=== PATIENT | male | born 1955 | race Caucasian/White ===

== ENCOUNTER → 2018-05-17 | Outpatient (CLI) | payer BC ==
[2018-05-17 12:09] LABS: Blood Urea Nitrogen 17 mg/dL (9-20)
--- NOTE | 2018-05-17 15:54 | CT ---
EXAMINATION TYPE: CT pelvis w con DATE OF EXAM: 05/17/2018 COMPARISON: None INDICATION: Prostate CA DLP: 965.7 mGycm, Automated exposure control for dose reduction was used. CONTRAST: 100 mL of Isovue 300. Study performed with Oral Contrast TECHNIQUE: Axial images were obtained from above the iliac crests to the pubic rami in the axial plan e at 5 mm thick sections. Reconstructed images are reviewed on the computer in the coronal plane. FINDINGS: CT PELVIS: Vascular calcification is within the aorta. Loops of bowel within the visualized abdomen and pelvis are normal. There are loops of bowel whic h are incompletely distended or lack oral contrast limiting their evaluation. Appendix: Normal as visualized. Urinary bladder: Normal. Genitourinary structures: Prostate contains a couple of calcifications. Patient's known prostate canc er is not identified by CT. Osseous structures: No suspicious lytic or sclerotic lesions. Lymphadenopathy: No suspicious enlarged inguinal pelvic or greater canal adenopathy is evident. There are scattered small inguinal lymph nodes present. The largest measures 0.9 cm. IMPRESSIONS: 1. No suspicious changes to suggest metastatic disease from prostate cancer within the [id number] .
--- NOTE | 2018-05-19 11:26 | NM ---
EXAMINATION TYPE: NM bone scan whole body DATE OF EXAM: 05/17/2018 COMPARISON: Correlation CT pelvis 05/17/2018 HISTORY: 62-year-old male history of prostate cancer Technique: Delayed whole-body scanning was performed following the injection of 24.6 mCi Tc 99m MDP. Images acquired 3.5 hours post injection. FINDINGS: Degenerative tracer activity in the shoulders and in the right greater than left forefeet. No suspici ous distribution of tracer activity to suggest osseous metastatic disease. Focal uptake along the ant erior aspects of the proximal tibias on both sides corresponds to the patellar tendon insertion. IMPRESSION: No scintigraphic evidence for osseous metastatic disease.
== END | disposition home or self-care (01) ==
LOC: RADNMMAIN 11:30
PROVIDERS: ATTEND Urology
DX: C61 Malignant neoplasm of prostate (principal)
CPT/HCPCS: 82565; 84520; 72193; 78306; A9503; Q9967

== ENCOUNTER → 2018-07-04 | Outpatient (CLI) | payer BC ==
[2018-07-04 11:12] LABS: Basophils # (A) 0.1 k/uL (0-0.2); Basophils % (A) 1 %; Eosinophils # (A) 0.2 k/uL (0-0.7); Eosinophils % (A) 2 %; HCT 51.4 % (39.0-53.0); HGB 16.6 gm/dL (13.0-17.5); Lymphocytes # (A) 2.1 k/uL (1.0-4.8); Lymphocytes % (A) 27 %; MCH 32.8 pg (25.0-35.0); MCHC 32.2 g/dL (31.0-37.0); MCV 101.8 fL (80.0-100.0); Macrocytosis Slight; Monocytes # (A) 0.7 k/uL (0-1.0); Monocytes % (A) 8 %; Neutrophils # (A) 4.7 k/uL (1.3-7.7); Neutrophils % (A) 60 %; Platelet Count 279 k/uL (150-450); RBC 5.06 m/uL (4.30-5.90); RDW 13.4 % (11.5-15.5); WBC 7.8 k/uL (3.8-10.6)
[2018-07-04 11:32] LABS: Anion Gap 9 mmol/L; Blood Urea Nitrogen 15 mg/dL (9-20); Calcium 9.5 mg/dL (8.4-10.2); Carbon Dioxide 24 mmol/L (22-30); Chloride 107 mmol/L (98-107); Glucose 81 mg/dL (74-99); Potassium 4.6 mmol/L (3.5-5.1); Sodium 140 mmol/L (137-145)
== END ==
LOC: LABPAT 10:22
PROVIDERS: ATTEND Urology
DX: Z01.818 Encounter for other preprocedural examination (principal); Z01.812 Encounter for preprocedural laboratory examination; C61 Malignant neoplasm of prostate; I10 Essential (primary) hypertension
CPT/HCPCS: 80048; 85025; 93005

== ENCOUNTER 2018-07-11 07:51 | Day surgery (SDC) | payer BC ==
[2018-07-05 12:56] VITALS: BMI 30.5
--- NOTE | 2018-07-08 17:57 | P.GSHP ---
History of Present Illness H&P Date: 07/07/18 Chief Complaint: Prostate cancer The patient is a 62-year-old white male evaluated for an elevated PSA level of 8.73. He has no family history of prostate cancer. Prostate ultrasound revealed a prostate volume of 45.6 mL, with no echogenic abnormalities. Biopsies showed Zoe 6 and 8 adenocarcinoma in 5 of 12 biopsies. The Zoe 8 disease was at the right lateral base and right lateral mid gland. A computed tomography scan and bone scan were obtained for staging purposes and were negative. He was offered the options of robotic-assisted laparoscopic prostatectomy (RALP) versus IMRT/ADT. He has elected to be treated via the latter, and received a Lupron injection on 06/27/2018. He desires a transperineal SpaceOar implant prior to the radiation therapy. - Genitourinary (Female) Genitourinary: Reports urinary frequency Past Medical History Past Medical History: Deep Vein Thrombosis (DVT), Hyperlipidemia Additional Past Medical History / Comment(s): Prostate Cancer, DVT Right leg, Graves disease 3 years ago History of Any Multi-Drug Resistant Organisms: None Reported Past Anesthesia/Blood Transfusion Reactions: No Reported Reaction Smoking Status: Current every day smoker - Past Family History Mother Family Medical History: No Reported History Medications and Allergies Home Medications Medication Instructions Recorded Confirmed Type Atorvastatin Calcium [Lipitor] 10 mg PO DAILY 07/05/18 07/05/18 History Sildenafil Citrate [Viagra] 25 mg PO ONCE PRN 07/05/18 07/05/18 History Allergies Allergy/AdvReac Type Severity Reaction Status Date / Time No Known Allergies Allergy Verified 07/05/18 12:44 Surgical - Exam - General well developed, well nourished, no distress - Respiratory normal respiratory effort - Abdomen Abdomen: soft, non tender, no guarding, no rigid, no rebound - Genitourinary normal penis with no external lesions, testicles non-tender - Rectum Rectum: normal sphincter tone, no masses, other (Prostate moderately enlarged but smooth) - Psychiatric oriented to time, oriented to person, oriented to place, speech is normal, memory intact Assessment and Plan (1) Malignant neoplasm of prostate Status: Acute Code(s): C61 - MALIGNANT NEOPLASM OF PROSTATE SNOMED Code(s): 203568248 Plan: Transperineal SpaceOar implant. The patient has a good understanding of the procedure, and the rationale for it. Risks include anesthesia, and the fact that the implant will need to be aborted if there is rectal perforation.
[~2018-07-11 07:51] MED LIST: HYDROmorphone 0.5 MG/0.5 ML SYRINGE IVP PRN; LACTATED RINGERS 1,000 ML IV SCH; LIDOCAINE 1% 20 ML VIAL (10MG/ML) FOR IV START INTRADERMA PRN; ONDANSETRON 4 MG/2 ML VIAL IVP ONE; ceFAZolin IN SWFI 2 GM/20 ML SYRINGE IVP ONE; fentaNYL (PF) 50 MCG/ML 2 ML AMP IV PRN
[2018-07-11 09:06] VITALS: RESP 16
[2018-07-11] MEDS ORDERED: PROPOFOL 10 MG/ML 20 ML VIAL IV ONE (09:11)
[2018-07-11] MEDS ORDERED: fentaNYL (PF) 50 MCG/ML 2 ML AMP ONE (09:11)
[2018-07-11] MEDS ORDERED: SUCCINYLCHOLINE CHLORIDE 100 MG/5 ML SYR IV ONE (09:11)
[2018-07-11] MEDS ORDERED: LIDOCAINE 1% INJ 10MG/ML (20 ML MDV) ONE (09:11)
[2018-07-11] MEDS ORDERED: MIDAZOLAM 2 MG/2 ML VIAL ONE (09:11)
[2018-07-11] MEDS ORDERED: PHENYLEPHRINE-0.9% NACL SYG 1 MG/10 ML SYRINGE ONE (09:11)
[2018-07-11] MEDS ORDERED: LIDOCAINE 1% (PF) 10 MG/ML (30 ML SDV) SQ ONE (09:39)
[2018-07-11 10:16] VITALS: TEMP 97
--- NOTE | 2018-07-11 11:39 | P.OP ---
Date of Procedure: 07/11/18 Preoperative Diagnosis: Prostate Cancer Postoperative Diagnosis: Same Procedure(s) Performed: Insertion of SpaceOar Implant Anesthesia: AILYN Surgeon: Danny Zimmerman Estimated Blood Loss (ml): 0 IV fluids (ml): 600 Pathology: none sent Condition: stable Disposition: PACU Indications for Procedure: The patient is a 62-year-old white male evaluated for an elevated PSA level of 8.73. He has no family history of prostate cancer. Prostate ultrasound reveale d a prostate volume of 45.6 mL, with no echogenic abnormalities. Biopsies showed Zoe 6 and 8 adenocarcinoma in 5 of 12 biopsies. The War[place] 8 disease was at the right lateral base and right lateral mid gland. A computed tomography scan and bone scan were obtained for staging purposes and were negative. He was offered the options of robotic-assisted laparoscopic prostatectomy (RALP) versus IMRT/ADT. He has elected to be treated via the latter, and received a Lupron injection on 06/27/2018. He desires a transperineal SpaceOar implant prior to the radiation therapy. Operative Findings: Excellent distance created between prostate and rectum. Description of Procedure: The patient was taken to the operating room and placed in the dorsolithotomy position, with his legs supported in Royce stirrups. The external genitalia was prepped and draped sterilely. The Bruel and Kjaer transrectal ultrasound probe was placed intrarectally. The prostate was imaged. The probe was then placed within the stabilizing stand. Using a spinal needle, 1% lidocaine was injected in the perineal midline. The spinal needle was then advanced under ultrasonic guidance to the level of the urogenital diaphragm, and lidocaine was used to infiltrate the tissues as the needle was withdrawn. Next, the SpaceOar needle was passed through the midline of the perineum, 1-2 cm anterior to the anal opening. The needle was slowly advanced under ultrasonic guidance until the needle tip was located within the fat plane between the prostate and rectum, at the level of the mid prostate gland. The needle was confirmed to be midline on the axial imaging. A small amount of normal saline was injected for hydrodissection. Next, the SpaceOar components were mixed and loaded into the Y connector per protocol. The Y connector was then connected to the needle, and the components were injected slowly over a course of approximately 12 seconds. Significant distance was created between the prostate and rectum, as desired. It should be noted that at no point was there any concern of rectal perforation. The needle was withdrawn, as well as the transrectal ultrasound probe, and the procedure was terminated. The patient tolerated the procedure well and was taken to the recovery room in stable condition.
[2018-07-11 12:07] VITALS: BP 129/70; PULSE 68
== END 2018-07-11 12:05 | disposition home or self-care (01) ==
LOC: OR 07:51
PROVIDERS: ATTEND Urology
DX: C61 Malignant neoplasm of prostate (principal); E78.5 Hyperlipidemia, unspecified; Z86.718 Personal history of other venous thrombosis and embolism; E05.00 Thyrotoxicosis with diffuse goiter without thyrotoxic crisis or storm; F17.200 Nicotine dependence, unspecified, uncomplicated; Z79.899 Other long term (current) drug therapy
CPT/HCPCS: 55874; J2250; J2405; J2001 ×2; J3010; J2370; J0330; J2704; J0690

== ENCOUNTER → 2018-08-08 | Outpatient (CLI) | payer BC, OTHER ==
--- NOTE | 2018-08-09 07:50 | US ---
EXAMINATION TYPE: US gallbladder DATE OF EXAM: 08/08/2018 COMPARISON: NONE CLINICAL HISTORY: K80 Cholelithiasis. Calculus of gallbladder with acute cholecystitis EXAM MEASUREMENTS: Liver Length: 15.5 cm Gallbladder Wall: 0.27 cm CBD: 0.53 cm Right Kidney: 10.0 x 6.5 x 6.6 cm Pancreas: Tail obscured by overlying bowel gas Liver: appears wnl Gallbladder: Length measures: 10.4 cm, appears distended. Evidence for sonographic Tidwell's sign: no CBD: wnl Right Kidney: Anechoic area seen superiorly measurin.7 x 1.0 x 0.7 cm IMPRESSION: 1. Hydropic size of the gallbladder without cholelithiasis nor common bile duct dilatation or additio nal findings to suggest acute cholecystitis. Biliary dyskinesia is suspected and HIDA scan with CCK i s recommended. 2. Benign-appearing simple right 1.7 cm renal cyst.
== END ==
LOC: RADUSMAIN 17:44
PROVIDERS: ATTEND Radiology Radiation Oncology
DX: K80.00 Calculus of gallbladder with acute cholecystitis without obstruction (principal)
CPT/HCPCS: 76705

== ENCOUNTER → 2019-09-29 | Outpatient (CLI) | payer OTHER | END | disposition home or self-care (01) | LOC: LABWHC1 10:02 | PROVIDERS: ATTEND Radiology Radiation Oncology | DX: C61 Malignant neoplasm of prostate (principal); Z92.3 Personal history of irradiation; F17.210 Nicotine dependence, cigarettes, uncomplicated | CPT/HCPCS: 36415; 84153 ==

== ENCOUNTER 2020-04-12 13:42 | Emergency (ER) | payer OTHER ==
[2020-04-12 14:03] VITALS: BP 150/85; PULSE 88; RESP 18; TEMP 98.4
[2020-04-12] MEDS ORDERED: LIDOCAINE 1% INJ 10MG/ML (20 ML MDV) SQ ONE (14:17)
[2020-04-12] MEDS ORDERED: BACITRACIN OINT 1 EACH PACKET TOPICAL ONE (14:17)
[2020-04-12] MEDS ORDERED: DIPH,PERTUS(ACELL)TETVAC-LF 0.5 ML VIAL IM ONE (14:18)
--- NOTE | 2020-04-12 14:34 | XR ---
EXAMINATION TYPE: XR finger LT DATE OF EXAM: 04/12/2020 CLINICAL HISTORY: pain Left thumb digit. TECHNIQUE: 3 views of the left thumb digit are submitted. COMPARISON: None FINDINGS: No displaced fracture is seen with certainty. Joint spaces are well-preserved. Soft tissue injury noted without evidence for radiopaque foreign body. IMPRESSION: No acute displaced fracture or dislocation.
--- NOTE | 2020-04-12 14:47 | ED ---
Wound/Laceration HPI - General Chief Complaint: Wound/Laceration Stated Complaint: Finger Lac Time Seen by Provider: 04/12/20 14:10 Source: patient Mode of arrival: ambulatory Limitations: no limitations - History of Present Illness Initial Comments: Patient is a 64-year-old male presenting to emergency Department with complaints of a laceration to his left thumb. Patient states about an hour ago he was using a table saw when it accidently slipped and he cut his left thumb. Bleeding is controlled at this time with pressure and a bandage. He denies being on blood thinners. He does not remember his last tetanus vaccine. He has no further complaints at this time. Upon arrival to the ER his vitals are stable. - Related Data Home Medications Medication Instructions Recorded Confirmed Atorvastatin Calcium [Lipitor] 10 mg PO DAILY 07/05/18 07/05/18 Previous Rx's Medication Instructions Recorded Cephalexin [Keflex] 500 mg PO BID 3 Days #6 cap 04/12/20 Allergies Allergy/AdvReac Type Severity Reaction Status Date / Time No Known Allergies Allergy Verified 04/12/20 13:59 Review of Systems ROS Statement: Those systems with pertinent positive or pertinent negative responses have been documented in the HPI. ROS Other: All systems not noted in ROS Statement are negative. Past Medical History Past Medical History: Hyperlipidemia Additional Past Medical History / Comment(s): Prostate CA (in remission) History of Any Multi-Drug Resistant Organisms: None Reported Additional Past Surgical History / Comment(s): "bypass to BLE" Past Psychological History: No Psychological Hx Reported Smoking Status: Current every day smoker Past Alcohol Use History: None Reported Past Drug Use History: None Reported General Exam - General Exam Comments Initial Comments: GENERAL: Patient is well-developed and well-nourished. Patient is nontoxic and in no ac freddy distress. HEAD: Atraumatic, normocephalic. EYES: Pupils equal round and reactive to light, extraocular movements intact, sclera anicteric, conjunctiva are normal. Eyelids were unremarkable. ENT: TMs normal, nares patent, oropharynx clear without exudates. Moist mucous membranes. NECK: Normal range of motion, supple without lymphadenopathy or JVD. LUNGS: Unlabored respirations. Breath sounds clear to auscultation bilaterally and equal. No wheezes rales or rhonchi. HEART: Regular rate and rhythm without murmurs, rubs or gallops. ABDOMEN: Soft, nontender, normoactive bowel sounds. No guarding, no rebound. No masses appreciated. : Deferred MUSCULOSKELETAL: Normal extremities with adequate strength and normal range of motion, no pitting or edema. No clubbing or cyanosis. NEUROLOGICAL: Patient is alert and oriented x 3. Motor and sensory are also intact. Cranial nerves II through XII grossly intact. Symmetrical smile. Normal speech, normal gait. PSYCH: Normal mood, normal affect. SKIN: Warm, Dry, normal turgor. Patient has a U shaped laceration to the palmar aspect of his left thumb, no nail involvement. This is approximately 3 cm in length altogether. Bleeding is controlled at this time. Limitations: no limitations Course Vital Signs 04/12/20 14:00 Temperature 98.4 F Pulse Rate 88 Respiratory 18 Rate Blood Pressure 150/85 O2 Sat by Pulse 98 Oximetry Procedures - Laceration Laceration #1 Consent Obtained: verbal consent Indication: laceration Site: hand (Left thumb, palmar aspect) Size (cm): 3 Description: irregular (U-shaped) Depth: simple, single layer Anesthetic Used: lidocaine 1% Anesthesia Technique: nerve block Amount (mls): 3 Pre-repair: irrigated extensively Type of Sutures: nylon Size of Sutures: 5-0 Number of Sutures: 7 Technique: simple, interrupted Patient Tolerated Procedure: well Medical Decision Making - Medical Decision Making Patient is a 64-year-old male here with a U-shaped laceration on his left thumb, 3 cm in length total. Bleeding is controlled. He is not on blood thinners. His tetanus vaccine was updated today. Patient's wound was cleaned, closed with 7, 5-0 sutures. Patient tolerated procedure well. Did do an x-ray which reveals no acute fractures dislocations. I did give him a tablet of Keflex in the ER and will continue him on a few days of Keflex outpatient. He is in agree ment with this plan of care. He is stable for discharge. He will have stitches removed in 7-10 days. Return parameters were discussed with the patient he verbalizes understanding. Disposition Clinical Impression: Laceration of left thumb Disposition: HOME SELF-CARE Condition: Stable Instructions (If sedation given, give patient instructions): Care For Your Stitches (ED) Additional Instructions: Please return to the Emergency Department if symptoms worsen or any other concerns. Take antibiotic as prescribed. Sutures need to be removed in 7-10 days. Keep wound clean and dry. Prescriptions: Cephalexin [Keflex] 500 mg PO BID 3 Days #6 cap Is patient prescribed a controlled substance at d/c from ED?: No Referrals: Abdullahi Champion MD [Primary Care Provider] - 1-2 days
[2020-04-12] MEDS ORDERED: CEPHALEXIN 500 MG CAP PO STA (14:48)
== END 2020-04-12 15:44 | disposition home or self-care (01) ==
LOC: EC 13:42
DX: S61.012A Laceration without foreign body of left thumb without damage to nail, initial encounter (principal); E78.5 Hyperlipidemia, unspecified; F17.200 Nicotine dependence, unspecified, uncomplicated; Z79.899 Other long term (current) drug therapy; Z23 Encounter for immunization; Z85.46 Personal history of malignant neoplasm of prostate; W26.8XXA Contact with other sharp object(s), not elsewhere classified, initial encounter
CPT/HCPCS: 73140; 90715; 99283; 12002; 90471; J2001

== ENCOUNTER → 2020-05-11 | Outpatient (CLI) | payer OTHER | END | disposition home or self-care (01) | LOC: LABWHC1 11:43 | PROVIDERS: ATTEND Radiology Radiation Oncology | DX: C61 Malignant neoplasm of prostate (principal); Z92.3 Personal history of irradiation; F17.210 Nicotine dependence, cigarettes, uncomplicated | CPT/HCPCS: 36415; 84153 ==

== ENCOUNTER → 2022-03-17 | Outpatient (CLI) | payer MEDICARE, OTHER ==
[2022-03-17 13:54] LABS: African American GFR (CKD) >90 (>60 ml/min/1.73 sqM); Blood Urea Nitrogen 14 mg/dL (9-20); Non-African American GFR(CKD) >90 (>60 ml/min/1.73 sqM)
--- NOTE | 2022-03-17 14:44 | CT ---
EXAMINATION TYPE: CT soft tissue neck w con DATE OF EXAM: 03/17/2022 2:22 PM COMPARISON: None HISTORY: r/o fb, fishbone stuck in throat CT DLP: 535 mGycm Automated exposure control for dose reduction was used. CONTRAST: CT scan of the neck is performed following with IV Contrast, patient injected with 70cc mL of Isovue 300. Axial images are obtained, coronal and sagittal reformatted images are reviewed. FINDINGS: The thyroid gland is mildly prominent but symmetric without focal mass. The larynx including the cricoid, arytenoid, thyroid cartilages and vocal cords are normal and symmet pili. The tongue base, epiglottis, aryepiglottic folds, piriform sinuses and vallecula are normal and symme tric. There is no pharyngeal or parapharyngeal mass within the oral and nasopharynx. The parotid and submandibular glands are normal and symmetric. The great vessels of the neck are normal. There is no adenopathy. There is no soft tissue mass. There is no definite evidence for foreign body within the pharynx, airway or upper esophagus. IMPRESSION: No significant abnormality seen.
== END | disposition home or self-care (01) ==
LOC: RADCTMAIN 13:23
PROVIDERS: ATTEND Otolaryngology
DX: S10.15XA Superficial foreign body of throat, initial encounter (principal)
CPT/HCPCS: 82565; 84520; 70491; 36415; Q9967

== ENCOUNTER 2022-04-05 09:51 | Day surgery (SDC) | payer MEDICARE, OTHER ==
[~2022-04-05 09:51] MED LIST changes: +DEXAMETHASONE SOD PHOSPHATE 4 MG/ML 1 ML VIAL IV ONE; +DEXAMETHASONE SOD PHOSPHATE 4 MG/ML 1 ML VIAL IV PRN; +FAMOTIDINE 20 MG/2 ML VIAL IV PRN; +LIDOCAINE 1% (10MG/ML) FOR IV START INTRADERMA PRN; -LIDOCAINE 1% 20 ML VIAL (10MG/ML) FOR IV START INTRADERMA PRN; +MIDAZOLAM 2 MG/2 ML VIAL IV PRN; +ONDANSETRON 4 MG/2 ML VIAL IVP PRN; -ceFAZolin IN SWFI 2 GM/20 ML SYRINGE IVP ONE; -fentaNYL (PF) 50 MCG/ML 2 ML AMP IV PRN
[2022-04-05 11:44] LABS: Glucose,Whole Blood 111 mg/dL (70-110)
[2022-04-05] MEDS ORDERED: LIDOCAINE 2% INJ 20 MG/ML (2 ML VIAL) ONE (13:10)
[2022-04-05] MEDS ORDERED: ROCURONIUM 10 MG/ML (5 ML VIAL) IV ONE (13:10)
[2022-04-05] MEDS ORDERED: fentaNYL (PF) 50 MCG/ML 2 ML AMP ONE (13:10)
[2022-04-05] MEDS ORDERED: MIDAZOLAM 2 MG/2 ML VIAL ONE (13:10)
[2022-04-05] MEDS ORDERED: NEOSTIGMINE 1 MG/ML 10 ML VIAL ONE (13:10)
[2022-04-05] MEDS ORDERED: GLYCOPYRROLATE 0.2 MG/ML 2 ML VIAL ONE (13:10)
[2022-04-05] MEDS ORDERED: DEXAMETHASONE SOD PHOS (MDV) 100 MG/10 ML VIAL ONE (13:10)
[2022-04-05] MEDS ORDERED: PROPOFOL 10 MG/ML 20 ML VIAL IV ONE (13:10)
[2022-04-05] MEDS ORDERED: SUCCINYLCHOLINE CHLORIDE 200 MG/10 ML VIAL IV ONE (13:10)
--- NOTE | 2022-04-05 14:03 | P.OP ---
Date of Procedure: 04/05/22 Preoperative Diagnosis: Globus sensation rule out foreign body in the throat Postoperative Diagnosis: Same Procedure(s) Performed: Direct laryngoscopy Anesthesia: AILYN Surgeon: Delfino Ramirez Estimated Blood Loss (ml): 0 Pathology: none sent Condition: stable Disposition: PACU Indications for Procedure: Is a 66-year-old white male who swallowed some chicken and felt that he had a chicken bone lodged in the throat. He had plain x-rays which were negative flexible laryngoscopy which was negative and computed tomography scan of the neck which was negative. He still has foreign body sensation in the throat anterior laryngeal area diffusely and therefore we proceeded with direct laryngoscopy. Operative Findings: Mild diffuse lingual tonsillar hypertrophy however no focal lesions or erythema purulence or foreign body. Description of Procedure: The patient was brought in the operative suite and placed in a supine position. The patient underwent induction of general anesthesia with oral endotracheal intubation without difficulty. The patient was prepped and draped in the usual aseptic fashion. Tooth Guard was placed. Direct laryngoscopy was performed with systematic evaluation of the base of tongue vallecula both piriform sinuses post cricoid area and endolarynx. No abnormal masses or foreign bodies were noted. Laryngoscope and tooth guard were removed. Palpation of the base of tongue and vallecula did not reveal any abnormal masses or lesions otherwise either. The patient was then allowed to emerge from general anesthesia having tolerated well was extubated in the operating suite and transferred to postop recovery area in satisfactory condition.
[2022-04-05 14:24] VITALS: TEMP 96.8
[2022-04-05 15:21] VITALS: RESP 20
[2022-04-05 15:48] VITALS: BP 129/82; PULSE 80
== END 2022-04-05 15:52 | disposition home or self-care (01) ==
LOC: OR 09:51
PROVIDERS: ATTEND Otolaryngology
DX: J06.0 Acute laryngopharyngitis (principal); G47.30 Sleep apnea, unspecified; E07.9 Disorder of thyroid, unspecified; E78.5 Hyperlipidemia, unspecified; N40.0 Benign prostatic hyperplasia without lower urinary tract symptoms; F17.210 Nicotine dependence, cigarettes, uncomplicated; Z79.899 Other long term (current) drug therapy
CPT/HCPCS: 31525; J2250; J0330; J1100 ×2; J2710; J2405; J3010; J2704; J2001

== ENCOUNTER → 2023-11-01 | Outpatient (CLI) | payer MEDICARE, OTHER ==
[2023-11-01 18:29] LABS: HCT 50.7 % (39.6-50.0); HGB 16.9 g/dL (13.0-17.0); MCH 33.6 pg (27.0-32.0); MCHC 33.3 g/dL (32.0-37.0); MCV 100.8 FL (80.0-97.0); Mean Platelet Volume 9.8 FL (9.5-12.2); NRBC Per 100 WBC 0 X 10*3/uL (0.00-0.01); Platelet Count 213 X 10*3/uL (140-440); RBC 5.03 X 10*6/uL (4.40-5.60); RDW 14.4 % (11.5-14.5); WBC 6.25 X 10*3/uL (4.50-10.00)
[2023-11-01 18:42] LABS: Blood Urea Nitrogen 16.6 mg/dL (9.0-27.0); Carbon Dioxide 25.4 mmol/L (21.6-31.8); Chloride 103 mmol/L (96-109); Potassium 4.8 mmol/L (3.5-5.5); Sodium 138 mmol/L (135-145)
== END | disposition home or self-care (01) ==
LOC: LABPAT 14:01
PROVIDERS: ATTEND Internal Medicine Interventional Cardiology
DX: Z01.812 Encounter for preprocedural laboratory examination (principal); R94.39 Abnormal result of other cardiovascular function study
CPT/HCPCS: 36415; 80051; 82565; 84520; 85027

== ENCOUNTER 2023-11-07 10:41 | Inpatient (IN) | payer MEDICARE, OTHER ==
[2023-11-01 09:44] VITALS: BMI 32.1
[~2023-11-07 10:41] MED LIST changes: +ALPRAZolam 0.25 MG TAB PO PRN; +ALPRAZolam 0.5 MG TAB PO PRN; -DEXAMETHASONE SOD PHOSPHATE 4 MG/ML 1 ML VIAL IV ONE; -DEXAMETHASONE SOD PHOSPHATE 4 MG/ML 1 ML VIAL IV PRN; -FAMOTIDINE 20 MG/2 ML VIAL IV PRN; +HEPARIN SODIUM,PORCINE (1 ML) 2,500 UNIT in SODIUM CHLORIDE 0.9% 250 ML IRRIGATION PRN; +HEPARIN SODIUM,PORCINE 10,000 UNIT in SODIUM CHLORIDE 0.9% 1,000 ML IRRIGATION PRN; -HYDROmorphone 0.5 MG/0.5 ML SYRINGE IVP PRN; -LACTATED RINGERS 1,000 ML IV SCH; -LIDOCAINE 1% (10MG/ML) FOR IV START INTRADERMA PRN; -MIDAZOLAM 2 MG/2 ML VIAL IV PRN; +NITROGLYCERIN SL TABS 0.4 MG TAB SUBLINGUAL PRN; -ONDANSETRON 4 MG/2 ML VIAL IVP ONE; -ONDANSETRON 4 MG/2 ML VIAL IVP PRN
[2023-11-07] MEDS: SODIUM CHLORIDE 0.9% 1,000 ML IV ONE (10:48)
[2023-11-07 11:01] LABS: Glucose,Whole Blood 120 mg/dL (70-110)
[2023-11-07] MEDS: fentaNYL (PF) 50 MCG/1 ML VIAL IVP ONE (12:09)
[2023-11-07] MEDS: MIDAZOLAM 2 MG/2 ML VIAL IVP ONE (12:09)
[2023-11-07] MEDS: LIDOCAINE 1% INJ 10MG/ML (20 ML MDV) SQ ONE (12:09)
[2023-11-07] MEDS: VERAPAMIL 2.5 MG/ML 4 ML VIAL INTRAARTER ONE (12:10)
[2023-11-07] MEDS: VERAPAMIL SYRINGE (5 MG/10 ML) INTRAARTER ONE (12:11)
[2023-11-07] MEDS: HEPARIN SODIUM 1,000 UN/ML (10ML VL) IVP ONE (12:15)
[2023-11-07] MEDS: HEPARIN SODIUM,PORCINE 10,000 UNIT in SODIUM CHLORIDE 0.9% 1,000 ML IRRIGATION ONE (12:24)
[2023-11-07] MEDS: IOPAMIDOL-370 100ML BTL INTRATHECA ONE (12:24)
[2023-11-07] MEDS: HEPARIN SODIUM,PORCINE (1 ML) 2,500 UNIT in SODIUM CHLORIDE 0.9% 250 ML IRRIGATION ONE (12:25)
[2023-11-07] MEDS ORDERED: RX INFO: IV CONTRAST WAS GIVEN 1 EACH MISC MISCELLANE PRN (12:41)
--- NOTE | 2023-11-07 12:48 | P.CARDCATH ---
Date of Procedure: 11/07/23 Description of Procedure: Cardiac Catheterization: The patient is a 68-year-old male with known history of hyperlipidemia history of PAD status post revascularization who as part of his preoperative evaluation for hip surgery had a regular stress test where he had EKG changes at low exercise duration. Recommendations were made regarding cardiac catheterization, the risks and the complications were discussed with the patient who is in full understanding and agreement. 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 Using Xylocaine Anesthesia and modified Seldinger technique, a 6-Angolan sheath was introduced in the right radial artery . Subsequently, selective coronary angiography was performed using a 5-Angolan 3.5 bend Brandin catheter. Multiple views of the coronary artery including hemiaxial views were obtained. The 5 Angolan pigtail catheter was used to cross the aortic valve and LVEDP was calculated. Following that, catheter and sheath were removed. Hemostasis was obtained with deployment of vascular band . There was no immediate complication. Patient was returned to room in stable condition. Of note, the patient received a total of 5000 units of intravenous heparin as well as intra-arterial verapamil. Findings: Fluoroscopy: Severe calcification of the left main and proximal LAD was noted Left main: This is a large size vessel, bifurcating into the LAD and left circumflex, calcified. The left main distally has a 70 to 80% eccentric lesion at the bifurcation. LAD: This is a large size vessel, reaching to the apex, giving rise to 2 diagonal branch. The LAD at the ostium has a 95% stenosis, the rest of the vessel has no high-grade stenosis Left circumflex: This is a nondominant vessel giving rise to a large obtuse marginal branch. The ostium of the left circumflex has an 80 to 90% stenosis, the rest of the vessel has no high-grade stenosis RCA: This is a large dominant vessel, bifurcating into PDA and PLV, the mid RCA has diffuse intimal disease has 20 to 30% without any evidence of high-grade stenosis. Left Ventriculogram: Not performed Hemodynamics: There was no gradient across aortic valve, LVEDP was 20-22 mmHg Conclusion: 1. Calcified left main 2. Severe distal left main stenosis involving the ostium of the LAD and left circumflex 3. Mild disease in the mid right 4. Elevated LVEDP Recommendations: In view of the anatomy and the history of diabetes I have recommended to proceed with evaluation for CABG. The findings and the recommendations were discussed with the patient and the family and they were in full understanding and agreement. Duration of sedation is 15 minutes.
[2023-11-07] MEDS: ASPIRIN 325 MG TAB PO STA (14:47)
[2023-11-07] MEDS: NICOTINE 21MG/24HR PATCH TRANSDERM STA (15:14)
--- NOTE | 2023-11-07 16:13 | P.GSCN ---
History of Present Illness Consult date: 11/07/23 Reason for Consult: Coronary artery disease with left main disease Requesting physician: Radha Boston History of present illness: This is a 68-year-old gentleman who follows outpatient with Dr. Abdullahi Champion for primary care as well as Dr. Boston for cardiology. He has a previous medical history of hypertension, hyperlipidemia, peripheral arterial disease with previous aorto bifemoral bypass, obstructive sleep apnea with home CPAP use, type 2 diabetes, prostate cancer in 2020 status post radiation, current tobacco dependence, arthritis, and previous history of COVID. This gentleman needs a left total hip arthroplasty in underwent stress testing for cardiac clearance. Unfortunately his treadmill stress test indicated ischemic changes so he was sent to cardiology for workup. The patient denies any chest pain, shortness of breath, or any other symptomatology of angina. In the cardiology office he had a echocardiogram completed demonstrating normal left ventricular systolic function with EF 55-60%, no regional wall motion abnormalities, mild mitral regurgitation mild aortic stenosis, and mild tricuspid regurgitation. He was recommended to wear undergo heart catheterization which was completed today by Dr. Boston and which revealed distal left main stenosis 70 to 80%, ostial LAD stenosis 95% as well as ostial left circumflex stenosis 80 to 90%. Due to these findings consultation was placed to Dr. Rosales from cardiothoracic surgery for revascularization recommendations. Review of Systems Review of systems was completed and was negative except as noted - Musculoskeletal Musculoskeleta Comment(s): Arthritis pain left hip Past Medical History Past Medical History: Coronary Artery Disease (CAD), Cancer, Diabetes Mellitus, Deep Vein Thrombosis (DVT), Hyperlipidemia, Hypertension, Sleep Apnea/CPAP/BIPAP, Thyroid Disorder Additional Past Medical History / Comment(s): Prostate CA-received radiation, 2017 dvt rt leg 30 yrs ago,uses cpap, thyroid 4-5 yrs Graves disease, peripheral arterial disease History of Any Multi-Drug Resistant Organisms: None Reported Additional Past Surgical History / Comment(s): Aortobifemoral bypass, right eye surgery due to Graves., Past Anesthesia/Blood Transfusion Reactions: No Reported Reaction Past Psychological History: No Psychological Hx Reported Smoking Status: Current every day smoker Past Alcohol Use History: None Reported Past Drug Use History: None Reported Additional History: Currently smokes 1 pack cigarettes per day for greater than 40 years - Past Family History Mother Family Medical History: No Reported History Additional Family Medical History / Comment(s): "Bad legs." Medications and Allergies Home Medications Medication Instructions Recorded Confirmed Type Tamsulosin HCl [Flomax] 0.4 mg PO HS 04/04/22 11/01/23 History buPROPion HCL [buPROPion HCL Xl] 150 mg PO HS 04/04/22 11/01/23 History Atorvastatin [Lipitor] 10 mg PO HS 10/23/23 11/01/23 History Pioglitazone [Actos] 15 mg PO DAILY 10/23/23 11/07/23 History metFORMIN HCL 500 mg PO DAILY 10/23/23 11/07/23 History Aspirin 325 mg PO BID 11/01/23 11/07/23 History Metoprolol Succinate [Metoprolol 25 mg PO DAILY 11/01/23 11/01/23 History Succinate ER] Allergies Allergy/AdvReac Type Severity Reaction Status Date / Time No Known Allergies Allergy Verified 11/07/23 10:52 Surgical - Exam Vital Signs Temp Pulse Resp BP Pulse Ox 98.7 F 77 16 174/71 97 11/07/23 11:03 11/07/23 11:03 11/07/23 11:03 11/07/23 11:03 11/07/23 11:03 CONSTITUTIONAL: Awake and alert, appears comfortable, cooperative, well- developed, well-nourished, no pain, no acute distress EYES: Pupils equal, round, reactive to light, normal ocular movement ENT: Moist mucous membranes without oral lesions present NECK: No masses, no bruits, trachea midline RESPIRATORY: Lungs sounds diminished bilaterally. Respirations even, nonlabored. Currently on room air with oxygen saturation 96%. Strong nonproductive cough. No chest wall deformities. No clubbing or cyanosis present CARDIOVASCULAR: S1, S2 present. Slow but regular rhythm, sinus bradycardia on telemetry. Palpable peripheral pulses bilaterally. Bilateral lower extremity edema present. No calf pain or tenderness noted. Left radial Royce's test less than 8 seconds. GASTROINTESTINAL: Abdomen soft, nontender, nondistended without masses or organomegaly noted. There is no rebound or guarding present. Active bowel sounds present 4 quadrants. GENITOURINARY: Deferred INTEGUMENTARY: Skin is warm and dry with evidence of good perfusion. Bilateral lower extremities with evidence of peripheral vascular disease NEUROLOGIC: Cranial nerves II through XII intact, normal coordination, no obvious motor or sensory deficits, speech is normal MUSKULOSKELETAL: Able to move all extremities, strength equal bilaterally, normal posture PSYCHIATRIC: Alert and oriented to person place and time, appropriate affect, intact judgment and insight CLINICAL FRAILTY SCORE 4 Results - Labs Abnormal Lab Results - Last 24 Hours (Table) 11/07/23 Range/Units 10:57 POC Glucose (mg/dL) 120 H (70-110) mg/dL - Imaging EKG: image reviewed Additional studies: Heart catheterization films were reviewed with Dr. Rosales Assessment and Plan Assessment: Coronary artery disease with left main disease Hypertension Hyperlipidemia Peripheral arterial disease with previous aorto bifemoral bypass Obstructive sleep apnea with home CPAP use Type 2 diabetes Prostate cancer in 2020 status post radiation Current tobacco dependence Arthritis Previous history of COVID Plan: The patient was seen and examined at the bedside with Dr. Rosales. Chart/diagn ostics reviewed. The usual perioperative course of open-heart surgery was discussed in detail with the patient and his family, risks and benefits were reviewed, all questions were answered. Preoperative testing was initiated, once Completed we will calculate STS risk score. Will perform 5 m walk test once once testing has been completed. Consultation placed to pulmonology for pulmonary optimization. At this time our plan is for off-pump coronary artery bypass surgery with left internal mammary artery, left radial artery harvest, possible greater saphenous vein harvest, ligation of the left atrial appendage by Dr. Rosales tomorrow afternoon November 08, 2023. Recommend continuing aspirin, statin, beta-shelly therapy. Patient was counseled regarding the need for complete smoking cessation. Medical management of other comorbidities per internal medicine, cardiology. More recommendations to follow. Thank you Dr. Boston for this consult, we look forward to working with you in the care of your patient. I have personally seen and examined the patient, performed the documentation and the assessment and plan as written. Number of minutes spent on the visit: 30. RADHA Macedo
--- NOTE | 2023-11-07 16:24 | US ---
EXAMINATION TYPE: US carotid duplex BILAT DATE OF EXAM: 11/07/2023 COMPARISON: NONE CLINICAL INDICATION: Male, 68 years old with history of preop cardiac surgery; Preop cardiac surgery. Diabetic, smoker x 53 years. TECHNIQUE: Carotid duplex ultrasound examination. Indirect Doppler criteria was utilized. 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 Shadowing plaque seen within left carotid artery, left b ulb, left ECA and left ICA. Minimal plaque seen right bulb. Color defect seen left proximal ECA. IMPRESSION: No evidence for hemodynamically significant stenosis Criteria for Assigning % of Stenosis / Diameter reduction (Estimation based on the indirect measurements of the internal carotid artery velocities (ICA PSV). 1. Normal (no stenosis)=ICA PSV < 125 cm/s: ratio < 2.0: ICA EDV<40 cm/s. 2. Less than 50% stenosis=ICA PSV < 125 cm/s: ratio < 2.0: ICA EDV<40 cm/s. 3. 50 to 69% stenosis=ICA PSV of 125 to 230 cm/s: ration 2.0 ? 4.0: ICA EDV 40-100 cm/s. 4. Greater than 70% stenosis to near occlusion= ICA PSV > 230 cm/s: ratio > 4.0: ICA EDV > 100 cm/s. 5. Near occlusion= ICA PSV velocities may be low or undetectable: variable ratio and ICA EDV. 6. Total occlusion=unable to detect flow.
[2023-11-07 16:29] LABS: Glucose,Whole Blood 104 mg/dL (70-110)
--- NOTE | 2023-11-07 16:29 | US ---
EXAMINATION TYPE: Pre-Operative Non-Invasive Evaluation of the hand for Potential Radial Artery Adin , Measurements only DATE OF EXAM: 11/07/2023 4:23 PM CLINICAL INDICATION: Male, 68 years old with history of measurements only; Pre op cardiac surgery SIDE PERFORMED: Left TECHNIQUE: Radial artery is measured utilizing real time linear array sonography. Dominant hand: Duplex Findings: Radial Artery: Color flow seen Measurements in mm, transverse view: Left Radial: Proximal: Origin of radial artery and upper proximal radial artery were obscured by IV. Prox -mid section measures 2.6 x 2.5 cm. This segment is not fully proximal. Mid: 4.3 x 3.5 mm Distal: 3.6 x 2.8 mm IMPRESSION: 1. Left-sided radial artery measurements as noted above. 2. Performing surgeon to determine viability as conduit.
[2023-11-07 16:58] LABS: Basophils % (A) 0 %; Eosinophils # (A) 0.1 k/uL (0-0.7); Eosinophils % (A) 2 %; HCT 48.2 % (39.0-53.0); HGB 15.6 gm/dL (13.0-17.5); Lymphocytes # (A) 1.9 k/uL (1.0-4.8); Lymphocytes % (A) 27 %; MCH 33.7 pg (25.0-35.0); MCHC 32.4 g/dL (31.0-37.0); MCV 104.1 fL (80.0-100.0); Macrocytosis Slight; Mean Platelet Volume 8.1; Monocytes # (A) 0.6 k/uL (0-1.0); Monocytes % (A) 9 %; Neutrophils # (A) 4.3 k/uL (1.3-7.7); Neutrophils % (A) 60 %; Platelet Count 194 k/uL (150-450); RBC 4.63 m/uL (4.30-5.90); RDW 13.9 % (11.5-15.5); WBC 7.1 k/uL (3.8-10.6)
[2023-11-07 17:03] LABS: INR 1.1 (<1.2); Partial Thromboplastin Time 26.5 sec (22.0-30.0); Prothrombin Time 12.1 sec (10.0-12.5)
--- NOTE | 2023-11-07 17:12 | US ---
EXAMINATION TYPE: US vein mapping BILAT DATE OF EXAM: 11/07/2023 4:15 PM COMPARISON: NONE CLINICAL INDICATION: Male, 68 years old with history of preop cardiac surgery; Pre op cardiac surgery . Smoker. SIDE PERFORMED: Bilateral TECHNIQUE: Lower extremity saphenous vein is examined and measured utilizing real time linear array sonography. DUPLEX FINDINGS: Greater Saphenous: Color flow seen Measurements in mm: Right Greater Saphenous: Groin: 5.1 x 4.6 mm High Thigh: 4.9 x 3.9 mm Mid Thigh: 5.2 x 3.8 mm Above Knee: 5.2 x 4.5 mm Knee: 5.1 x 4.6 mm Below Knee: 4.3 x 3.5 mm Mid Calf: 4.1 x 3.3 mm At Ankle: 4.5 x 3.2 mm Left Greater Saphenous: Groin: 5.2 x 5.8 mm High Thigh: 5.2 x 4.6 mm Mid Thigh: 3.6 x 3.4 mm Above Knee: 3.5 x 2.7 mm Knee: 3.8 x 2.7 mm Below Knee: 3.5 x 3.1 mm Mid Calf: 3.2 x 2.5 mm At Ankle: 2.6 x 2.1 mm IMPRESSION: 1. Bilateral GSV measurements listed above. 2. Performing surgeon to determine viability as conduit.
--- NOTE | 2023-11-07 17:13 | CT ---
EXAMINATION TYPE: CT chest wo con DATE OF EXAM: 11/07/2023 COMPARISON: None HISTORY: 68-year-old male assess aorta for clampability TECHNIQUE: Contiguous axial scanning of the chest without IV contrast. Coronal/sagittal reconstructio ns performed. CT DLP: 529mGycm. Automatic exposure control utilized for a dose reduction. FINDINGS: The heart is normal size without pericardial effusion. Extensive three-vessel coronary artery calcifi cations are present. Moderate aortic valve calcifications demonstrated. Ectatic ascending aorta at 3.9 cm. Mild to moderat e atherosclerotic arch calcifications with conventional arch vessel branching anatomy. At least mild atherosclerotic narrowing of the origin of the brachiocephalic and left subclavian arteries and addit ional narrowing at the origin of the left vertebral artery. Ectatic upper descending thoracic aorta 3 .2 cm. Mildly enlarged caliber to the main right and left pulmonary arteries measuring up to 2.6 cm may refl ect underlying pulmonary arterial hypertension. No thoracic lymphadenopathy by CT size criteria. Large cutaneous/subcutaneous cyst left paramedian posterior mid to lower chest wall measuring 4.2 cm wide, axial image 86. A second similar lesion measuring 1.9 cm wide at the midline posterior lower ch est level. Smooth pleural thickening at the posterior right lower lobe. Moderate emphysematous change. Some patc hy and groundglass density at the left greater than right lung bases, probably atelectasis. No pleura l effusion. Appearance of small omental fat-containing ventral midline epigastric abdominal wall hernias measurin g up to 2.7 cm wide. Otherwise, visualized upper abdomen shows dense opacity within the distended bilateral renal collecti ng systems. Probable cyst right kidney measuring 3.4 cm and left kidney measuring 2.1 cm. This should be confirmed with renal ultrasound. Bones: Mild multilevel degenerative disc disease. IMPRESSION: 1. Extensive three-vessel coronary artery calcifications. Ectatic ascending aorta 3.9 cm. Conventiona l arch vessel branching anatomy with some atherosclerotic narrowing at the origin of the brachiocepha lic artery, left subclavian artery, and left vertebral artery. 2. COPD with moderate emphysema and possible underlying pulmonary arterial hypertension. 3. Suspect chronic pleural scarring with associated thickening along the posterior right lower lobe. Some groundglass and patchy bibasilar densities could reflect atelectasis or an interstitial pneumoni tis such as DIP. 4. A couple cutaneous/subcutaneous cysts along the left and midline posterior back measuring 4.2 and 1.9 cm. Correlate with physical exam findings. Suspect sebaceous cysts.
[2023-11-07 17:14] LABS: ALT 19 U/L (4-49); AST 20 U/L (17-59); African American GFR (CKD) >90 (>60 ml/min/1.73 sqM); Albumin 3.5 g/dL (3.5-5.0); Alkaline Phosphatase 77 U/L (38-126); Anion Gap 5 mmol/L; Blood Urea Nitrogen 17 mg/dL (9-20); Calcium 8.7 mg/dL (8.4-10.2); Carbon Dioxide 23 mmol/L (22-30); Chloride 110 mmol/L (98-107); Glucose 106 mg/dL (74-99); Magnesium 1.7 mg/dL (1.6-2.3); Non-African American GFR(CKD) >90 (>60 ml/min/1.73 sqM); Potassium 3.9 mmol/L (3.5-5.1); Sodium 138 mmol/L (137-145); Total Bilirubin 0.5 mg/dL (0.2-1.3)
[2023-11-07] MEDS: MD COMMUNICATION TO PHARMACY 1 EACH MISC PO ONE ×3 (18:03→18:04)
[2023-11-07] MEDS: SODIUM CHLORIDE 0.9% 1,000 ML in EMPTY BAG 1 BAG IV SCH (18:03)
[2023-11-07] MEDS: SODIUM CHLORIDE 0.9% 1,000 ML IV SCH (18:09)
[2023-11-07 20:03] LABS: Glucose,Whole Blood 102 mg/dL (70-110)
[2023-11-07] MEDS ORDERED: lisinopriL 5 MG TAB PO SCH (21:00)
[2023-11-07] MEDS: METOPROLOL SUCCINATE (ER) 25 MG TAB.ER.24H PO SCH (21:04)
[2023-11-07] MEDS: TAMSULOSIN 0.4 MG CAP.ER.24H PO SCH (21:04)
[2023-11-07] MEDS: MUPIROCIN 2% OINT 22 GM TUBE NASAL SCH (21:33)
[2023-11-07] MEDS: buPROPion XL 150 MG TAB.ER.24H PO SCH (21:33)
[2023-11-08 03:33] LABS: Chol/HDL Ratio 3.01 Ratio; LDL Cholesterol,Calculated 56.4 mg/dL (0.0-131.0)
[2023-11-08 03:42] LABS: Hepatitis A Antibody IgM Nonreactive (Nonreactive); Hepatitis B Core IgM Nonreactive (Nonreactive); Hepatitis C IgG Antibody Nonreactive (Nonreactive)
[2023-11-08 03:43] LABS: Hepatitis B Surface Antigen Nonreactive (Nonreactive)
[2023-11-08 04:21] LABS: Glucose,Whole Blood 109 mg/dL (70-110)
[2023-11-08] MEDS ORDERED: CARDIOPLEGIC SOLN (K+ 16 MEQ/L 1,000 ML with SOD BICARB SYR 8.4% (1 MEQ/ML) 20 ML, LIDO... PERFUSION NR (05:00)
[2023-11-08] MEDS ORDERED: INSULIN REGULAR 100 UNIT in SODIUM CHLORIDE 0.9% 100 ML IV SCH (05:00)
[2023-11-08] MEDS ORDERED: NOREPINEPHRINE 4 MG in SODIUM CHLORIDE 0.9% 250 ML IV SCH (05:00)
[2023-11-08] MEDS: ATORVASTATIN 10 MG TAB PO ONE (06:12)
[2023-11-08] MEDS: ASPIRIN 325 MG TAB PO ONE (06:12)
[2023-11-08] MEDS: METOPROLOL TARTRATE 12.5 MG TAB PO ONE (06:12)
[2023-11-08 06:33] LABS: Glucose,Whole Blood 105 mg/dL (70-110)
--- NOTE | 2023-11-08 06:59 | XR ---
EXAMINATION TYPE: XR chest 2V DATE OF EXAM: 11/08/2023 COMPARISON: CT chest 11/07/2023 INDICATION: Open heart surgery presurgical clearance TECHNIQUE: Frontal and lateral views of the chest are obtained. FINDINGS: The heart size is normal. The pulmonary vasculature is normal. There is hyperinflation findings the diaphragms compatible with COPD. Mild infiltrative changes in th e right lung base. Correlate for atelectasis or pneumonia.. IMPRESSION: 1. Mild right lower lobe infiltrate. Correlate for atelectasis or pneumonia. 2. COPD
[2023-11-08] MEDS: PIOGLITAZONE 15 MG TAB PO SCH (08:21)
[2023-11-08] MEDS ORDERED: ATORVASTATIN 40 MG TAB PO SCH (09:00)
[2023-11-08] MEDS ORDERED: ASPIRIN 81 MG PO SCH (09:00)
--- NOTE | 2023-11-08 10:53 | P.PN ---
Subjective Progress Note Date: 11/08/23 This is a 68-year old male patient of Dr. Boston with past medical history diabetes, tobacco use and dependence 1 pack/day, hyperlipidemia, peripheral vascular disease status post aortobifemoral bypass, obstructive sleep apnea with home CPAP, diabetes mellitus type 2, history of prostate cancer s/p radiation, history of DVT in the right leg many years ago. Patient was recently in the office for preop clearance for left total hip arthroplasty. Patient underwent a stress test as part of the workup and was found to have a poor exercise tolerance with more than [address] segment depression. Patient had no previous obstructive CAD. Patient was advised to undergo cardiac catheterization which was performed yesterday. Cardiac catheterization revealed calcified left main, severe distal left main stenosis involving the ostium of the LAD and left circumflex, mild disease in the mid right, elevated LVEDP. Patient was advised for CABG and was evaluated by cardiothoracic surgery. Workup and surgery has been scheduled. Blood pressure 119/67, heart rate 53, pulse ox 94% on room air. Right wrist with no hematoma or bleeding. Chest x-ray: Mid right lower lobe infiltrate. Correlate for atelectasis or pneumonia. COPD. Carotid Doppler revealed no evidence of hemodynamically significant stenosis. Laboratory studies: Hemoglobin 15.6. Sodium 138, potassium 3.9, BUN 17 creatinine 0.59. Hemoglobin A1c 7.5. Cholesterol 119, triglycerides 115, LDL 56 and HDL 39. TSH 1.49. Hepatitis negative. Home cardiac medications: Aspirin 81 mg daily, Lipitor 10 mg at bedtime, metoprolol succinate 25 mg daily. Review Of Systems: At the time of my exam: CONSTITUTIONAL: Denies fever or chills. HEENT: Denies blurred vision, vision changes, or eye pain. Denies hemoptysis CARDIOVASCULAR: Denies chest pain. Denies orthopnea. Denies PND. Denies palpitations RESPIRATORY: Denies shortness of breath. GASTROINTESTINAL: Denies abdominal pain. Denies nausea or vomiting. HEMATOLOGIC: Denies bleeding disorders. GENITOURINARY: Denies any blood in urine. SKIN: Denies puritis. Denies rash. Physical examination: Gen: This is a 68-year-old male in no acute distress VS: reviewed HEENT: Head is atraumatic, normocephalic. Pupils equal, round. Sclerae is anicteric. NECK: Supple. No JVD. LUNGS: Clear to auscultation. No wheezes or rhonchi. No intercostal retractions. HEART: Regular rate and rhythm. 3/6 systolic murmur. ABDOMEN: Soft No tenderness. EXTREMITIES: No pedal edema. No calf tenderness. NEUROLOGICAL: Patient is awake, alert and oriented x3. Assessment: Coronary artery disease with left main disease Hypertension Hyperlipidemia Peripheral vascular disease with previous aortobifemoral bypass Obstructive sleep apnea on home CPAP Diabetes mellitus type 2 Prostate cancer in 2020 status post radiation Current tobacco use and dependence Plan: Continue patient's home cardiac medications Patient is scheduled for CABG today Tobacco cessation. Patient will be provided with the [employer] quit line information at discharge. Further recommendations to follow based upon clinical course Thank you kindly for this consultation. Nurse practitioner note has been reviewed, I agree with documented findings and plan of care. Patient was seen and examined. Objective - Vital Signs Vital signs: Vital Signs Temp 97.8 F 11/08/23 08:20 Pulse 53 L 11/08/23 08:20 Resp 18 11/08/23 08:20 BP 119/67 11/08/23 08:20 Pulse Ox 94 L 11/08/23 08:20 FiO2 Intake & Output 11/07/23 11/08/23 11/08/23 18:59 06:59 18:59 Intake Total 820 Output Total 200 Balance 620 Weight 104.3 kg 103.2 kg Intake: IV 400 Oral 420 Output: Urine 200 - Labs CBC & Chem 7: 11/07/23 16:23 11/07/23 16:23 Labs: Abnormal Lab Results - Last 24 Hours (Table) 11/07/23 11/07/23 11/07/23 Range/Units 10:57 16:23 16:23 MCV 104.1 H (80.0-100.0) fL Chloride 110 H (98-107) mmol/L Creatinine 0.59 L (0.66-1.25) mg/dL Glucose 106 H (74-99) mg/dL POC Glucose (mg/dL) 120 H (70-110) mg/dL Hemoglobin A1c (<=6.0) % Total Protein 6.0 L (6.3-8.2) g/dL HDL Cholesterol 39.60 L (40.00-60.00) mg/dL Crossmatch 11/07/23 11/07/23 Range/Units 16:23 16:23 MCV (80.0-100.0) fL Chloride (98-107) mmol/L Creatinine (0.66-1.25) mg/dL Glucose (74-99) mg/dL POC Glucose (mg/dL) (70-110) mg/dL Hemoglobin A1c 7.5 H (<=6.0) % Total Protein (6.3-8.2) g/dL HDL Cholesterol (40.00-60.00) mg/dL Crossmatch See Detail
[2023-11-08] MEDS: IV FLUID CONTINUATION 900 ML IV ONE (11:23)
[2023-11-08 11:51] LABS: Glucose,Whole Blood 91 mg/dL (70-110)
--- NOTE | 2023-11-08 12:04 | P.CNPUL ---
History of Present Illness Consult date: 11/08/23 Requesting physician: Radha Boston Reason for consult: dyspnea, COPD, other Chief complaint: Chest pain, coronary disease. History of present illness: Pulmonary consult dated November 08, 2023. 68-year-old male who was seen by cardiology, for chest discomfort. The patient has a history of diabetes, chronic tobacco use, hyperlipidemia, and peripheral vascular disease. He had a previous aortobifemoral bypass. The patient had a stress test, for preoperative clearance, and was noted to have ST-T wave changes. For that reason, the patient underwent cardiac catheterization, was found to have significant coronary disease. The patient is scheduled for bypass grafting, with Dr. Rosales today. The patient is a smoker, having smoked for 52 years. I did look at his lung function. His FEV1 is 1.80 L which is 53% of predicted. Hence, he has moderately severe COPD. He does have shortness of breath on exertion. Currently he is on room air. He is getting saline at 75 cc an hour. His cardiac catheterization, revealed a calcified left main coronary artery, severe distal left main stenosis involving the ostium of the LAD and left circumflex, and mild disease in the right coronary artery. Chest CT showed extensive three-vessel coronary artery calcification. There is also changes of COPD/emphysema. Most recent labs include a white count 7.1, hemoglobin 15.6, hematocrit 48.2, and a platelet count of 194,000. Sodium 138, potassium 3.9, chlorides 110, CO2 23, BUN 17, creatinine 0.59. Glucose is 91. Review of Systems REVIEW OF SYSTEMS: CONSTITUTIONAL: [Negative.] NEUROLOGIC: [ Negative.] HEENT: [ Negative.] CARDIAC: Chest pain. PULMONARY: Shortness of breath on exertion. GI: [Negative.] : [Negative.] RHEUMATOLOGIC: [ Negative.] IMMUNOLOGIC: [ Negative.] ENDOCRINE: [Negative. ] DERMATOLOGIC: [Negative.] Past Medical History Past Medical History: Coronary Artery Disease (CAD), Cancer, Diabetes Mellitus, Deep Vein Thrombosis (DVT), Hyperlipidemia, Hypertension, Sleep Apnea/CPAP/BIPAP, Thyroid Disorder Additional Past Medical History / Comment(s): Prostate CA-received radiation, 2017 dvt rt leg 30 yrs ago,uses cpap, thyroid 4-5 yrs Graves disease, peripheral arterial disease History of Any Multi-Drug Resistant Organisms: None Reported Additional Past Surgical History / Comment(s): Aortobifemoral bypass, right eye surgery due to Graves., Past Anesthesia/Blood Transfusion Reactions: No Reported Reaction Past Psychological History: No Psychological Hx Reported Smoking Status: Current every day smoker Past Alcohol Use History: None Reported Past Drug Use History: None Reported - Past Family History Mother Family Medical History: No Reported History Additional Family Medical History / Comment(s): "Bad legs." Medications and Allergies Home Medications Medication Instructions Recorded Confirmed Type Tamsulosin HCl [Flomax] 0.4 mg PO HS 04/04/22 11/01/23 History buPROPion HCL [buPROPion HCL Xl] 150 mg PO HS 04/04/22 11/01/23 History Atorvastatin [Lipitor] 10 mg PO HS 10/23/23 11/01/23 History Pioglitazone [Actos] 15 mg PO DAILY 10/23/23 11/07/23 History metFORMIN HCL 500 mg PO DAILY 10/23/23 11/07/23 History Aspirin 325 mg PO BID 11/01/23 11/07/23 History Metoprolol Succinate [Metoprolol 25 mg PO DAILY 11/01/23 11/01/23 History Succinate ER] Allergies Allergy/AdvReac Type Severity Reaction Status Date / Time No Known Allergies Allergy Verified 11/08/23 11:31 Physical Exam Osteopathic Statement: *. No significant issues noted on an osteopathic str uctural exam other than those noted in the History and Physical/Consult. Vitals: Vital Signs Temp Pulse Resp BP BP BP Pulse Ox 11/08/23 11:24 97.7 F 51 L 16 147/71 151/71 96 11/08/23 08:20 97.8 F 53 L 18 119/67 94 L 11/08/23 04:00 98.0 F 56 L 16 137/72 132/63 98 11/07/23 23:38 97.7 F 58 L 18 124/68 96 11/07/23 19:58 98.1 F 59 L 18 138/72 95 11/07/23 16:26 97.8 F 56 L 18 126/81 95 11/07/23 14:40 55 L 16 144/69 96 11/07/23 14:26 56 L 16 144/65 98 11/07/23 13:56 58 L 16 123/60 96 11/07/23 13:26 59 L 16 123/57 96 11/07/23 13:11 57 L 16 127/60 96 11/07/23 12:56 56 L 16 146/65 96 11/07/23 12:41 52 L 16 150/62 96 Intake and Output 11/07/23 11/08/23 11/08/23 22:59 06:59 14:59 Intake Total 180 Balance 180 Intake: Oral 180 Other: Weight 103.2 kg No acute distress, oriented 3. HEENT examination is grossly unremarkable. Mucous membranes are moist. No oral lesions. Neck supple. Full range of motion. No adenopathy thyromegaly or neck vein distention. Cardiovascular examination reveals regular rhythm rate. S1-S2 normal. No S3 or S4. No discernible murmur noted. Heart rate 51 bpm. Lungs reveal clear breath sounds. Breath sounds are equal bilaterally. No adventitious lung sounds including wheezes rhonchi or crackles. Room air saturation is 96%. Abdomen soft bowel sounds are heard. No masses or tenderness. Extremities are intact. No cyanosis clubbing or edema. Skin is without rash or lesion. Neurologic examination is brief but nonfocal. Results - Laboratory Findings CBC and BMP: 11/07/23 16:23 11/07/23 16:23 PT/INR, D-dimer PT 12.1 sec (10.0-12.5) 11/07/23 16:23 INR 1.1 (<1.2) 11/07/23 16:23 Abnormal lab findings: Abnormal Labs 11/07/23 11/07/23 11/07/23 10:57 16:23 16:23 MCV 104.1 H Chloride 110 H Creatinine 0.59 L Glucose 106 H POC Glucose (mg/dL) 120 H Hemoglobin A1c Total Protein 6.0 L HDL Cholesterol 39.60 L Crossmatch 11/07/23 11/07/23 16:23 16:23 MCV Chloride Creatinine Glucose POC Glucose (mg/dL) Hemoglobin A1c 7.5 H Total Protein HDL Cholesterol Crossmatch See Detail - Diagnostic Findings Chest x-ray: image reviewed CT scan - chest: image reviewed Assessment and Plan Assessment: Significant coronary artery disease, with anticipated bypass surgery, November 08, 2023. 52 years of tobacco use, 1 pack a day, with moderately severe COPD, and an FEV1 percent that is 53. FEV1 that is 1.80 L, which predicts a no/low increased operative risk for general anesthesia. History of diabetes mellitus. History of hypertension. History of hyperlipidemia. Peripheral vascular occlusive disease. Plan: Plan dated November 08, 2023. The patient is seen on the general medical floor. He is seen today in room 369. He is planning to undergo surgery, later today. I looked at his lung function. His FEV1 percent is 53. That would mean that he has moderately severe COPD. He smoked for 52 years. His FEV1 was 1.80 L, putting him in the no low increased operative risk category. Today, we explained our role in patients undergoing bypass. Initially, the plan is to get him off the ventilator soon as possible. Secondly, to see him every day, and make sure that he does not develop any pulmonary issues, after surgery. In that regard, we pointed out to him that incentive spirometry is very important. Time with Patient: Greater than 30
[2023-11-08] MEDS: MIDAZOLAM 2 MG/2 ML VIAL IVP ONE (12:45)
--- NOTE | 2023-11-08 13:58 | P.ANPRN ---
Procedure Note - Anesthesia - Invasive Line Right Central Line Time Out Performed: Yes Date of Procedure: 11/08/23 Time of Procedure: 13:10 Location of Patient: PreOp Preparation: Sterile Prep, Sterile Dressing Central Line Location: Internal Jugular Ultrasound Used: Yes Purpose - Visualization and Identification of Vasculature: Yes Needle Guage: 18 Image Stored and Saved: Yes Narrative: Invasive line placement per sterile protocol utilized. Seldinger technique w/ u/s guidance Right [place] More Time Out Performed: Yes Date of Procedure: 11/08/23 Time of Procedure: 13:40 Location of Patient: PreOp Preparation: Sterile Prep, Sterile Dressing [place] More Line Location: Internal Jugular Ultrasound Used: No Narrative: SWAN had ports flushed and balloon tested. Advanced to 20 cm and balloon inflated. Advanced until RV and then PA waveforms obtained. Balloon deflated and line secured @ 47 cm Right Arterial Line Time Out Performed: Yes Date of Procedure: 11/08/23 Time of Procedure: 13:50 Location of Patient: PreOp Preparation: Sterile Prep, Sterile Dressing Arterial Line Location: Radial Ultrasound Used: Yes Purpose - Visualization and Identification of Vasculature: Yes Needle Guage: 20 Image Stored and Saved: Yes Narrative: Invasive line placement per sterile protocol utilized. Seldinger technique w/ u/s guidance used
[2023-11-08] MEDS: HEPARIN SODIUM,PORCINE (1 ML) 5,000 UNIT in SODIUM CHLORIDE 0.9% 500 ML 500 ML IV ONE (15:44)
[2023-11-08] MEDS: PAPAVERINE 360 MG in SODIUM CHLORIDE 0.9% 90 ML IV ONE (15:44)
[2023-11-08] MEDS: ceFAZolin 1,000 MG in SODIUM CHLORIDE 0.9% IRRIGATIO 1,000 ML IRRIGATION ONE (15:45)
[2023-11-08] MEDS: DILTIAZEM 125 MG in SODIUM CHLORIDE 0.9% 100 ML IV SCH (15:45)
--- NOTE | 2023-11-08 18:05 | P.OP ---
Date of Procedure: 11/08/23 Preoperative Diagnosis: Coronary artery disease, unstable angina Postoperative Diagnosis: Same Procedure(s) Performed: Off-pump CABG x 2 with VERGARA to LAD and left radial artery to obtuse marginal, endovascular radial artery harvest, DALILA by anesthesia Implants: None Anesthesia: JOHANA Surgeon: Jeremias Rosales Information Assurance Manager #1: Doe Chatman Estimated Blood Loss (ml): 150 Pathology: none sent Condition: stable Disposition: ICU Indications for Procedure: 68-year-old male needing hip surgery. Had positive stress test. Had cardiac catheterization demonstrating 6 significant left main coronary artery stenosis with critical ostial LAD and circumflex stenoses. Urgent CABG was requested by Dr. Boston. Operative Findings: Left ventricle was markedly enlarged. Conduits were good. Targets were good. The left atrial appendage was severely adherent to the surrounding tissues and was not clipped. Description of Procedure: Patient was brought to the operating room and placed supine in the operating table. General anesthesia was induced. The anterior torso and bilateral lower extremities and left upper extremity were sterilely prepped and draped. Endovascular harvest of the left radial artery was performed by Michelle MCCARTY. Simultaneously the midline sternotomy was performed the left hemisternum was retracted upwards and the left internal mammary artery was h arvested on a vascularized pedicle, left intact on its origin from the subclavian and divided distally. VERGARA was an excellent conduit. Left pleural space was drained with a 32 Vietnamese chest tube. Standard sternal retractor was placed. The pericardium was opened in the midline and the heart was exposed with pericardial sutures. Patient was systemically heparinized. The VERGARA was tunneled into the pericardial space. Left atrial appendage was examined and felt to not be appropriate for clip. LAD was stabilized in its proximal third and opened. It was a 2.5 mm vessel. Blood flow was controlled with a 2 mm flow through. End-to-side anastomosis between the VERGARA and the LAD was performed with running 8-0 Prolene suture. On completion of the anastomosis, flow through was removed effective probing the proximal distal portion of the anastomosis. Suture was tied with good result and hemostasis. Inflow was opened. The ERIC pedicle was tacked surrounding epicardium with 6-0 silk sutures. VERGARA lay well with good length and the springer filled well with no evidence of stenosis. There was excellent flow in the VERGARA prior to anastomosis. Next the lateral wall of the heart was exposed. The major marginal branch was stabilized fairly proximally prior to its bifurcation. Was opened and blood flow controlled with a 2 mm flow through. Left radial artery was anastomosed in end-to-side fashion with running 7-0 Prolene suture. On completion of the anastomosis the flow through was removed effectively probing the proximal and distal portion of the anastomosis. Suture was tied with good result and hemostasis. Good backbleeding was noted in the radial artery controlled with a bulldog clamp. Heart was lowered in anatomic position. The radial artery was brought up to the ascending aorta. It was trimmed to appropriate length. Heartstring device was deployed in the mid ascending aorta to the left of midline and the proximal anastomosis constructed with running 5-0 Prolene suture. On completion of the proximal anastomosis, the heartstring device was removed. Suture was tied with good result and hemostasis. Inflow was opened. Anastomoses were checked and good hemostasis was noted throughout. Heparin was reversed with protamine. The chest was irrigated with antibiotic solution. The mediastinum was drained with a 36 Vietnamese chest tube. After assuring good hemostasis, sternum was closed with 8 sternal wires. Fascia was closed with 0 Ethibond. Subcutaneous and subcuticular layers were closed with layers of Vicryl suture. Patient was transferred to CCU in stable condition. Mr. Islas assistance as a PA was critical for the successful completion of the procedure due to his ability to assist with all phases of the cardiac surgical operation including anastomosis opening and closing. This was necessary for the complexity of the heart surgery.
[2023-11-08] MEDS ORDERED: AMIODARONE 360 MG in DEXTROSE 5% IN WATER 200 ML IV PRN (18:17)
[2023-11-08] MEDS ORDERED: METOCLOPRAMIDE 5 MG/ML 2 ML VIAL IVP PRN (18:17)
[2023-11-08] MEDS ORDERED: AMIODARONE 450 MG in DEXTROSE 5% IN WATER 250 ML IV PRN (18:17)
[2023-11-08] MEDS ORDERED: hydrALAZINE HCL 20 MG/ML 1 ML VIAL IVP PRN (18:17)
[2023-11-08] MEDS ORDERED: ALBUMIN HUMAN 5% 250 ML in EMPTY BAG 1 BAG IVPB PRN (18:17)
[2023-11-08] MEDS ORDERED: IPRATROPIUM-ALBUTEROL 3 ML NEB INHALATION PRN (18:17)
[2023-11-08] MEDS ORDERED: BENZOCAINE/MENTHOL LOZENG 1 EACH LOZENGE MUCOUS MEM PRN (18:17)
[2023-11-08] MEDS ORDERED: Potassium Replacement Protocol 1 EACH MISC MISCELLANE PRN (18:17)
[2023-11-08] MEDS ORDERED: DEXMEDETOMIDINE/0.9% NACL(PMX) 400 MCG in EMPTY BAG 1 BAG IV SCH (18:17)
[2023-11-08] MEDS ORDERED: Magnesium Replacement Protocol 1 EACH MISC MISCELLANE PRN (18:17)
[2023-11-08] MEDS ORDERED: ONDANSETRON 4 MG/2 ML VIAL IVP PRN (18:17)
[2023-11-08] MEDS ORDERED: DEXTROSE 5% IN WATER 100 ML with AMIODARONE 150 MG IV PRN (18:17)
[2023-11-08] MEDS ORDERED: DEXTROSE 50% SYRINGE 50 ML IVP PRN ×2 (18:17)
[2023-11-08 18:37] LABS: Glucose,Whole Blood 86 mg/dL (70-110)
[2023-11-08] MEDS: NITROGLYCERIN-D5W PMX 50 MG in DEXTROSE/WATER 1 250ML.BAG IV SCH (18:48)
[2023-11-08] MEDS: SODIUM CHLORIDE 0.9% 1,000 ML IV SCH (18:48)
[2023-11-08 18:50] LABS: Basophils % (A) 0 %; Eosinophils # (A) 0.1 k/uL (0-0.7); Eosinophils % (A) 1 %; HCT 39.2 % (39.0-53.0); HGB 12.8 gm/dL (13.0-17.5); Lymphocytes # (A) 1.1 k/uL (1.0-4.8); Lymphocytes % (A) 10 %; MCH 34.1 pg (25.0-35.0); MCHC 32.6 g/dL (31.0-37.0); MCV 104.3 fL (80.0-100.0); Macrocytosis Slight; Mean Platelet Volume 8.1; Monocytes # (A) 0.7 k/uL (0-1.0); Monocytes % (A) 7 %; Neutrophils # (A) 8.5 k/uL (1.3-7.7); Neutrophils % (A) 81 %; Platelet Count 123 k/uL (150-450); RBC 3.76 m/uL (4.30-5.90); RDW 13.4 % (11.5-15.5); WBC 10.4 k/uL (3.8-10.6)
[2023-11-08] MEDS: CLEVIDIPINE BUTYRATE 25 MG in EMPTY BAG 1 BAG IV SCH (18:50)
[2023-11-08 18:54] LABS: INR 1.3 (<1.2); Partial Thromboplastin Time 29.8 sec (22.0-30.0); Prothrombin Time 13.2 sec (10.0-12.5)
--- NOTE | 2023-11-08 18:54 | XR ---
EXAMINATION TYPE: XR chest 1V portable DATE OF EXAM: 11/08/2023 COMPARISON: 11/08/2023 INDICATION: Postop cardiac surgery TECHNIQUE: Single frontal view of the chest is obtained. FINDINGS: The heart size is upper limits of normal. The pulmonary vasculature is prominent. Bibasilar infiltrates are present. Correlate for volume overload and atelectasis. Endotracheal tube tip is 4.7 cm above sole. Nasogastric tube distal tip is not clearly identified. This can be traced at least as far as the mid thorax. Colon-More catheter is present with the tip in t he midline. Correlate with the waveforms. This could be within the right ventricle or proximal main p ulmonary artery. Left-sided chest tube is present. Mediastinal tube is present. No pneumothorax evide nt. IMPRESSION: 1. Bibasilar infiltrates with prominent pulmonary vascular markings. Correlate for pulmonary edema. 2. Multiple lines and catheters discussed above. 3. The endotracheal tube tip is not clearly identified on this exam. 4. Correlate with waveforms for the Colon-More catheter positioning. Tip position within the right annika tricle or proximal main pulmonary artery should be considered.
[2023-11-08 18:58] LABS: Ionized Calcium 4.4 mg/dL (4.5-5.3)
[2023-11-08 18:58] LABS: ABG Base Excess -3.1 mmol/L; ABG HCO3 24 mmol/L (21-25); ABG Oxygen Saturation 100.1 % (94-97); ABG PCO2 48 mmHg (35-45); ABG PO2 317 mmHg (83-108); ABG TCO2 25 mmol/L (19-24); Allen Test Performed? Yes
[2023-11-08 18:59] LABS: Glucose,Whole Blood 91 mg/dL (70-110)
[2023-11-08 19:07] LABS: ALT 12 U/L (4-49); AST 20 U/L (17-59); African American GFR (CKD) >90 (>60 ml/min/1.73 sqM); Albumin 2.9 g/dL (3.5-5.0); Alkaline Phosphatase 58 U/L (38-126); Anion Gap 5 mmol/L; Blood Urea Nitrogen 11 mg/dL (9-20); Calcium 7.6 mg/dL (8.4-10.2); Carbon Dioxide 21 mmol/L (22-30); Chloride 114 mmol/L (98-107); Glucose 84 mg/dL (74-99); Magnesium 1.7 mg/dL (1.6-2.3); Non-African American GFR(CKD) >90 (>60 ml/min/1.73 sqM); Potassium 4.2 mmol/L (3.5-5.1); Sodium 140 mmol/L (137-145); Total Bilirubin 0.5 mg/dL (0.2-1.3); Total Protein 4.8 g/dL (6.3-8.2)
[2023-11-08 19:28] LABS: Glucose,Whole Blood 96 mg/dL (70-110)
[2023-11-08] MEDS: ACETAMINOPHEN IV (For NPO) 1,000 MG in EMPTY BAG 1 BAG IVPB SCH (19:56)
[2023-11-08] MEDS: MAGNESIUM SULFATE-D5W PMX 1 GM in DEXTROSE/WATER 1 100ML.BAG IVPB ONE (20:16)
[2023-11-08 20:37] LABS: Basophils % (A) 0 %; Eosinophils # (A) 0.1 k/uL (0-0.7); Eosinophils % (A) 1 %; HCT 43.5 % (39.0-53.0); HGB 14.1 gm/dL (13.0-17.5); Hypochromasia Slight; Lymphocytes # (A) 1.6 k/uL (1.0-4.8); Lymphocytes % (A) 12 %; MCHC 32.4 g/dL (31.0-37.0); MCV 104.8 fL (80.0-100.0); Macrocytosis Slight; Mean Platelet Volume 8.5; Monocytes % (A) 7 %; Neutrophils # (A) 10.5 k/uL (1.3-7.7); Neutrophils % (A) 79 %; Platelet Count 150 k/uL (150-450); RBC 4.16 m/uL (4.30-5.90); RDW 13.5 % (11.5-15.5); WBC 13.3 k/uL (3.8-10.6)
[2023-11-08 20:40] LABS: Glucose,Whole Blood 100 mg/dL (70-110)
[2023-11-08] MEDS: IPRATROPIUM-ALBUTEROL 3 ML NEB INHALATION SCH (21:12)
[2023-11-08 21:19] LABS: ABG Base Excess -3.7 mmol/L; ABG HCO3 23 mmol/L (21-25); ABG Oxygen Saturation 98.7 % (94-97); ABG PCO2 47 mmHg (35-45); ABG PO2 121 mmHg (83-108); ABG TCO2 25 mmol/L (19-24); Allen Test Performed? Yes
[2023-11-08] MEDS: MUPIROCIN 2% OINT 22 GM TUBE NASAL SCH (21:56)
[2023-11-08] MEDS: SENNOSIDES-DOCUSATE SODIUM 1 EACH TAB PO SCH (21:58)
[2023-11-08 22:08] LABS: Glucose,Whole Blood 113 mg/dL (70-110)
--- NOTE | 2023-11-08 22:43 | P.EN ---
I came to see the patient, he was at surgery We will follow-up
[2023-11-08 22:50] LABS: Glucose,Whole Blood 110 mg/dL (70-110)
[2023-11-08 23:38] LABS: ABG Base Excess -2.5 mmol/L; ABG HCO3 23 mmol/L (21-25); ABG Oxygen Saturation 97.4 % (94-97); ABG PCO2 40 mmHg (35-45); ABG PH 7.37 (7.35-7.45); ABG PO2 90 mmHg (83-108); ABG TCO2 24 mmol/L (19-24); Allen Test Performed? Yes
[2023-11-08 23:47] LABS: Glucose,Whole Blood 117 mg/dL (70-110)
[2023-11-08 23:48] LABS: Basophils % (A) 0 %; Eosinophils # (A) 0.1 k/uL (0-0.7); Eosinophils % (A) 0 %; HCT 45.5 % (39.0-53.0); HGB 14.5 gm/dL (13.0-17.5); Lymphocytes # (A) 1.1 k/uL (1.0-4.8); Lymphocytes % (A) 8 %; MCH 33.2 pg (25.0-35.0); MCHC 31.9 g/dL (31.0-37.0); MCV 104.1 fL (80.0-100.0); Macrocytosis Slight; Mean Platelet Volume 7.3; Monocytes % (A) 7 %; Neutrophils # (A) 11.8 k/uL (1.3-7.7); Neutrophils % (A) 83 %; Platelet Count 147 k/uL (150-450); RBC 4.37 m/uL (4.30-5.90); RDW 13.4 % (11.5-15.5); WBC 14.2 k/uL (3.8-10.6)
[2023-11-09] MEDS: HEPARIN SODIUM,PORCINE 5,000 UNIT/ML 1 ML VIAL SQ SCH (01:00)
[2023-11-09 02:57] LABS: Glucose,Whole Blood 133 mg/dL (70-110)
[2023-11-09] MEDS: INSULIN REGULAR 100 UNIT in SODIUM CHLORIDE 0.9% 100 ML IV SCH (03:17)
[2023-11-09 04:56] LABS: Glucose,Whole Blood 111 mg/dL (70-110)
[2023-11-09 05:16] LABS: Basophils % (A) 0 %; Eosinophils % (A) 0 %; HCT 44.8 % (39.0-53.0); HGB 14.6 gm/dL (13.0-17.5); Lymphocytes # (A) 0.8 k/uL (1.0-4.8); Lymphocytes % (A) 7 %; MCH 33.7 pg (25.0-35.0); MCHC 32.6 g/dL (31.0-37.0); MCV 103.2 fL (80.0-100.0); Macrocytosis Slight; Mean Platelet Volume 7.8; Monocytes # (A) 0.7 k/uL (0-1.0); Monocytes % (A) 6 %; Neutrophils % (A) 86 %; Platelet Count 152 k/uL (150-450); RBC 4.34 m/uL (4.30-5.90); RDW 13.3 % (11.5-15.5); WBC 11.6 k/uL (3.8-10.6)
[2023-11-09 05:29] LABS: Ionized Calcium 4.6 mg/dL (4.5-5.3)
[2023-11-09 05:37] LABS: ALT 14 U/L (4-49); AST 24 U/L (17-59); African American GFR (CKD) >90 (>60 ml/min/1.73 sqM); Albumin 3.5 g/dL (3.5-5.0); Alkaline Phosphatase 67 U/L (38-126); Anion Gap 8 mmol/L; Blood Urea Nitrogen 10 mg/dL (9-20); Calcium 8.5 mg/dL (8.4-10.2); Carbon Dioxide 20 mmol/L (22-30); Chloride 107 mmol/L (98-107); Glucose 110 mg/dL (74-99); Magnesium 1.6 mg/dL (1.6-2.3); Non-African American GFR(CKD) >90 (>60 ml/min/1.73 sqM); Potassium 3.9 mmol/L (3.5-5.1); Sodium 135 mmol/L (137-145); Total Bilirubin 0.9 mg/dL (0.2-1.3); Total Protein 5.6 g/dL (6.3-8.2)
[2023-11-09] MEDS: POTASSIUM CHLORIDE ER 20 MEQ TAB.ER PO SCH (06:49)
[2023-11-09] MEDS: MAGNESIUM SULFATE-D5W PMX 1 GM in DEXTROSE/WATER 1 100ML.BAG IVPB SCH (06:50)
[2023-11-09 07:01] LABS: Glucose,Whole Blood 126 mg/dL (70-110)
[2023-11-09] MEDS: fentaNYL (PF) 50 MCG/ML 2 ML AMP IVP PRN (07:29)
[2023-11-09] MEDS: IPRATROPIUM-ALBUTEROL 3 ML NEB INHALATION SCH (07:34)
--- NOTE | 2023-11-09 07:51 | XR ---
EXAMINATION TYPE: XR chest 1V portable DATE OF EXAM: 11/09/2023 Comparison: 11/08/2023 Clinical History: 68-year-old male Post Operative Cardiac Surgery Findings: Right IJ Adams-More catheter tip at the main pulmonary outflow tract. Median sternotomy wires and post -CABG clips. Mediastinal drain and left-sided chest tube. Interval extubation and removal of NG tube. No appreciable pneumothorax. Heart remains mildly enlarged. Diffuse interstitial density and small e ffusions persist. Impression: Post-CABG changes with similar mild interstitial edema and small pleural effusions.
[2023-11-09] MEDS: KETOROLAC 15 MG/ML 1 ML VIAL IVP SCH (08:01)
[2023-11-09 08:10] LABS: Glucose,Whole Blood 126 mg/dL (70-110)
[2023-11-09] MEDS: PANTOPRAZOLE 40 MG/10 ML VIAL IVP SCH (08:18)
[2023-11-09] MEDS: ASPIRIN 325 MG TAB PO SCH (08:20)
[2023-11-09] MEDS: ATORVASTATIN 40 MG TAB PO SCH (08:20)
[2023-11-09] MEDS: METOPROLOL TARTRATE 12.5 MG TAB PO SCH (08:20)
[2023-11-09] MEDS: CLOPIDOGREL 75 MG TAB PO SCH (08:21)
[2023-11-09] MEDS ORDERED: bisacodyL 10 MG SUPP RECTAL PRN (09:00)
--- NOTE | 2023-11-09 09:53 | P.PN ---
Subjective Progress Note Date: 11/09/23 patient is 68-year-old male with follows in the office with Dr. Boston with multiple comorbid conditions. The patient was being cleared for preoperative clearance prior to hip surgery and was found to have abnormal stress testing. He underwent coronary angiogram which showed calcified left main, severe distal left main stenosis involving the ostium of the LAD and left circumflex as well as mild disease in the right RCA. Yesterday the patient underwent coronary bypass with Dr. Rosales. He received off-pump CABG with VERGARA to LAD and left radial artery to obtuse marginal Overnight the patient was weaned from all vasopressors and extubated. He is up sitting in the recliner chair. He does report some mild sternal discomfort as well as being fatigued this morning. GENERAL: Well-appearing, well-nourished and in no acute distress. NECK: Supple without JVD or thyromegaly. LUNGS: Breath sounds diminished to auscultation bilaterally. Respiration equal and unlabored. No wheezes, rales or rhonchi. HEART: Regular rate and rhythm without murmurs, rubs or gallops. S1 and S2 heard. EXTREMITIES: Normal range of motion, no edema. No clubbing or cyanosis. Peripheral pulses intact and strong. TELEMETRY: sinus rhythm overnight with no arrhythmias LABS: WBC 11.6, hemoglobin 14.6, hematocrit 44.8, platelet 152, sodium 135, potassium 3.9, BUN 10, creatinine 0.50, AST 24, ALT 14 IMPRESSION: Coronary artery disease with left main disease Status post CABG 2 Hypertension Hyperlipidemia Peripheral vascular disease with previous aortobifemoral bypass Obstructive sleep apnea on home CPAP Diabetes mellitus type 2 Current tobacco use and dependence PLAN: continue supportive treatment Aggressive pulmonary hygiene and early ambulation Further recommendations based upon clinical course I am dictating on behalf of Dr Wilman Noguera's history/physical and assessment/plan. Objective - Vital Signs Vital signs: Vital Signs Temp 99.5 F 11/09/23 08:00 Pulse 75 11/09/23 09:00 Resp 15 11/09/23 09:00 BP 110/60 11/09/23 03:00 Pulse Ox 97 11/09/23 09:00 FiO2 40 11/08/23 21:21 Intake & Output 11/08/23 11/09/23 11/09/23 18:59 06:59 18:59 Intake Total 54 874.209 177 Output Total 1200 3625 315 Balance -8106 -7030.791 -138 Weight 104.6 kg Intake: IV 54 760 177 CO/CI 170 Sodium Chloride 0.9% 1, 500 150 000 ml @ 20 mls/hr IV . Q24H [facility] Rx#:[id number] pressure bag 90 27 Intake, IV Titration 114.209 0 Amount Clevidipine Butyrate 25 53.667 mg In Empty Bag 1 bag @ 1 MG/HR 2 mls/hr IV .Q24H [facility] Rx#:[id number] Insulin Regular 100 unit 1.667 0 In Sodium Chloride 0.9% 100 ml @ Per Protocol IV .Q0M [facility] Rx#:[id number] propofoL 1,000 mg In 58.875 Empty Bag 1 bag @ Titrate IV .Q0M [facility] Rx#: [id number] Output: Chest Tube Drainage 590 140 Chest Tube Left 90 40 Mediastinal 500 100 Urine 500 3035 175 Estimated Blood Loss 700 Other: Voiding Method Indwelling Catheter ABP, PAP, CO, CI - Last Documented Arterial Blood Pressure 121/57 Pulmonary Artery Pressure 24 Cardiac Output 7.2 Cardiac Index 3.2 - Labs CBC & Chem 7: 11/09/23 05:00 11/09/23 05:00 Labs: Abnormal Lab Results - Last 24 Hours (Table) 11/07/23 11/08/23 11/08/23 Range/Units 16:23 18:35 18:35 WBC (3.8-10.6) k/uL RBC 3.76 L (4.30-5.90) m/uL Hgb 12.8 L (13.0-17.5) gm/dL MCV 104.3 H (80.0-100.0) fL Plt Count 123 L (150-450) k/uL Neutrophils # 8.5 H (1.3-7.7) k/uL Lymphocytes # (1.0-4.8) k/uL PT 13.2 H (10.0-12.5) sec INR 1.3 H (<1.2) ABG pH (7.35-7.45) ABG pCO2 (35-45) mmHg ABG pO2 (83-108) mmHg ABG Total CO2 (19-24) mmol/L ABG O2 Saturation (94-97) % Sodium (137-145) mmol/L Chloride (98-107) mmol/L Carbon Dioxide (22-30) mmol/L Creatinine (0.66-1.25) mg/dL Glucose (74-99) mg/dL POC Glucose (mg/dL) (70-110) mg/dL Calcium (8.4-10.2) mg/dL Ionized Calcium Ta (4.5-5.3) mg/dL Total Protein (6.3-8.2) g/dL Albumin (3.5-5.0) g/dL Crossmatch See Detail 11/08/23 11/08/23 11/08/23 Range/Units 18:35 18:53 20:30 WBC 13.3 H (3.8-10.6) k/uL RBC 4.16 L (4.30-5.90) m/uL Hgb (13.0-17.5) gm/dL MCV 104.8 H (80.0-100.0) fL Plt Count (150-450) k/uL Neutrophils # 10.5 H (1.3-7.7) k/uL Lymphocytes # (1.0-4.8) k/uL PT (10.0-12.5) sec INR (<1.2) ABG pH 7.30 L (7.35-7.45) ABG pCO2 48 H (35-45) mmHg ABG pO2 317 H (83-108) mmHg ABG Total CO2 25 H (19-24) mmol/L ABG O2 Saturation 100.1 H (94-97) % Sodium (137-145) mmol/L Chloride 114 H (98-107) mmol/L Carbon Dioxide 21 L (22-30) mmol/L Creatinine 0.52 L (0.66-1.25) mg/dL Glucose (74-99) mg/dL POC Glucose (mg/dL) (70-110) mg/dL Calcium 7.6 L (8.4-10.2) mg/dL Ionized Calcium Ta 4.4 L (4.5-5.3) mg/dL Total Protein 4.8 L (6.3-8.2) g/dL Albumin 2.9 L (3.5-5.0) g/dL Crossmatch 11/08/23 11/08/23 11/08/23 Range/Units 21:14 22:06 23:34 WBC (3.8-10.6) k/uL RBC (4.30-5.90) m/uL Hgb (13.0-17.5) gm/dL MCV (80.0-100.0) fL Plt Count (150-450) k/uL Neutrophils # (1.3-7.7) k/uL Lymphocytes # (1.0-4.8) k/uL PT (10.0-12.5) sec INR (<1.2) ABG pH 7.30 L (7.35-7.45) ABG pCO2 47 H (35-45) mmHg ABG pO2 121 H (83-108) mmHg ABG Total CO2 25 H (19-24) mmol/L ABG O2 Saturation 98.7 H 97.4 H (94-97) % Sodium (137-145) mmol/L Chloride (98-107) mmol/L Carbon Dioxide (22-30) mmol/L Creatinine (0.66-1.25) mg/dL Glucose (74-99) mg/dL POC Glucose (mg/dL) 113 H (70-110) mg/dL Calcium (8.4-10.2) mg/dL Ionized Calcium Ta (4.5-5.3) mg/dL Total Protein (6.3-8.2) g/dL Albumin (3.5-5.0) g/dL Crossmatch 11/08/23 11/08/23 11/09/23 Range/Units 23:35 23:36 02:55 WBC 14.2 H (3.8-10.6) k/uL RBC (4.30-5.90) m/uL Hgb (13.0-17.5) gm/dL MCV 104.1 H (80.0-100.0) fL Plt Count 147 L (150-450) k/uL Neutrophils # 11.8 H (1.3-7.7) k/uL Lymphocytes # (1.0-4.8) k/uL PT (10.0-12.5) sec INR (<1.2) ABG pH (7.35-7.45) ABG pCO2 (35-45) mmHg ABG pO2 (83-108) mmHg ABG Total CO2 (19-24) mmol/L ABG O2 Saturation (94-97) % Sodium (137-145) mmol/L Chloride (98-107) mmol/L Carbon Dioxide (22-30) mmol/L Creatinine (0.66-1.25) mg/dL Glucose (74-99) mg/dL POC Glucose (mg/dL) 117 H 133 H (70-110) mg/dL Calcium (8.4-10.2) mg/dL Ionized Calcium Ta (4.5-5.3) mg/dL Total Protein (6.3-8.2) g/dL Albumin (3.5-5.0) g/dL Crossmatch 11/09/23 11/09/23 11/09/23 Range/Units 04:55 05:00 05:00 WBC 11.6 H (3.8-10.6) k/uL RBC (4.30-5.90) m/uL Hgb (13.0-17.5) gm/dL MCV 103.2 H (80.0-100.0) fL Plt Count (150-450) k/uL Neutrophils # 10.0 H (1.3-7.7) k/uL Lymphocytes # 0.8 L (1.0-4.8) k/uL PT (10.0-12.5) sec INR (<1.2) ABG pH (7.35-7.45) ABG pCO2 (35-45) mmHg ABG pO2 (83-108) mmHg ABG Total CO2 (19-24) mmol/L ABG O2 Saturation (94-97) % Sodium 135 L (137-145) mmol/L Chloride (98-107) mmol/L Carbon Dioxide 20 L (22-30) mmol/L Creatinine 0.50 L (0.66-1.25) mg/dL Glucose 110 H (74-99) mg/dL POC Glucose (mg/dL) 111 H (70-110) mg/dL Calcium (8.4-10.2) mg/dL Ionized Calcium Ta (4.5-5.3) mg/dL Total Protein 5.6 L (6.3-8.2) g/dL Albumin (3.5-5.0) g/dL Crossmatch 11/09/23 11/09/23 Range/Units 07:00 08:08 WBC (3.8-10.6) k/uL RBC (4.30-5.90) m/uL Hgb (13.0-17.5) gm/dL MCV (80.0-100.0) fL Plt Count (150-450) k/uL Neutrophils # (1.3-7.7) k/uL Lymphocytes # (1.0-4.8) k/uL PT (10.0-12.5) sec INR (<1.2) ABG pH (7.35-7.45) ABG pCO2 (35-45) mmHg ABG pO2 (83-108) mmHg ABG Total CO2 (19-24) mmol/L ABG O2 Saturation (94-97) % Sodium (137-145) mmol/L Chloride (98-107) mmol/L Carbon Dioxide (22-30) mmol/L Creatinine (0.66-1.25) mg/dL Glucose (74-99) mg/dL POC Glucose (mg/dL) 126 H 126 H (70-110) mg/dL Calcium (8.4-10.2) mg/dL Ionized Calcium Ta (4.5-5.3) mg/dL Total Protein (6.3-8.2) g/dL Albumin (3.5-5.0) g/dL Crossmatch
[2023-11-09 10:12] LABS: Glucose,Whole Blood 126 mg/dL (70-110)
--- NOTE | 2023-11-09 10:41 | P.PN ---
Subjective Progress Note Date: 11/09/23 Principal diagnosis: Coronary artery disease with left main disease, unstable angina. History of hypertension, hyperlipidemia, peripheral arterial disease with previous aorto bifemoral bypass, obstructive sleep apnea with home CPAP use, type 2 diabetes, prostate cancer in 2020 status post radiation, current tobacco dependence, arthritis, previous history of COVID POD #1 off-pump CABG x 2 with VERGARA to LAD and left radial artery to obtuse marginal, endovascular radial artery harvest, DALILA by anesthesia The patient was seen and examined this morning sitting up in a recliner in the intensive care unit in no acute distress. He was successfully extubated last night at 23:45. Remains in sinus rhythm, hemodynamically stable on no inotropes or pressors. He does complain of uncontrolled post surgical pain, medications added with better relief. Denies shortness of breath. Currently on 4 L nasal cannula with oxygen saturation in the high 90s, able to achieve 1000 mL on his incentive spirometry. Right internal jugular [place]/Cordis, right radial arterial line, mediastinal/left pleural chest tubes all remaining. No other new concerns. Objective - Vital Signs Vital signs: Vital Signs Temp 99.5 F 11/09/23 08:00 Pulse 75 11/09/23 09:00 Resp 15 11/09/23 09:00 BP 110/60 11/09/23 03:00 Pulse Ox 97 11/09/23 09:00 FiO2 40 11/08/23 21:21 Intake & Output 11/08/23 11/09/23 11/09/23 18:59 06:59 18:59 Intake Total 54 874.209 177 Output Total 1200 3625 315 Balance -6226 -2350.791 -138 Weight 104.6 kg Intake: IV 54 760 177 CO/CI 170 Sodium Chloride 0.9% 1, 500 150 000 ml @ 20 mls/hr IV . Q24H [facility] Rx#:[id number] pressure bag 90 27 Intake, IV Titration 114.209 0 Amount Clevidipine Butyrate 25 53.667 mg In Empty Bag 1 bag @ 1 MG/HR 2 mls/hr IV .Q24H [facility] Rx#:[id number] Insulin Regular 100 unit 1.667 0 In Sodium Chloride 0.9% 100 ml @ Per Protocol IV .Q0M [facility] Rx#:[id number] propofoL 1,000 mg In 58.875 Empty Bag 1 bag @ Titrate IV .Q0M [facility] Rx#: [id number] Output: Chest Tube Drainage 590 140 Chest Tube Left 90 40 Mediastinal 500 100 Urine 500 3035 175 Estimated Blood Loss 700 Other: Voiding Method Indwelling Catheter ABP, PAP, CO, CI - Last Documented Arterial Blood Pressure 121/57 Pulmonary Artery Pressure 24/7 Cardiac Output 7.2 Cardiac Index 3.2 - Exam CONSTITUTIONAL: Appears mostly comfortable, cooperative, no acute distress RESPIRATORY: Lungs sounds diminished bilaterally. Respirations even, nonlabored. Currently on 4 L nasal cannula with oxygen saturation 99%. Able to achieve 1000 mL on incentive spirometry. Strong cough. CARDIOVASCULAR: S1, S2 present. Regular rate and rhythm, sinus rhythm on telemetry. Sternum stable. Palpable peripheral pulses bilaterally. No edema present. No calf pain or tenderness noted. Heart hugger in place with patient demonstrating appropriate use. Antiembolism stockings, SCDs present. GASTROINTESTINAL: Abdomen soft, nontender, nondistended. Hypoactive bowel sounds present 4 quadrants. Tolerating minimal clear liquids. Denies flatus GENITOURINARY: Alvarenga present draining clear, yellow urine. Output overnight 125-350 mL per hour INTEGUMENTARY: Skin is warm and dry with evidence of good perfusion. Anterior chest incision well approximated and covered with dry intact dressing. Left radial artery harvest site well approximated without redness, NOLA drain present with minimal drainage NEUROLOGIC: Cranial nerves II through XII intact MUSKULOSKELETAL: Able to move all extremities, strength equal bilaterally, gait normal PSYCHIATRIC: Alert and oriented to person place and time, appropriate affect, intact judgment and insight INVASIVE LINES AND TUBES: Mediastinal/left pleural chest tubes present and connected to wall suction, no air leaks present. Mediastinal tube with 250 mL serosanguineous drainage overnight, 700 mL since surgery. Left pleural chest tube with 30 mL serosanguineous drainage overnight, 140 mL since surgery. Right internal jugular [place]/Cordis, right radial arterial line present. Last CO/CI 7.2/3.2, PA 26/15, CVP 3. - Allied health notes Allied health notes reviewed: nursing - Labs CBC & Chem 7: 11/09/23 05:00 11/09/23 05:00 Labs: Abnormal Lab Results - Last 24 Hours (Table) 11/07/23 11/08/23 11/08/23 Range/Units 16:23 18:35 18:35 WBC (3.8-10.6) k/uL RBC 3.76 L (4.30-5.90) m/uL Hgb 12.8 L (13.0-17.5) gm/dL MCV 104.3 H (80.0-100.0) fL Plt Count 123 L (150-450) k/uL Neutrophils # 8.5 H (1.3-7.7) k/uL Lymphocytes # (1.0-4.8) k/uL PT 13.2 H (10.0-12.5) sec INR 1.3 H (<1.2) ABG pH (7.35-7.45) ABG pCO2 (35-45) mmHg ABG pO2 (83-108) mmHg ABG Total CO2 (19-24) mmol/L ABG O2 Saturation (94-97) % Sodium (137-145) mmol/L Chloride (98-107) mmol/L Carbon Dioxide (22-30) mmol/L Creatinine (0.66-1.25) mg/dL Glucose (74-99) mg/dL POC Glucose (mg/dL) (70-110) mg/dL Calcium (8.4-10.2) mg/dL Ionized Calcium Ta (4.5-5.3) mg/dL Total Protein (6.3-8.2) g/dL Albumin (3.5-5.0) g/dL Crossmatch See Detail 11/08/23 11/08/23 11/08/23 Range/Units 18:35 18:53 20:30 WBC 13.3 H (3.8-10.6) k/uL RBC 4.16 L (4.30-5.90) m/uL Hgb (13.0-17.5) gm/dL MCV 104.8 H (80.0-100.0) fL Plt Count (150-450) k/uL Neutrophils # 10.5 H (1.3-7.7) k/uL Lymphocytes # (1.0-4.8) k/uL PT (10.0-12.5) sec INR (<1.2) ABG pH 7.30 L (7.35-7.45) ABG pCO2 48 H (35-45) mmHg ABG pO2 317 H (83-108) mmHg ABG Total CO2 25 H (19-24) mmol/L ABG O2 Saturation 100.1 H (94-97) % Sodium (137-145) mmol/L Chloride 114 H (98-107) mmol/L Carbon Dioxide 21 L (22-30) mmol/L Creatinine 0.52 L (0.66-1.25) mg/dL Glucose (74-99) mg/dL POC Glucose (mg/dL) (70-110) mg/dL Calcium 7.6 L (8.4-10.2) mg/dL Ionized Calcium Ta 4.4 L (4.5-5.3) mg/dL Total Protein 4.8 L (6.3-8.2) g/dL Albumin 2.9 L (3.5-5.0) g/dL Crossmatch 11/08/23 11/08/23 11/08/23 Range/Units 21:14 22:06 23:34 WBC (3.8-10.6) k/uL RBC (4.30-5.90) m/uL Hgb (13.0-17.5) gm/dL MCV (80.0-100.0) fL Plt Count (150-450) k/uL Neutrophils # (1.3-7.7) k/uL Lymphocytes # (1.0-4.8) k/uL PT (10.0-12.5) sec INR (<1.2) ABG pH 7.30 L (7.35-7.45) ABG pCO2 47 H (35-45) mmHg ABG pO2 121 H (83-108) mmHg ABG Total CO2 25 H (19-24) mmol/L ABG O2 Saturation 98.7 H 97.4 H (94-97) % Sodium (137-145) mmol/L Chloride (98-107) mmol/L Carbon Dioxide (22-30) mmol/L Creatinine (0.66-1.25) mg/dL Glucose (74-99) mg/dL POC Glucose (mg/dL) 113 H (70-110) mg/dL Calcium (8.4-10.2) mg/dL Ionized Calcium Ta (4.5-5.3) mg/dL Total Protein (6.3-8.2) g/dL Albumin (3.5-5.0) g/dL Crossmatch 11/08/23 11/08/23 11/09/23 Range/Units 23:35 23:36 02:55 WBC 14.2 H (3.8-10.6) k/uL RBC (4.30-5.90) m/uL Hgb (13.0-17.5) gm/dL MCV 104.1 H (80.0-100.0) fL Plt Count 147 L (150-450) k/uL Neutrophils # 11.8 H (1.3-7.7) k/uL Lymphocytes # (1.0-4.8) k/uL PT (10.0-12.5) sec INR (<1.2) ABG pH (7.35-7.45) ABG pCO2 (35-45) mmHg ABG pO2 (83-108) mmHg ABG Total CO2 (19-24) mmol/L ABG O2 Saturation (94-97) % Sodium (137-145) mmol/L Chloride (98-107) mmol/L Carbon Dioxide (22-30) mmol/L Creatinine (0.66-1.25) mg/dL Glucose (74-99) mg/dL POC Glucose (mg/dL) 117 H 133 H (70-110) mg/dL Calcium (8.4-10.2) mg/dL Ionized Calcium Ta (4.5-5.3) mg/dL Total Protein (6.3-8.2) g/dL Albumin (3.5-5.0) g/dL Crossmatch 11/09/23 11/09/23 11/09/23 Range/Units 04:55 05:00 05:00 WBC 11.6 H (3.8-10.6) k/uL RBC (4.30-5.90) m/uL Hgb (13.0-17.5) gm/dL MCV 103.2 H (80.0-100.0) fL Plt Count (150-450) k/uL Neutrophils # 10.0 H (1.3-7.7) k/uL Lymphocytes # 0.8 L (1.0-4.8) k/uL PT (10.0-12.5) sec INR (<1.2) ABG pH (7.35-7.45) ABG pCO2 (35-45) mmHg ABG pO2 (83-108) mmHg ABG Total CO2 (19-24) mmol/L ABG O2 Saturation (94-97) % Sodium 135 L (137-145) mmol/L Chloride (98-107) mmol/L Carbon Dioxide 20 L (22-30) mmol/L Creatinine 0.50 L (0.66-1.25) mg/dL Glucose 110 H (74-99) mg/dL POC Glucose (mg/dL) 111 H (70-110) mg/dL Calcium (8.4-10.2) mg/dL Ionized Calcium Ta (4.5-5.3) mg/dL Total Protein 5.6 L (6.3-8.2) g/dL Albumin (3.5-5.0) g/dL Crossmatch 11/09/23 11/09/23 11/09/23 Range/Units 07:00 08:08 10:10 WBC (3.8-10.6) k/uL RBC (4.30-5.90) m/uL Hgb (13.0-17.5) gm/dL MCV (80.0-100.0) fL Plt Count (150-450) k/uL Neutrophils # (1.3-7.7) k/uL Lymphocytes # (1.0-4.8) k/uL PT (10.0-12.5) sec INR (<1.2) ABG pH (7.35-7.45) ABG pCO2 (35-45) mmHg ABG pO2 (83-108) mmHg ABG Total CO2 (19-24) mmol/L ABG O2 Saturation (94-97) % Sodium (137-145) mmol/L Chloride (98-107) mmol/L Carbon Dioxide (22-30) mmol/L Creatinine (0.66-1.25) mg/dL Glucose (74-99) mg/dL POC Glucose (mg/dL) 126 H 126 H 126 H (70-110) mg/dL Calcium (8.4-10.2) mg/dL Ionized Calcium Ta (4.5-5.3) mg/dL Total Protein (6.3-8.2) g/dL Albumin (3.5-5.0) g/dL Crossmatch - Imaging and Cardiology Chest x-ray: report reviewed, image reviewed Assessment and Plan Assessment: Coronary artery disease with left main disease, unstable angina, status post 2V off pump CABG Hypertension Hyperlipidemia, Treated, cholesterol 119, LDL 56 Peripheral arterial disease with previous aorto bifemoral bypass Obstructive sleep apnea with home CPAP use Type 2 diabetes, Preoperative hemoglobin A1c 7.5% Prostate cancer in 2020 status post radiation, currently on flomax outpatient Current tobacco dependence Moderate COPD, preoperative FEV1 53% of predicted Arthritis Previous history of COVID Plan: Continue to maximize medical therapy with aspirin, statin, Plavix, beta shelly. Will increase beta shelly therapy as tolerated Will start low-dose oral calcium channel shelly for radial artery spasm prophylaxis, hold parameters placed Wean oxygen as tolerated, encourage incentive spirometry use 10 times every hour while awake, bronchodilators per pulmonology Increase activity, ambulate as tolerated. PT/OT/cardiac rehab consulted Will monitor daily labs and x-rays, electrolyte replacement per protocol GI/DVT prophylaxis Insulin management per internal medicine, patient should remain on continuous IV insulin for 48 hours then may transition to subcutaneous per protocol Pain control per current medication regimen, medications added for better pain control Discontinue [place], connect Cordis to continuous CVP monitoring Continue mediastinal and left pleural chest tubes for another 24 hours, monitor output Continue Alvarenga catheter for another 24 hours, continue to record strict accurate intake and output Home dose of Flomax ordered Daily weights Smoking cessation counseling education provided, patient strongly encouraged com plete smoking cessation. Will be provided with 1 800 quit now helpline upon discharge More recommendations to follow
[2023-11-09 11:48] LABS: Glucose,Whole Blood 124 mg/dL (70-110)
--- NOTE | 2023-11-09 11:57 | P.PN ---
Subjective Progress Note Date: 11/09/23 Principal diagnosis: Coronary artery disease. Pulmonary consult dated November 08, 2023. 68-year-old male who was seen by cardiology, for chest discomfort. The patient has a history of diabetes, chronic tobacco use, hyperlipidemia, and peripheral vascular disease. He had a previous aortobifemoral bypass. The patient had a stress test, for preoperative clearance, and was noted to have ST-T wave changes. For that reason, the patient underwent cardiac catheterization, was found to have significant coronary disease. The patient is scheduled for bypass grafting, with Dr. Rosales today. The patient is a smoker, having smoked for 52 years. I did look at his lung function. His FEV1 is 1.80 L which is 53% of predicted. Hence, he has moderately severe COPD. He does have shortness of breath on exertion. Currently he is on room air. He is getting saline at 75 cc an hour. His cardiac catheterization, revealed a calcified left main coronary artery, severe distal left main stenosis involving the ostium of the LAD and left circumflex, and mild disease in the right coronary artery. Chest CT showed extensive three-vessel coronary artery calcification. There is also changes of COPD/emphysema. Most recent labs include a white count 7.1, hemoglobin 15.6, hematocrit 48.2, and a platelet count of 194,000. Sodium 138, potassium 3.9, chlorides 110, CO2 23, BUN 17, creatinine 0.59. Glucose is 91. Progress note dated 11/09/2023. 68-year-old male postop day #1, status post two-vessel bypass surgery. Currently, the patient is seen in room 267. He appears to be doing relatively well. He is currently on 4 L of oxygen. Is getting saline at 40 mL an hour, insulin drip at 0.5 units an hour.Current labs include a white count 11.6, he will 14.6, hematocrit 44.8, and a platelet count of 152,000. Sodium 135, potassium 3.9, chloride 107, bicarbonate 20, BUN 10, creatinine 0.5. The rest of the comprehensive metabolic profile looks good.Chest x-ray shows bibasilar atelectasis, small pleural effusions, and some mild interstitial edema. Objective - Vital Signs Vital signs: Vital Signs Temp 99.5 F 11/09/23 08:00 Pulse 73 11/09/23 11:17 Resp 19 11/09/23 10:30 BP 110/60 11/09/23 03:00 Pulse Ox 97 11/09/23 10:30 FiO2 40 11/08/23 21:21 Intake & Output 11/08/23 11/09/23 11/09/23 18:59 06:59 18:59 Intake Total 54 874.209 226 Output Total 1200 3625 360 Balance -1146 -6550.791 -134 Weight 104.6 kg 104.6 kg Intake: IV 54 760 226 CO/CI 170 Sodium Chloride 0.9% 1, 500 190 000 ml @ 20 mls/hr IV . Q24H [facility] Rx#:[id number] pressure bag 90 36 Intake, IV Titration 114.209 0 Amount Clevidipine Butyrate 25 53.667 mg In Empty Bag 1 bag @ 1 MG/HR 2 mls/hr IV .Q24H [facility] Rx#:[id number] Insulin Regular 100 unit 1.667 0 In Sodium Chloride 0.9% 100 ml @ Per Protocol IV .Q0M [facility] Rx#:[id number] propofoL 1,000 mg In 58.875 Empty Bag 1 bag @ Titrate IV .Q0M [facility] Rx#: [id number] Output: Chest Tube Drainage 590 150 Chest Tube Left 90 40 Mediastinal 500 110 Urine 500 3035 210 Estimated Blood Loss 700 Other: Voiding Method Indwelling Catheter ABP, PAP, CO, CI - Last Documented Arterial Blood Pressure 97/38 Pulmonary Artery Pressure 21/8 Cardiac Output 7.2 Cardiac Index 3.2 - Exam No acute distress, oriented 3.Currently on 4 L of oxygen. HEENT examination is grossly unremarkable. Mucous membranes are moist. No oral lesions. Neck supple. Full range of motion. No adenopathy thyromegaly or neck vein distention. Cardiovascular examination reveals regular rhythm rate. S1-S2 normal. No S3 or S4. No discernible murmur noted. Lungs reveal scattered bilateral rhonchi. No wheezes or crackles. Breath sounds equal bilaterally. Abdomen soft bowel sounds are heard. No masses or tenderness. Extremities are intact. No cyanosis clubbing or edema. Skin is without rash or lesion. Neurologic examination is brief but nonfocal. - Labs CBC & Chem 7: 11/09/23 05:00 11/09/23 05:00 Labs: Abnormal Lab Results - Last 24 Hours (Table) 11/07/23 11/08/23 11/08/23 Range/Units 16:23 18:35 18:35 WBC (3.8-10.6) k/uL RBC 3.76 L (4.30-5.90) m/uL Hgb 12.8 L (13.0-17.5) gm/dL MCV 104.3 H (80.0-100.0) fL Plt Count 123 L (150-450) k/uL Neutrophils # 8.5 H (1.3-7.7) k/uL Lymphocytes # (1.0-4.8) k/uL PT 13.2 H (10.0-12.5) sec INR 1.3 H (<1.2) ABG pH (7.35-7.45) ABG pCO2 (35-45) mmHg ABG pO2 (83-108) mmHg ABG Total CO2 (19-24) mmol/L ABG O2 Saturation (94-97) % Sodium (137-145) mmol/L Chloride (98-107) mmol/L Carbon Dioxide (22-30) mmol/L Creatinine (0.66-1.25) mg/dL Glucose (74-99) mg/dL POC Glucose (mg/dL) (70-110) mg/dL Calcium (8.4-10.2) mg/dL Ionized Calcium Ta (4.5-5.3) mg/dL Total Protein (6.3-8.2) g/dL Albumin (3.5-5.0) g/dL Crossmatch See Detail 11/08/23 11/08/23 11/08/23 Range/Units 18:35 18:53 20:30 WBC 13.3 H (3.8-10.6) k/uL RBC 4.16 L (4.30-5.90) m/uL Hgb (13.0-17.5) gm/dL MCV 104.8 H (80.0-100.0) fL Plt Count (150-450) k/uL Neutrophils # 10.5 H (1.3-7.7) k/uL Lymphocytes # (1.0-4.8) k/uL PT (10.0-12.5) sec INR (<1.2) ABG pH 7.30 L (7.35-7.45) ABG pCO2 48 H (35-45) mmHg ABG pO2 317 H (83-108) mmHg ABG Total CO2 25 H (19-24) mmol/L ABG O2 Saturation 100.1 H (94-97) % Sodium (137-145) mmol/L Chloride 114 H (98-107) mmol/L Carbon Dioxide 21 L (22-30) mmol/L Creatinine 0.52 L (0.66-1.25) mg/dL Glucose (74-99) mg/dL POC Glucose (mg/dL) (70-110) mg/dL Calcium 7.6 L (8.4-10.2) mg/dL Ionized Calcium Ta 4.4 L (4.5-5.3) mg/dL Total Protein 4.8 L (6.3-8.2) g/dL Albumin 2.9 L (3.5-5.0) g/dL Crossmatch 11/08/23 11/08/23 11/08/23 Range/Units 21:14 22:06 23:34 WBC (3.8-10.6) k/uL RBC (4.30-5.90) m/uL Hgb (13.0-17.5) gm/dL MCV (80.0-100.0) fL Plt Count (150-450) k/uL Neutrophils # (1.3-7.7) k/uL Lymphocytes # (1.0-4.8) k/uL PT (10.0-12.5) sec INR (<1.2) ABG pH 7.30 L (7.35-7.45) ABG pCO2 47 H (35-45) mmHg ABG pO2 121 H (83-108) mmHg ABG Total CO2 25 H (19-24) mmol/L ABG O2 Saturation 98.7 H 97.4 H (94-97) % Sodium (137-145) mmol/L Chloride (98-107) mmol/L Carbon Dioxide (22-30) mmol/L Creatinine (0.66-1.25) mg/dL Glucose (74-99) mg/dL POC Glucose (mg/dL) 113 H (70-110) mg/dL Calcium (8.4-10.2) mg/dL Ionized Calcium Ta (4.5-5.3) mg/dL Total Protein (6.3-8.2) g/dL Albumin (3.5-5.0) g/dL Crossmatch 11/08/23 11/08/23 11/09/23 Range/Units 23:35 23:36 02:55 WBC 14.2 H (3.8-10.6) k/uL RBC (4.30-5.90) m/uL Hgb (13.0-17.5) gm/dL MCV 104.1 H (80.0-100.0) fL Plt Count 147 L (150-450) k/uL Neutrophils # 11.8 H (1.3-7.7) k/uL Lymphocytes # (1.0-4.8) k/uL PT (10.0-12.5) sec INR (<1.2) ABG pH (7.35-7.45) ABG pCO2 (35-45) mmHg ABG pO2 (83-108) mmHg ABG Total CO2 (19-24) mmol/L ABG O2 Saturation (94-97) % Sodium (137-145) mmol/L Chloride (98-107) mmol/L Carbon Dioxide (22-30) mmol/L Creatinine (0.66-1.25) mg/dL Glucose (74-99) mg/dL POC Glucose (mg/dL) 117 H 133 H (70-110) mg/dL Calcium (8.4-10.2) mg/dL Ionized Calcium Ta (4.5-5.3) mg/dL Total Protein (6.3-8.2) g/dL Albumin (3.5-5.0) g/dL Crossmatch 11/09/23 11/09/23 11/09/23 Range/Units 04:55 05:00 05:00 WBC 11.6 H (3.8-10.6) k/uL RBC (4.30-5.90) m/uL Hgb (13.0-17.5) gm/dL MCV 103.2 H (80.0-100.0) fL Plt Count (150-450) k/uL Neutrophils # 10.0 H (1.3-7.7) k/uL Lymphocytes # 0.8 L (1.0-4.8) k/uL PT (10.0-12.5) sec INR (<1.2) ABG pH (7.35-7.45) ABG pCO2 (35-45) mmHg ABG pO2 (83-108) mmHg ABG Total CO2 (19-24) mmol/L ABG O2 Saturation (94-97) % Sodium 135 L (137-145) mmol/L Chloride (98-107) mmol/L Carbon Dioxide 20 L (22-30) mmol/L Creatinine 0.50 L (0.66-1.25) mg/dL Glucose 110 H (74-99) mg/dL POC Glucose (mg/dL) 111 H (70-110) mg/dL Calcium (8.4-10.2) mg/dL Ionized Calcium Ta (4.5-5.3) mg/dL Total Protein 5.6 L (6.3-8.2) g/dL Albumin (3.5-5.0) g/dL Crossmatch 11/09/23 11/09/23 11/09/23 Range/Units 07:00 08:08 10:10 WBC (3.8-10.6) k/uL RBC (4.30-5.90) m/uL Hgb (13.0-17.5) gm/dL MCV (80.0-100.0) fL Plt Count (150-450) k/uL Neutrophils # (1.3-7.7) k/uL Lymphocytes # (1.0-4.8) k/uL PT (10.0-12.5) sec INR (<1.2) ABG pH (7.35-7.45) ABG pCO2 (35-45) mmHg ABG pO2 (83-108) mmHg ABG Total CO2 (19-24) mmol/L ABG O2 Saturation (94-97) % Sodium (137-145) mmol/L Chloride (98-107) mmol/L Carbon Dioxide (22-30) mmol/L Creatinine (0.66-1.25) mg/dL Glucose (74-99) mg/dL POC Glucose (mg/dL) 126 H 126 H 126 H (70-110) mg/dL Calcium (8.4-10.2) mg/dL Ionized Calcium Ta (4.5-5.3) mg/dL Total Protein (6.3-8.2) g/dL Albumin (3.5-5.0) g/dL Crossmatch 11/09/23 Range/Units 11:46 WBC (3.8-10.6) k/uL RBC (4.30-5.90) m/uL Hgb (13.0-17.5) gm/dL MCV (80.0-100.0) fL Plt Count (150-450) k/uL Neutrophils # (1.3-7.7) k/uL Lymphocytes # (1.0-4.8) k/uL PT (10.0-12.5) sec INR (<1.2) ABG pH (7.35-7.45) ABG pCO2 (35-45) mmHg ABG pO2 (83-108) mmHg ABG Total CO2 (19-24) mmol/L ABG O2 Saturation (94-97) % Sodium (137-145) mmol/L Chloride (98-107) mmol/L Carbon Dioxide (22-30) mmol/L Creatinine (0.66-1.25) mg/dL Glucose (74-99) mg/dL POC Glucose (mg/dL) 124 H (70-110) mg/dL Calcium (8.4-10.2) mg/dL Ionized Calcium Ta (4.5-5.3) mg/dL Total Protein (6.3-8.2) g/dL Albumin (3.5-5.0) g/dL Crossmatch Assessment and Plan Assessment: Postop day #1, status post two-vessel bypass grafting. Routine postoperative ventilator management. Significant coronary artery disease, with anticipated bypass surgery, November 08, 2023. 52 years of tobacco use, 1 pack a day, with moderately severe COPD, and an FEV1 percent that is 53. FEV1 that is 1.80 L, which predicts a no/low increased operative risk for general anesthesia. History of diabetes mellitus. History of hypertension. History of hyperlipidemia. Peripheral vascular occlusive disease. Plan: Plan dated November 08, 2023. The patient is seen on the general medical floor. He is seen today in room 369. He is planning to undergo surgery, later today. I looked at his lung function. His FEV1 percent is 53. That would mean that he has moderately severe COPD. He smoked for 52 years. His FEV1 was 1.80 L, putting him in the no low increased operative risk category. Today, we explained our role in patients undergoing bypass. Initially, the plan is to get him off the ventilator soon as possible. Secondly, to see him every day, and make sure that he does not develop any pulmonary issues, after surgery. In that regard, we pointed out to him that incentive spirometry is very important. Plan dated 11/09/2023. The patient is seen today in room 267. Ascending the chair next to his hospital bed. He is currently on 4 L of oxygen. Is also getting saline at 40 mL now, and insulin drip at 0.5 units an hour. He status post two-vessel bypass grafting. The patient appears be doing well. We recommend deep breathing, coughing, and clearing her secretions. We also recommend hourly use of the incentive spirometer. We will continue to follow the patient, make recommendations along the way. Prognosis is guarded. Time with Patient: Greater than 30
[2023-11-09] MEDS: amLODIPine 2.5 MG TAB PO SCH (12:53)
[2023-11-09 14:25] LABS: Glucose,Whole Blood 133 mg/dL (70-110)
[2023-11-09 16:17] LABS: Glucose,Whole Blood 110 mg/dL (70-110)
--- NOTE | 2023-11-09 16:26 | P.CONS ---
History of Present Illness - Reason for Consult Consult date: 11/09/23 - Chief Complaint Coronary artery disease - History of Present Illness 68-year old male patient, past medical history diabetes, tobacco use and dependence 1 pack/day, hyperlipidemia, peripheral vascular disease status post aortobifemoral bypass, obstructive sleep apnea with home CPAP, diabetes mellitus type 2, history of prostate cancer s/p radiation, history of DVT in the right leg many years ago. Patient was recently in the office for preop clearance for left total hip arthroplasty. Patient underwent a stress test as part of the workup and was found to have a poor exercise tolerance with more than [address] segment depression. Patient had no previous obstructive CAD. Patient was advis ed to undergo cardiac catheterization which was performed yesterday. Cardiac catheterization revealed calcified left main, severe distal left main stenosis involving the ostium of the LAD and left circumflex, mild disease in the mid right, elevated LVEDP. --Patient was advised for CABG and was evaluated by cardiothoracic surgery. Workup and surgery has been scheduled. Chest x-ray: Mid right lower lobe infiltrate. Correlate for atelectasis or pneumonia. COPD. Carotid Doppler revealed no evidence of hemodynamically significant stenosis. Laboratory studies: Hemoglobin 15.6. Sodium 138, potassium 3.9, BUN 17 creatinine 0.59. Hemoglobin A1c 7.5. Cholesterol 119, triglycerides 115, LDL 5 6 and HDL 39. TSH 1.49. Hepatitis negative. Patient is status post CABG; POD #1 Review of Systems REVIEW OF SYSTEMS: CONSTITUTIONAL: No fever, no malaise, no fatigue. HEENT: No recent visual problems or hearing problems. Denied any sore throat. CARDIOVASCULAR: No chest pain, orthopnea, PND, no palpitations, no syncope. PULMONARY: No shortness of breath, no cough, no hemoptysis. GASTROINTESTINAL: No diarrhea, no nausea, no vomiting, no abdominal pain. NEUROLOGICAL: No headaches, no weakness, no numbness. HEMATOLOGICAL: Denies any bleeding or petechiae. GENITOURINARY: Denies any burning micturition, frequency, or urgency. MUSCULOSKELETAL/RHEUMATOLOGICAL: Denies any joint pain, swelling, or any muscle pain. ENDOCRINE: Denies any polyuria or polydipsia. The rest of the 14-point review of systems is negative. Past Medical History Past Medical History: Coronary Artery Disease (CAD), Cancer, Diabetes Mellitus, Deep Vein Thrombosis (DVT), Hyperlipidemia, Hypertension, Sleep Apnea/CPAP/BIPAP, Thyroid Disorder Additional Past Medical History / Comment(s): Prostate CA-received radiation, 2017 dvt rt leg 30 yrs ago,uses cpap, thyroid 4-5 yrs Graves disease, peripheral arterial disease History of Any Multi-Drug Resistant Organisms: None Reported Additional Past Surgical History / Comment(s): Aortobifemoral bypass, right eye surgery due to Graves., Past Anesthesia/Blood Transfusion Reactions: No Reported Reaction Past Psychological History: No Psychological Hx Reported Smoking Status: Current every day smoker Past Alcohol Use History: None Reported Past Drug Use History: None Reported - Past Family History Mother Family Medical History: No Reported History Additional Family Medical History / Comment(s): "Bad legs." Medications and Allergies Home Medications Medication Instructions Recorded Confirmed Type Tamsulosin HCl [Flomax] 0.4 mg PO HS 04/04/22 11/01/23 History buPROPion HCL [buPROPion HCL Xl] 150 mg PO HS 04/04/22 11/01/23 History Atorvastatin [Lipitor] 10 mg PO HS 10/23/23 11/01/23 History Pioglitazone [Actos] 15 mg PO DAILY 10/23/23 11/07/23 History metFORMIN HCL 500 mg PO DAILY 10/23/23 11/07/23 History Aspirin 325 mg PO BID 11/01/23 11/07/23 History Metoprolol Succinate [Metoprolol 25 mg PO DAILY 11/01/23 11/01/23 History Succinate ER] Allergies Allergy/AdvReac Type Severity Reaction Status Date / Time No Known Allergies Allergy Verified 11/08/23 11:31 Physical Exam Vitals: Vital Signs Temp Pulse Pulse Resp BP BP BP 11/09/23 10:30 65 19 11/09/23 10:00 66 14 11/09/23 09:30 68 13 11/09/23 09:00 75 15 11/09/23 08:30 79 21 11/09/23 08:00 99.5 F 78 24 11/09/23 07:30 78 35 H 11/09/23 07:00 75 34 H 11/09/23 06:30 75 32 H 11/09/23 06:00 71 25 H 11/09/23 05:30 72 18 11/09/23 05:00 71 24 11/09/23 04:30 72 35 H 11/09/23 04:00 98.8 F 70 17 11/09/23 03:30 71 19 11/09/23 03:00 72 18 110/60 11/09/23 02:45 73 18 11/09/23 02:30 72 16 11/09/23 02:15 72 21 11/09/23 02:00 73 14 11/09/23 01:45 73 16 11/09/23 01:30 71 16 11/09/23 01:15 70 16 11/09/23 01:00 70 17 11/09/23 00:45 67 17 11/09/23 00:30 69 29 H 11/09/23 00:16 66 22 11/09/23 00:15 69 17 11/09/23 00:00 97.9 F 69 14 11/08/23 23:45 70 26 H 11/08/23 23:30 62 26 H 11/08/23 23:15 59 L 17 11/08/23 23:00 57 L 20 114/62 11/08/23 22:45 55 L 20 11/08/23 22:30 55 L 12 11/08/23 22:15 54 L 21 11/08/23 22:00 55 L 20 11/08/23 21:40 54 L 20 11/08/23 21:30 55 L 16 11/08/23 21:21 11/08/23 21:20 55 L 18 11/08/23 21:10 53 L 16 117/64 11/08/23 21:00 96.3 F L 55 L 20 11/08/23 20:50 59 L 20 11/08/23 20:40 54 L 20 11/08/23 20:30 53 L 20 11/08/23 20:20 56 L 20 117/64 11/08/23 20:10 56 L 20 11/08/23 20:00 95 F L 56 L 18 121/68 11/08/23 19:50 57 L 18 11/08/23 19:40 56 L 18 11/08/23 19:30 62 18 121/68 11/08/23 19:20 56 L 18 11/08/23 19:10 56 L 18 11/08/23 19:00 51 L 16 11/08/23 18:59 11/08/23 18:50 59 L 16 11/08/23 18:44 07/18/24 18:40 50 L 16 11/08/23 18:33 50 L 16 11/08/23 18:30 11/08/23 14:15 54 L 16 148/63 11/08/23 14:00 49 L 16 158/67 11/08/23 13:45 52 L 16 157/65 11/08/23 13:30 50 L 16 144/65 11/08/23 13:15 49 L 18 152/70 11/08/23 13:00 50 L 16 141/70 11/08/23 12:45 53 L 16 173/74 11/08/23 11:24 97.7 F 51 L 16 147/71 151/71 Pulse Ox FiO2 11/09/23 10:30 97 11/09/23 10:00 92 L 11/09/23 09:30 95 11/09/23 09:00 97 11/09/23 08:30 94 L 11/09/23 08:00 98 11/09/23 07:30 97 11/09/23 07:00 97 11/09/23 06:30 94 L 11/09/23 06:00 95 11/09/23 05:30 97 11/09/23 05:00 95 11/09/23 04:30 96 11/09/23 04:00 97 11/09/23 03:30 96 11/09/23 03:00 95 11/09/23 02:45 95 11/09/23 02:30 95 11/09/23 02:15 95 11/09/23 02:00 95 11/09/23 01:45 94 L 11/09/23 01:30 95 11/09/23 01:15 95 11/09/23 01:00 94 L 11/09/23 00:45 95 11/09/23 00:30 95 11/09/23 00:16 94 L 11/09/23 00:15 93 L 11/09/23 00:00 96 11/08/23 23:45 98 11/08/23 23:30 99 11/08/23 23:15 100 11/08/23 23:00 97 11/08/23 22:45 98 11/08/23 22:30 98 11/08/23 22:15 98 11/08/23 22:00 98 11/08/23 21:40 98 07/18/24 21:30 98 11/08/23 21:21 40 11/08/23 21:20 100 40 11/08/23 21:10 100 11/08/23 21:00 100 60 11/08/23 20:50 100 11/08/23 20:40 100 11/08/23 20:30 100 11/08/23 20:20 100 11/08/23 20:10 100 11/08/23 20:00 100 60 11/08/23 19:50 100 11/08/23 19:40 100 11/08/23 19:30 99 11/08/23 19:20 100 11/08/23 19:10 100 11/08/23 19:00 100 60 11/08/23 18:59 60 11/08/23 18:50 100 11/08/23 18:44 100 11/08/23 18:40 100 11/08/23 18:33 100 100 11/08/23 18:30 100 11/08/23 14:15 99 11/08/23 14:00 98 11/08/23 13:45 98 11/08/23 13:30 97 11/08/23 13:15 98 11/08/23 13:00 99 11/08/23 12:45 99 11/08/23 11:24 96 Intake and Output 11/08/23 11/09/23 11/09/23 22:59 06:59 14:59 Intake Total 380.108 548.101 226 Output Total 2845 1980 360 Balance -2464.892 -1431.899 -134 Intake: IV 321 493 226 CO/CI 90 80 Sodium Chloride 0.9% 1, 150 350 190 000 ml @ 20 mls/hr IV . Q24H [facility] Rx#:[id number] pressure bag 27 63 36 Intake, IV Titration 59.108 55.101 0 Amount Clevidipine Butyrate 25 0.233 53.434 mg In Empty Bag 1 bag @ 1 MG/HR 2 mls/hr IV .Q24H [facility] Rx#:[id number] Insulin Regular 100 unit 1.667 0 In Sodium Chloride 0.9% 100 ml @ Per Protocol IV .Q0M [facility] Rx#:[id number] propofoL 1,000 mg In 58.875 Empty Bag 1 bag @ Titrate IV .Q0M ANITA Rx#: [id number] Output: Chest Tube Drainage 310 280 150 Chest Tube Left 60 30 40 Mediastinal 250 250 110 Urine 1835 1700 210 Estimated Blood Loss 700 Other: Voiding Method Indwelling Catheter Indwelling Catheter Weight 104.6 kg ABP, PAP, CO, CI - Last 8 Hours Arterial Blood Pressure 97/38 Arterial Blood Pressure 107/53 Arterial Blood Pressure 111/55 Arterial Blood Pressure 121/57 Arterial Blood Pressure 126/63 Arterial Blood Pressure 132/58 Arterial Blood Pressure 119/54 Arterial Blood Pressure 123/56 Arterial Blood Pressure 109/57 Arterial Blood Pressure 124/55 Arterial Blood Pressure 134/60 Arterial Blood Pressure 132/57 Arterial Blood Pressure 138/59 Arterial Blood Pressure 136/56 Arterial Blood Pressure 141/58 Arterial Blood Pressure 124/50 Pulmonary Artery Pressure 21/8 Pulmonary Artery Pressure 23/8 Pulmonary Artery Pressure 24/7 Pulmonary Artery Pressure 24/12 Pulmonary Artery Pressure 24/6 Pulmonary Artery Pressure 25/8 Pulmonary Artery Pressure 25/12 Pulmonary Artery Pressure 23/10 Pulmonary Artery Pressure 28/15 Pulmonary Artery Pressure 30/16 Pulmonary Artery Pressure 26/15 Pulmonary Artery Pressure 29/14 Pulmonary Artery Pressure 27/8 Pulmonary Artery Pressure 27/11 Pulmonary Artery Pressure 27/14 Cardiac Output 7.2 Cardiac Output 7.2 Cardiac Output 7.2 Cardiac Index 3.2 Cardiac Index 3.2 Cardiac Index 3.2 No acute distress, oriented 3. HEENT examination is grossly unremarkable. Mucous membranes are moist. No oral lesions. Neck supple. Full range of motion. No adenopathy thyromegaly or neck vein distention. Cardiovascular examination reveals regular rhythm rate. S1-S2 normal. No S3 or S4. No discernible murmur noted. Heart rate 51 bpm. Lungs reveal clear breath sounds. Breath sounds are equal bilaterally. No adventitious lung sounds including wheezes rhonchi or crackles. Room air saturation is 96%. Abdomen soft bowel sounds are heard. No masses or tenderness. Extremities are intact. No cyanosis clubbing or edema. Skin is without rash or lesion. Neurologic examination is brief but nonfocal. Results CBC & Chem 7: 11/09/23 05:00 11/09/23 05:00 Labs: Abnormal Lab Results - Last 24 Hours (Table) 11/07/23 11/08/23 11/08/23 Range/Units 16:23 18:35 18:35 WBC (3.8-10.6) k/uL RBC 3.76 L (4.30-5.90) m/uL Hgb 12.8 L (13.0-17.5) gm/dL MCV 104.3 H (80.0-100.0) fL Plt Count 123 L (150-450) k/uL Neutrophils # 8.5 H (1.3-7.7) k/uL Lymphocytes # (1.0-4.8) k/uL PT 13.2 H (10.0-12.5) sec INR 1.3 H (<1.2) ABG pH (7.35-7.45) ABG pCO2 (35-45) mmHg ABG pO2 (83-108) mmHg ABG Total CO2 (19-24) mmol/L ABG O2 Saturation (94-97) % Sodium (137-145) mmol/L Chloride (98-107) mmol/L Carbon Dioxide (22-30) mmol/L Creatinine (0.66-1.25) mg/dL Glucose (74-99) mg/dL POC Glucose (mg/dL) (70-110) mg/dL Calcium (8.4-10.2) mg/dL Ionized Calcium Ta (4.5-5.3) mg/dL Total Protein (6.3-8.2) g/dL Albumin (3.5-5.0) g/dL Crossmatch See Detail 11/08/23 11/08/23 11/08/23 Range/Units 18:35 18:53 20:30 WBC 13.3 H (3.8-10.6) k/uL RBC 4.16 L (4.30-5.90) m/uL Hgb (13.0-17.5) gm/dL MCV 104.8 H (80.0-100.0) fL Plt Count (150-450) k/uL Neutrophils # 10.5 H (1.3-7.7) k/uL Lymphocytes # (1.0-4.8) k/uL PT (10.0-12.5) sec INR (<1.2) ABG pH 7.30 L (7.35-7.45) ABG pCO2 48 H (35-45) mmHg ABG pO2 317 H (83-108) mmHg ABG Total CO2 25 H (19-24) mmol/L ABG O2 Saturation 100.1 H (94-97) % Sodium (137-145) mmol/L Chloride 114 H (98-107) mmol/L Carbon Dioxide 21 L (22-30) mmol/L Creatinine 0.52 L (0.66-1.25) mg/dL Glucose (74-99) mg/dL POC Glucose (mg/dL) (70-110) mg/dL Calcium 7.6 L (8.4-10.2) mg/dL Ionized Calcium Ta 4.4 L (4.5-5.3) mg/dL Total Protein 4.8 L (6.3-8.2) g/dL Albumin 2.9 L (3.5-5.0) g/dL Crossmatch 11/08/23 11/08/23 11/08/23 Range/Units 21:14 22:06 23:34 WBC (3.8-10.6) k/uL RBC (4.30-5.90) m/uL Hgb (13.0-17.5) gm/dL MCV (80.0-100.0) fL Plt Count (150-450) k/uL Neutrophils # (1.3-7.7) k/uL Lymphocytes # (1.0-4.8) k/uL PT (10.0-12.5) sec INR (<1.2) ABG pH 7.30 L (7.35-7.45) ABG pCO2 47 H (35-45) mmHg ABG pO2 121 H (83-108) mmHg ABG Total CO2 25 H (19-24) mmol/L ABG O2 Saturation 98.7 H 97.4 H (94-97) % Sodium (137-145) mmol/L Chloride (98-107) mmol/L Carbon Dioxide (22-30) mmol/L Creatinine (0.66-1.25) mg/dL Glucose (74-99) mg/dL POC Glucose (mg/dL) 113 H (70-110) mg/dL Calcium (8.4-10.2) mg/dL Ionized Calcium Ta (4.5-5.3) mg/dL Total Protein (6.3-8.2) g/dL Albumin (3.5-5.0) g/dL Crossmatch 11/08/23 11/08/23 11/09/23 Range/Units 23:35 23:36 02:55 WBC 14.2 H (3.8-10.6) k/uL RBC (4.30-5.90) m/uL Hgb (13.0-17.5) gm/dL MCV 104.1 H (80.0-100.0) fL Plt Count 147 L (150-450) k/uL Neutrophils # 11.8 H (1.3-7.7) k/uL Lymphocytes # (1.0-4.8) k/uL PT (10.0-12.5) sec INR (<1.2) ABG pH (7.35-7.45) ABG pCO2 (35-45) mmHg ABG pO2 (83-108) mmHg ABG Total CO2 (19-24) mmol/L ABG O2 Saturation (94-97) % Sodium (137-145) mmol/L Chloride (98-107) mmol/L Carbon Dioxide (22-30) mmol/L Creatinine (0.66-1.25) mg/dL Glucose (74-99) mg/dL POC Glucose (mg/dL) 117 H 133 H (70-110) mg/dL Calcium (8.4-10.2) mg/dL Ionized Calcium Ta (4.5-5.3) mg/dL Total Protein (6.3-8.2) g/dL Albumin (3.5-5.0) g/dL Crossmatch 11/09/23 11/09/23 11/09/23 Range/Units 04:55 05:00 05:00 WBC 11.6 H (3.8-10.6) k/uL RBC (4.30-5.90) m/uL Hgb (13.0-17.5) gm/dL MCV 103.2 H (80.0-100.0) fL Plt Count (150-450) k/uL Neutrophils # 10.0 H (1.3-7.7) k/uL Lymphocytes # 0.8 L (1.0-4.8) k/uL PT (10.0-12.5) sec INR (<1.2) ABG pH (7.35-7.45) ABG pCO2 (35-45) mmHg ABG pO2 (83-108) mmHg ABG Total CO2 (19-24) mmol/L ABG O2 Saturation (94-97) % Sodium 135 L (137-145) mmol/L Chloride (98-107) mmol/L Carbon Dioxide 20 L (22-30) mmol/L Creatinine 0.50 L (0.66-1.25) mg/dL Glucose 110 H (74-99) mg/dL POC Glucose (mg/dL) 111 H (70-110) mg/dL Calcium (8.4-10.2) mg/dL Ionized Calcium Ta (4.5-5.3) mg/dL Total Protein 5.6 L (6.3-8.2) g/dL Albumin (3.5-5.0) g/dL Crossmatch 11/09/23 11/09/23 11/09/23 Range/Units 07:00 08:08 10:10 WBC (3.8-10.6) k/uL RBC (4.30-5.90) m/uL Hgb (13.0-17.5) gm/dL MCV (80.0-100.0) fL Plt Count (150-450) k/uL Neutrophils # (1.3-7.7) k/uL Lymphocytes # (1.0-4.8) k/uL PT (10.0-12.5) sec INR (<1.2) ABG pH (7.35-7.45) ABG pCO2 (35-45) mmHg ABG pO2 (83-108) mmHg ABG Total CO2 (19-24) mmol/L ABG O2 Saturation (94-97) % Sodium (137-145) mmol/L Chloride (98-107) mmol/L Carbon Dioxide (22-30) mmol/L Creatinine (0.66-1.25) mg/dL Glucose (74-99) mg/dL POC Glucose (mg/dL) 126 H 126 H 126 H (70-110) mg/dL Calcium (8.4-10.2) mg/dL Ionized Calcium Ta (4.5-5.3) mg/dL Total Protein (6.3-8.2) g/dL Albumin (3.5-5.0) g/dL Crossmatch Assessment and Plan Assessment: Coronary artery disease with left main disease Hypertension Hyperlipidemia Peripheral vascular disease with previous aortobifemoral bypass Obstructive sleep apnea on home CPAP Diabetes mellitus type 2 Prostate cancer in 2020 status post radiation Current tobacco use and dependence Plan: Continue patient's home cardiac medications Patient is status post CABG x 2 with VERGARA to LAD and left radial artery to obtuse marginal, endovascular radial artery harvest, DALILA by anesthesia, POD #1 -- Patient was successfully extubated last night -Thoracic surgery recommending to start low-dose oral calcium channel shelly for radial artery spasm prophylaxis; titrate beta-blockers as tolerated; patient will remain on aspirin, statins, Plavix and beta-shelly
[2023-11-09 17:09] LABS: Glucose,Whole Blood 94 mg/dL (70-110)
[2023-11-09 19:10] LABS: Glucose,Whole Blood 132 mg/dL (70-110)
[2023-11-09 20:04] LABS: Glucose,Whole Blood 137 mg/dL (70-110)
[2023-11-09] MEDS: TAMSULOSIN 0.4 MG CAP.ER.24H PO SCH (20:05)
[2023-11-09 21:05] LABS: Glucose,Whole Blood 116 mg/dL (70-110)
[2023-11-09 22:08] LABS: Glucose,Whole Blood 116 mg/dL (70-110)
[2023-11-09 23:49] LABS: Glucose,Whole Blood 95 mg/dL (70-110)
[2023-11-10 02:01] LABS: Glucose,Whole Blood 106 mg/dL (70-110)
[2023-11-10 04:15] LABS: Glucose,Whole Blood 122 mg/dL (70-110)
[2023-11-10 05:54] LABS: Glucose,Whole Blood 114 mg/dL (70-110)
[2023-11-10 06:01] LABS: Basophils % (A) 0 %; Eosinophils # (A) 0.2 k/uL (0-0.7); Eosinophils % (A) 1 %; HCT 48.4 % (39.0-53.0); HGB 15.5 gm/dL (13.0-17.5); Hypochromasia Slight; Lymphocytes # (A) 1.3 k/uL (1.0-4.8); Lymphocytes % (A) 11 %; MCH 33.6 pg (25.0-35.0); MCV 105.1 fL (80.0-100.0); Macrocytosis Slight; Mean Platelet Volume 8.2; Monocytes % (A) 9 %; Neutrophils # (A) 8.8 k/uL (1.3-7.7); Neutrophils % (A) 77 %; Platelet Count 142 k/uL (150-450); RBC 4.61 m/uL (4.30-5.90); RDW 13.3 % (11.5-15.5); WBC 11.4 k/uL (3.8-10.6)
[2023-11-10 06:10] LABS: ALT 14 U/L (4-49); AST 48 U/L (17-59); African American GFR (CKD) >90 (>60 ml/min/1.73 sqM); Albumin 3.3 g/dL (3.5-5.0); Alkaline Phosphatase 66 U/L (38-126); Anion Gap 7 mmol/L; Blood Urea Nitrogen 14 mg/dL (9-20); Calcium 8.1 mg/dL (8.4-10.2); Carbon Dioxide 19 mmol/L (22-30); Chloride 107 mmol/L (98-107); Glucose 107 mg/dL (74-99); Non-African American GFR(CKD) >90 (>60 ml/min/1.73 sqM); Potassium 4.2 mmol/L (3.5-5.1); Sodium 133 mmol/L (137-145); Total Bilirubin 1.1 mg/dL (0.2-1.3); Total Protein 5.6 g/dL (6.3-8.2)
[2023-11-10] MEDS: PANTOPRAZOLE 40 MG TABLET PO SCH (06:30)
--- NOTE | 2023-11-10 07:37 | XR ---
EXAMINATION TYPE: XR chest 1V portable DATE OF EXAM: 11/10/2023 5:23 AM CLINICAL INDICATION:Male, 68 years old with history of Post Operative Cardiac Surgery; [facility] COMPARISON: Chest radiograph from one day prior. TECHNIQUE: XR chest 1V portable Frontal view of the chest. FINDINGS: Lungs/Pleura: No evidence of focal consolidation or pneumothorax. Blunting of the costophrenic angles is present. Pulmonary vascularity: Unremarkable. Heart/mediastinum: Cardiomediastinal silhouette is unremarkable. Atherosclerotic calcifications are seen in the aorta. Musculoskeletal: No acute osseous pathology. Midline sternotomy wires are noted. Other findings: None Lines/Tubes: Left thoracotomy tube is present without evidence of pneumothorax. There is a [place]-More catheter sheath in place. Drainage tubes with tips projecting over the mediastinum. IMPRESSION: Stable appearance of lungs with support tubes in place. No pneumothorax. Trace bilateral pleural effusions suggested.
[2023-11-10 08:30] LABS: Glucose,Whole Blood 156 mg/dL (70-110)
[2023-11-10] MEDS: METOPROLOL TARTRATE 25 MG TAB PO SCH (08:33)
--- NOTE | 2023-11-10 09:46 | P.PN ---
Subjective Progress Note Date: 11/10/23 Principal diagnosis: Coronary artery disease with left main disease, unstable angina. History of hypertension, hyperlipidemia, peripheral arterial disease with previous aorto bifemoral bypass, obstructive sleep apnea with home CPAP use, type 2 diabetes, prostate cancer in 2020 status post radiation, current tobacco dependence, arthritis, previous history of COVID POD #2 off-pump CABG x 2 with VERGARA to LAD and left radial artery to obtuse marginal, endovascular radial artery harvest, DALILA by anesthesia The patient was seen and examined this morning sitting up in a recliner in the intensive care unit in no acute distress. Remains in sinus rhythm, hemodynamically stable on no inotropes or pressors. States post surgical pain is better controlled today. Denies shortness of breath. Currently on 2 L nasal cannula with oxygen saturation in the mid 90s, able to achieve 1250 mL on his incentive spirometry. Right internal jugular cordis, right radial arterial line, mediastinal/left pleural chest tubes all remaining. No other new concerns. Objective - Vital Signs Vital signs: Vital Signs Temp 99.4 F 11/10/23 04:00 Pulse 74 11/10/23 08:00 Resp 18 11/10/23 08:00 BP 132/78 11/10/23 08:00 Pulse Ox 93 L 11/10/23 08:00 FiO2 40 11/08/23 21:21 Intake & Output 11/09/23 11/10/23 11/10/23 18:59 06:59 18:59 Intake Total 606.200 553.341 92 Output Total 620 1155 105 Balance -13.800 -601.659 -13 Weight 104.6 kg 107.6 kg Intake: IV 600 552 92 Sodium Chloride 0.9% 1, 510 480 80 000 ml @ 20 mls/hr IV . Q24H [facility] Rx#:[id number] pressure bag 90 72 12 Intake, IV Titration 6.200 1.341 0 Amount Insulin Regular 100 unit 6.200 1.341 0 In Sodium Chloride 0.9% 100 ml @ Per Protocol IV .Q0M ANITA Rx#:[id number] Output: Chest Tube Drainage 245 280 0 Chest Tube Left 95 130 0 Mediastinal 150 150 0 Urine 375 875 105 Other: Voiding Method Indwelling Catheter Indwelling Catheter ABP, PAP, CO, CI - Last Documented Arterial Blood Pressure 102/58 Pulmonary Artery Pressure 21/8 Cardiac Output 7.2 Cardiac Index 3.2 - Exam CONSTITUTIONAL: Appears comfortable, cooperative, no acute distress RESPIRATORY: Lungs sounds diminished bilaterally. Respirations even, nonlabored. Currently on 2 L nasal cannula with oxygen saturation 94%. Able to achieve 1250 mL on incentive spirometry. Strong cough. CARDIOVASCULAR: S1, S2 present. Regular rate and rhythm, sinus rhythm on telemetry. Sternum stable. Palpable peripheral pulses bilaterally. No edema present. No calf pain or tenderness noted. Heart hugger in place with patient demonstrating appropriate use. Antiembolism stockings, SCDs present. GASTROINTESTINAL: Abdomen soft, nontender, nondistended. Active bowel sounds present 4 quadrants. Tolerating diet. Positive flatus GENITOURINARY: Alvarenga present draining clear, yellow urine. Output overnight 50-260 mL per hour, 1250 mL in the last 24 hours INTEGUMENTARY: Skin is warm and dry with evidence of good perfusion. Anterior chest incision well approximated and covered with dry intact dressing. Left radial artery harvest site well approximated without redness or drainage. NEUROLOGIC: Cranial nerves II through XII intact MUSKULOSKELETAL: Able to move all extremities, strength equal bilaterally, gait normal PSYCHIATRIC: Alert and oriented to person place and time, appropriate affect, intact judgment and insight INVASIVE LINES AND TUBES: Mediastinal/left pleural chest tubes present and connected to wall suction, no air leaks present. Mediastinal tube with 80 mL serosanguineous drainage overnight, 250 mL in the last 24 hours. Left pleural chest tube with 130 mL serosanguineous drainage overnight, 150 mL in the last 24 hours. Right internal jugular cordis, right radial arterial line present - Allied health notes Allied health notes reviewed: nursing - Labs CBC & Chem 7: 11/10/23 05:19 11/10/23 05:19 Labs: Abnormal Lab Results - Last 24 Hours (Table) 11/09/23 11/09/23 11/09/23 Range/Units 10:10 11:46 14:20 WBC (3.8-10.6) k/uL MCV (80.0-100.0) fL Plt Count (150-450) k/uL Neutrophils # (1.3-7.7) k/uL Sodium (137-145) mmol/L Carbon Dioxide (22-30) mmol/L Creatinine (0.66-1.25) mg/dL Glucose (74-99) mg/dL POC Glucose (mg/dL) 126 H 124 H 133 H (70-110) mg/dL Calcium (8.4-10.2) mg/dL Total Protein (6.3-8.2) g/dL Albumin (3.5-5.0) g/dL 11/09/23 11/09/23 11/09/23 Range/Units 19:08 20:03 21:04 WBC (3.8-10.6) k/uL MCV (80.0-100.0) fL Plt Count (150-450) k/uL Neutrophils # (1.3-7.7) k/uL Sodium (137-145) mmol/L Carbon Dioxide (22-30) mmol/L Creatinine (0.66-1.25) mg/dL Glucose (74-99) mg/dL POC Glucose (mg/dL) 132 H 137 H 116 H (70-110) mg/dL Calcium (8.4-10.2) mg/dL Total Protein (6.3-8.2) g/dL Albumin (3.5-5.0) g/dL 11/09/23 11/10/23 11/10/23 Range/Units 22:06 04:13 05:19 WBC 11.4 H (3.8-10.6) k/uL MCV 105.1 H (80.0-100.0) fL Plt Count 142 L (150-450) k/uL Neutrophils # 8.8 H (1.3-7.7) k/uL Sodium (137-145) mmol/L Carbon Dioxide (22-30) mmol/L Creatinine (0.66-1.25) mg/dL Glucose (74-99) mg/dL POC Glucose (mg/dL) 116 H 122 H (70-110) mg/dL Calcium (8.4-10.2) mg/dL Total Protein (6.3-8.2) g/dL Albumin (3.5-5.0) g/dL 11/10/23 11/10/23 11/10/23 Range/Units 05:19 05:52 08:29 WBC (3.8-10.6) k/uL MCV (80.0-100.0) fL Plt Count (150-450) k/uL Neutrophils # (1.3-7.7) k/uL Sodium 133 L (137-145) mmol/L Carbon Dioxide 19 L (22-30) mmol/L Creatinine 0.62 L (0.66-1.25) mg/dL Glucose 107 H (74-99) mg/dL POC Glucose (mg/dL) 114 H 156 H (70-110) mg/dL Calcium 8.1 L (8.4-10.2) mg/dL Total Protein 5.6 L (6.3-8.2) g/dL Albumin 3.3 L (3.5-5.0) g/dL Microbiology - Last 24 Hours (Table) 11/07/23 16:34 Nasal Screen MRSA/MSSA - Final Nasal Swab - Imaging and Cardiology Chest x-ray: report reviewed, image reviewed Assessment and Plan Assessment: Coronary artery disease with left main disease, unstable angina, status post 2V off pump CABG Hypertension Hyperlipidemia, Treated, cholesterol 119, LDL 56 Peripheral arterial disease with previous aorto bifemoral bypass Obstructive sleep apnea with home CPAP use Type 2 diabetes, Preoperative hemoglobin A1c 7.5% Prostate cancer in 2019 status post radiation, currently on flomax outpatient Current tobacco dependence Moderate COPD, preoperative FEV1 53% of predicted Arthritis Previous history of COVID Plan: Continue to maximize medical therapy with aspirin, statin, Plavix, beta shelly. Will increase beta shelly therapy as tolerated, increased to 25 mg twice daily today Continue oral calcium channel shelly for radial artery spasm prophylaxis, increased to 5 mg daily today Wean oxygen as tolerated, encourage incentive spirometry use 10 times every hour while awake, bronchodilators per pulmonology Increase activity, ambulate as tolerated. PT/OT/cardiac rehab consulted Will monitor daily labs and x-rays, electrolyte replacement per protocol. No Lasix today GI/DVT prophylaxis Insulin management per internal medicine Pain control per current medication regimen Discontinue cordis, arterial line Discontinue mediastinal and left pleural chest tubes Discontinue Alvarenga catheter, may bladder scan and straight cath for greater than 300 mL residual Continue to record strict accurate intake and output Home dose of Flomax ordered Daily weights Smoking cessation counseling education provided, patient strongly encouraged complete smoking cessation. Will be provided with 1 800 quit now helpline upon discharge Will place transfer orders for 3 S. cardiac stepdown unit, may transfer when bed available More recommendations to follow
[2023-11-10 09:53] LABS: Glucose,Whole Blood 155 mg/dL (70-110)
--- NOTE | 2023-11-10 11:32 | P.PN ---
Subjective Progress Note Date: 11/10/23 Principal diagnosis: Coronary artery disease. Pulmonary consult dated November 08, 2023. 68-year-old male who was seen by cardiology, for chest discomfort. The patient has a history of diabetes, chronic tobacco use, hyperlipidemia, and peripheral vascular disease. He had a previous aortobifemoral bypass. The patient had a stress test, for preoperative clearance, and was noted to have ST-T wave changes. For that reason, the patient underwent cardiac catheterization, was found to have significant coronary disease. The patient is scheduled for bypass grafting, with Dr. Rosales today. The patient is a smoker, having smoked for 52 years. I did look at his lung function. His FEV1 is 1.80 L which is 53% of predicted. Hence, he has moderately severe COPD. He does have shortness of breath on exertion. Currently he is on room air. He is getting saline at 75 cc an hour. His cardiac catheterization, revealed a calcified left main coronary artery, severe distal left main stenosis involving the ostium of the LAD and left circumflex, and mild disease in the right coronary artery. Chest CT showed extensive three-vessel coronary artery calcification. There is also changes of COPD/emphysema. Most recent labs include a white count 7.1, hemoglobin 15.6, hematocrit 48.2, and a platelet count of 194,000. Sodium 138, potassium 3.9, chlorides 110, CO2 23, BUN 17, creatinine 0.59. Glucose is 91. Progress note dated 11/09/2023. 68-year-old male postop day #1, status post two-vessel bypass surgery. Currently, the patient is seen in room 267. He appears to be doing relatively well. He is currently on 4 L of oxygen. Is getting saline at 40 mL an hour, insulin drip at 0.5 units an hour.Current labs include a white count 11.6, he will 14.6, hematocrit 44.8, and a platelet count of 152,000. Sodium 135, potassium 3.9, chloride 107, bicarbonate 20, BUN 10, creatinine 0.5. The rest of the comprehensive metabolic profile looks good.Chest x-ray shows bibasilar atelectasis, small pleural effusions, and some mild interstitial edema. Progress note dated November 10, 2023. 68-year-old male who is seen today in room 267. He is status post two-vessel bypass surgery, postop day number, #2. The patient appears to be doing relatively well. Currently, he is on 2 L of oxygen. He is getting saline at KVO. He is on an insulin drip at 1.5 units an hour. According to the nurse, Roula, he had an uneventful night. Current laboratory data includes a white count 11.4, hemoglobin 15.5, hematocrit 48.4, and a platelet count of 142,000. Sodium 133, potassium 4.2, chlorides 107, CO2 19, BUN and creatinine were 14 and 0.62. Glucose 155. Albumin 3.3. Chest x-ray shows trace bilateral pleural effusions. Objective - Vital Signs Vital signs: Vital Signs Temp 99.4 F 11/10/23 04:00 Pulse 73 11/10/23 11:00 Resp 16 11/10/23 11:00 BP 124/76 11/10/23 11:00 Pulse Ox 96 11/10/23 10:00 FiO2 40 11/08/23 21:21 Intake & Output 11/09/23 11/10/23 11/10/23 18:59 06:59 18:59 Intake Total 606.200 553.341 184 Output Total 620 1155 270 Balance -13.800 -601.659 -86 Weight 104.6 kg 107.6 kg Intake: IV 600 552 184 Sodium Chloride 0.9% 1, 510 480 160 000 ml @ 20 mls/hr IV . Q24H [facility] Rx#:[id number] pressure bag 90 72 24 Intake, IV Titration 6.200 1.341 0 Amount Insulin Regular 100 unit 6.200 1.341 0 In Sodium Chloride 0.9% 100 ml @ Per Protocol IV .Q0M [facility] Rx#:[id number] Output: Chest Tube Drainage 245 280 0 Chest Tube Left 95 130 0 Mediastinal 150 150 0 Urine 375 875 270 Other: Voiding Method Indwelling Catheter Indwelling Catheter ABP, PAP, CO, CI - Last Documented Arterial Blood Pressure 102/58 Pulmonary Artery Pressure 21/8 Cardiac Output 7.2 Cardiac Index 3.2 - Exam No acute distress, oriented 3.Currently on r 2 L. Saturations are 96%. HEENT examination is grossly unremarkable. Mucous membranes are moist. No oral lesions. Neck supple. Full range of motion. No adenopathy thyromegaly or neck vein distention. Cardiovascular examination reveals regular rhythm rate. S1-S2 normal. No S3 or S4. No discernible murmur noted. Heart rate 74 bpm. Lungs reveal scattered bilateral rhonchi. No wheezes or crackles. Breath sounds equal bilaterally. Abdomen soft bowel sounds are heard. No masses or tenderness. Extremities are intact. No cyanosis clubbing or edema. Skin is without rash or lesion. Neurologic examination is brief but nonfocal. - Labs CBC & Chem 7: 11/10/23 05:19 11/10/23 05:19 Labs: Abnormal Lab Results - Last 24 Hours (Table) 11/09/23 11/09/23 11/09/23 Range/Units 11:46 14:20 19:08 WBC (3.8-10.6) k/uL MCV (80.0-100.0) fL Plt Count (150-450) k/uL Neutrophils # (1.3-7.7) k/uL Sodium (137-145) mmol/L Carbon Dioxide (22-30) mmol/L Creatinine (0.66-1.25) mg/dL Glucose (74-99) mg/dL POC Glucose (mg/dL) 124 H 133 H 132 H (70-110) mg/dL Calcium (8.4-10.2) mg/dL Total Protein (6.3-8.2) g/dL Albumin (3.5-5.0) g/dL 11/09/23 11/09/23 11/09/23 Range/Units 20:03 21:04 22:06 WBC (3.8-10.6) k/uL MCV (80.0-100.0) fL Plt Count (150-450) k/uL Neutrophils # (1.3-7.7) k/uL Sodium (137-145) mmol/L Carbon Dioxide (22-30) mmol/L Creatinine (0.66-1.25) mg/dL Glucose (74-99) mg/dL POC Glucose (mg/dL) 137 H 116 H 116 H (70-110) mg/dL Calcium (8.4-10.2) mg/dL Total Protein (6.3-8.2) g/dL Albumin (3.5-5.0) g/dL 11/10/23 11/10/23 11/10/23 Range/Units 04:13 05:19 05:19 WBC 11.4 H (3.8-10.6) k/uL MCV 105.1 H (80.0-100.0) fL Plt Count 142 L (150-450) k/uL Neutrophils # 8.8 H (1.3-7.7) k/uL Sodium 133 L (137-145) mmol/L Carbon Dioxide 19 L (22-30) mmol/L Creatinine 0.62 L (0.66-1.25) mg/dL Glucose 107 H (74-99) mg/dL POC Glucose (mg/dL) 122 H (70-110) mg/dL Calcium 8.1 L (8.4-10.2) mg/dL Total Protein 5.6 L (6.3-8.2) g/dL Albumin 3.3 L (3.5-5.0) g/dL 11/10/23 11/10/23 11/10/23 Range/Units 05:52 08:29 09:50 WBC (3.8-10.6) k/uL MCV (80.0-100.0) fL Plt Count (150-450) k/uL Neutrophils # (1.3-7.7) k/uL Sodium (137-145) mmol/L Carbon Dioxide (22-30) mmol/L Creatinine (0.66-1.25) mg/dL Glucose (74-99) mg/dL POC Glucose (mg/dL) 114 H 156 H 155 H (70-110) mg/dL Calcium (8.4-10.2) mg/dL Total Protein (6.3-8.2) g/dL Albumin (3.5-5.0) g/dL Microbiology - Last 24 Hours (Table) 11/07/23 16:34 Nasal Screen MRSA/MSSA - Final Nasal Swab Assessment and Plan Assessment: Postop day #2, status post two-vessel bypass grafting. Routine postoperative ventilator management. Significant coronary artery disease, with anticipated bypass surgery, November 08, 2023. 52 years of tobacco use, 1 pack a day, with moderately severe COPD, and an FEV1 percent that is 53. FEV1 that is 1.80 L, which predicts a no/low increased operative risk for general anesthesia. History of diabetes mellitus. History of hypertension. History of hyperlipidemia. Peripheral vascular occlusive disease. Plan: Plan dated November 08, 2023. The patient is seen on the general medical floor. He is seen today in room 369. He is planning to undergo surgery, later today. I looked at his lung function. His FEV1 percent is 53. That would mean that he has moderately severe COPD. He smoked for 52 years. His FEV1 was 1.80 L, putting him in the no low increased operative risk category. Today, we explained our role in patients undergoing bypass. Initially, the plan is to get him off the ventilator soon as possible. Secondly, to see him every day, and make sure that he does not develop any pulmonary issues, after surgery. In that regard, we pointed out to him that incentive spirometry is very important. Plan dated 11/09/2023. The patient is seen today in room 267. Ascending the chair next to his hospital bed. He is currently on 4 L of oxygen. Is also getting saline at 40 mL now, and insulin drip at 0.5 units an hour. He status post two-vessel bypass grafting. The patient appears be doing well. We recommend deep breathing, coughing, and clearing her secretions. We also recommend hourly use of the incentive spirometer. We will continue to follow the patient, make recommendations along the way. Prognosis is guarded. Plan dated November 10, 2023. The patient appears to be doing relatively well. He is seen today in room 267. He has been weaned down to 2 L. Saturations were in the mid to high 90s. He continues on saline at KVO. He is on an insulin drip at 1.5 units an hour. Labs, x-rays, and medications are reviewed. No additional recommendations are made at this time. We encourage deep breathing, coughing, clearing of secretions. We also recommend hourly use of the incentive spirometer. We will continue to follow the patient, make recommendations along the way. Time with Patient: Less than 30
[2023-11-10 12:13] LABS: Glucose,Whole Blood 125 mg/dL (70-110)
[2023-11-10] MEDS: INSULIN ASPART (NovoLOG) 100 UNIT/ML VIAL SQ SCH (12:14)
[2023-11-10] MEDS: amLODIPine 5 MG TAB PO SCH (12:21)
--- NOTE | 2023-11-10 12:24 | P.PN ---
Subjective Progress Note Date: 11/10/23 The patient is 68-year-old male with follows in the office with Dr. Boston with multiple comorbid conditions. The patient was being cleared for preoperative clearance prior to hip surgery and was found to have abnormal stress testing. He underwent coronary angiogram which showed calcified left main, severe distal left main stenosis involving the ostium of the LAD and left circumflex as well as mild disease in the right RCA. The patient therefore underwent off-pump CABG with VERGARA to LAD and left radial artery to obtuse marginal patient was interviewed and examined sitting up in the recliner chair. He states he is feeling much better today. He denies any chest pain or pressure. No difficulty breathing. GENERAL: Well-appearing, well-nourished and in no acute distress. NECK: Supple without JVD or thyromegaly. LUNGS: Breath sounds diminished to auscultation bilaterally. Respiration equal and unlabored. No wheezes, rales or rhonchi. HEART: Regular rate and rhythm without murmurs, rubs or gallops. S1 and S2 heard. EXTREMITIES: Normal range of motion, mild edema. No clubbing or cyanosis. P eripheral pulses intact and strong. TELEMETRY: sinus rhythm overnight with no arrhythmias IMPRESSION: Coronary artery disease with left main disease Status post CABG 2 Hypertension Hyperlipidemia Peripheral vascular disease with previous aortobifemoral bypass Obstructive sleep apnea on home CPAP Diabetes mellitus type 2 Current tobacco use and dependence PLAN: continue supportive treatment Aggressive pulmonary hygiene and early ambulation Further recommendations based upon clinical course I am dictating on behalf of Dr Wliman Noguera's history/physical and assessment/plan. Objective - Vital Signs Vital signs: Vital Signs Temp 99.4 F 11/10/23 04:00 Pulse 80 11/10/23 11:39 Resp 16 11/10/23 11:00 BP 124/76 11/10/23 11:00 Pulse Ox 96 11/10/23 10:00 FiO2 40 11/08/23 21:21 Intake & Output 11/09/23 11/10/23 11/10/23 18:59 06:59 18:59 Intake Total 606.200 553.341 184 Output Total 620 1155 270 Balance -13.800 -601.659 -86 Weight 104.6 kg 107.6 kg Intake: IV 600 552 184 Sodium Chloride 0.9% 1, 510 480 160 000 ml @ 20 mls/hr IV . Q24H [facility] Rx#:[id number] pressure bag 90 72 24 Intake, IV Titration 6.200 1.341 0 Amount Insulin Regular 100 unit 6.200 1.341 0 In Sodium Chloride 0.9% 100 ml @ Per Protocol IV .Q0M [facility] Rx#:[id number] Output: Chest Tube Drainage 245 280 0 Chest Tube Left 95 130 0 Mediastinal 150 150 0 Urine 375 875 270 Other: Voiding Method Indwelling Catheter Indwelling Catheter ABP, PAP, CO, CI - Last Documented Arterial Blood Pressure 102/58 Pulmonary Artery Pressure 21/8 Cardiac Output 7.2 Cardiac Index 3.2 - Labs CBC & Chem 7: 11/10/23 05:19 11/10/23 05:19 Labs: Abnormal Lab Results - Last 24 Hours (Table) 11/09/23 11/09/23 11/09/23 Range/Units 14:20 19:08 20:03 WBC (3.8-10.6) k/uL MCV (80.0-100.0) fL Plt Count (150-450) k/uL Neutrophils # (1.3-7.7) k/uL Sodium (137-145) mmol/L Carbon Dioxide (22-30) mmol/L Creatinine (0.66-1.25) mg/dL Glucose (74-99) mg/dL POC Glucose (mg/dL) 133 H 132 H 137 H (70-110) mg/dL Calcium (8.4-10.2) mg/dL Total Protein (6.3-8.2) g/dL Albumin (3.5-5.0) g/dL 11/09/23 11/09/23 11/10/23 Range/Units 21:04 22:06 04:13 WBC (3.8-10.6) k/uL MCV (80.0-100.0) fL Plt Count (150-450) k/uL Neutrophils # (1.3-7.7) k/uL Sodium (137-145) mmol/L Carbon Dioxide (22-30) mmol/L Creatinine (0.66-1.25) mg/dL Glucose (74-99) mg/dL POC Glucose (mg/dL) 116 H 116 H 122 H (70-110) mg/dL Calcium (8.4-10.2) mg/dL Total Protein (6.3-8.2) g/dL Albumin (3.5-5.0) g/dL 11/10/23 11/10/23 11/10/23 Range/Units 05:19 05:19 05:52 WBC 11.4 H (3.8-10.6) k/uL MCV 105.1 H (80.0-100.0) fL Plt Count 142 L (150-450) k/uL Neutrophils # 8.8 H (1.3-7.7) k/uL Sodium 133 L (137-145) mmol/L Carbon Dioxide 19 L (22-30) mmol/L Creatinine 0.62 L (0.66-1.25) mg/dL Glucose 107 H (74-99) mg/dL POC Glucose (mg/dL) 114 H (70-110) mg/dL Calcium 8.1 L (8.4-10.2) mg/dL Total Protein 5.6 L (6.3-8.2) g/dL Albumin 3.3 L (3.5-5.0) g/dL 11/10/23 11/10/23 11/10/23 Range/Units 08:29 09:50 12:12 WBC (3.8-10.6) k/uL MCV (80.0-100.0) fL Plt Count (150-450) k/uL Neutrophils # (1.3-7.7) k/uL Sodium (137-145) mmol/L Carbon Dioxide (22-30) mmol/L Creatinine (0.66-1.25) mg/dL Glucose (74-99) mg/dL POC Glucose (mg/dL) 156 H 155 H 125 H (70-110) mg/dL Calcium (8.4-10.2) mg/dL Total Protein (6.3-8.2) g/dL Albumin (3.5-5.0) g/dL Microbiology - Last 24 Hours (Table) 11/07/23 16:34 Nasal Screen MRSA/MSSA - Final Nasal Swab
[2023-11-10] MEDS ORDERED: Magnesium Replacement Protocol 1 EACH MISC MISCELLANE PRN (13:48)
[2023-11-10] MEDS: MAGNESIUM SULFATE-D5W PMX 1 GM in DEXTROSE/WATER 1 100ML.BAG IVPB SCH (14:13)
[2023-11-10 16:16] LABS: Glucose,Whole Blood 155 mg/dL (70-110)
--- NOTE | 2023-11-10 18:36 | P.PN ---
Subjective Progress Note Date: 11/10/23 68-year old male patient, past medical history diabetes, tobacco use and dependence 1 pack/day, hyperlipidemia, peripheral vascular disease status post aortobifemoral bypass, obstructive sleep apnea with home CPAP, diabetes mellitus type 2, history of prostate cancer s/p radiation, history of DVT in the right leg many years ago. Patient was recently in the office for preop clearance for left total hip arthroplasty. Patient underwent a stress test as part of the workup and was found to have a poor exercise tolerance with more than [address] segment depression. Patient had no previous obstructive CAD. Patient was advised to undergo cardiac catheterization which was performed yesterday. Cardiac catheterization revealed calcified left main, severe distal left main stenosis involving the ostium of the LAD and left circumflex, mild disease in the mid right, elevated LVEDP. --Patient was advised for CABG and was evaluated by cardiothoracic surgery. Workup and surgery has been scheduled. Chest x-ray: Mid right lower lobe infiltrate. Correlate for atelectasis or pneumonia. COPD. Carotid Doppler revealed no evidence of hemodynamically significant stenosis. Laboratory studies: Hemoglobin 15.6. Sodium 138, potassium 3.9, BUN 17 creatinine 0.59. Hemoglobin A1c 7.5. Cholesterol 119, triglycerides 115, LDL 56 and HDL 39. TSH 1.49. Hepatitis negative. Patient is status post CABG; POD #2 Objective - Vital Signs Vital signs: Vital Signs Temp 99.4 F 11/10/23 04:00 Pulse 76 11/10/23 10:00 Resp 19 11/10/23 10:00 BP 119/74 11/10/23 10:00 Pulse Ox 96 11/10/23 10:00 FiO2 40 11/08/23 21:21 Intake & Output 11/09/23 11/10/23 11/10/23 18:59 06:59 18:59 Intake Total 606.200 553.341 184 Output Total 620 1155 230 Balance -13.800 -601.659 -46 Weight 104.6 kg 107.6 kg Intake: IV 600 552 184 Sodium Chloride 0.9% 1, 510 480 160 000 ml @ 20 mls/hr IV . Q24H [facility] Rx#:[id number] pressure bag 90 72 24 Intake, IV Titration 6.200 1.341 0 Amount Insulin Regular 100 unit 6.200 1.341 0 In Sodium Chloride 0.9% 100 ml @ Per Protocol IV .Q0M [facility] Rx#:[id number] Output: Chest Tube Drainage 245 280 0 Chest Tube Left 95 130 0 Mediastinal 150 150 0 Urine 375 875 230 Other: Voiding Method Indwelling Catheter Indwelling Catheter ABP, PAP, CO, CI - Last Documented Arterial Blood Pressure 102/58 Pulmonary Artery Pressure 21/8 Cardiac Output 7.2 Cardiac Index 3.2 - Exam No acute distress, oriented 3. HEENT examination is grossly unremarkable. Mucous membranes are moist. No oral lesions. Neck supple. Full range of motion. No adenopathy thyromegaly or neck vein distention. Cardiovascular examination reveals regular rhythm rate. S1-S2 normal. No S3 or S4. No discernible murmur noted. Heart rate 51 bpm. Lungs reveal clear breath sounds. Breath sounds are equal bilaterally. No adventitious lung sounds including wheezes rhonchi or crackles. Room air saturation is 96%. Abdomen soft bowel sounds are heard. No masses or tenderness. Extremities are intact. No cyanosis clubbing or edema. Skin is without rash or lesion. Neurologic examination is brief but nonfocal. - Labs CBC & Chem 7: 11/10/23 05:19 11/10/23 05:19 Labs: Abnormal Lab Results - Last 24 Hours (Table) 11/09/23 11/09/23 11/09/23 Range/Units 11:46 14:20 19:08 WBC (3.8-10.6) k/uL MCV (80.0-100.0) fL Plt Count (150-450) k/uL Neutrophils # (1.3-7.7) k/uL Sodium (137-145) mmol/L Carbon Dioxide (22-30) mmol/L Creatinine (0.66-1.25) mg/dL Glucose (74-99) mg/dL POC Glucose (mg/dL) 124 H 133 H 132 H (70-110) mg/dL Calcium (8.4-10.2) mg/dL Total Protein (6.3-8.2) g/dL Albumin (3.5-5.0) g/dL 11/09/23 11/09/23 11/09/23 Range/Units 20:03 21:04 22:06 WBC (3.8-10.6) k/uL MCV (80.0-100.0) fL Plt Count (150-450) k/uL Neutrophils # (1.3-7.7) k/uL Sodium (137-145) mmol/L Carbon Dioxide (22-30) mmol/L Creatinine (0.66-1.25) mg/dL Glucose (74-99) mg/dL POC Glucose (mg/dL) 137 H 116 H 116 H (70-110) mg/dL Calcium (8.4-10.2) mg/dL Total Protein (6.3-8.2) g/dL Albumin (3.5-5.0) g/dL 11/10/23 11/10/23 11/10/23 Range/Units 04:13 05:19 05:19 WBC 11.4 H (3.8-10.6) k/uL MCV 105.1 H (80.0-100.0) fL Plt Count 142 L (150-450) k/uL Neutrophils # 8.8 H (1.3-7.7) k/uL Sodium 133 L (137-145) mmol/L Carbon Dioxide 19 L (22-30) mmol/L Creatinine 0.62 L (0.66-1.25) mg/dL Glucose 107 H (74-99) mg/dL POC Glucose (mg/dL) 122 H (70-110) mg/dL Calcium 8.1 L (8.4-10.2) mg/dL Total Protein 5.6 L (6.3-8.2) g/dL Albumin 3.3 L (3.5-5.0) g/dL 11/10/23 11/10/23 11/10/23 Range/Units 05:52 08:29 09:50 WBC (3.8-10.6) k/uL MCV (80.0-100.0) fL Plt Count (150-450) k/uL Neutrophils # (1.3-7.7) k/uL Sodium (137-145) mmol/L Carbon Dioxide (22-30) mmol/L Creatinine (0.66-1.25) mg/dL Glucose (74-99) mg/dL POC Glucose (mg/dL) 114 H 156 H 155 H (70-110) mg/dL Calcium (8.4-10.2) mg/dL Total Protein (6.3-8.2) g/dL Albumin (3.5-5.0) g/dL Microbiology - Last 24 Hours (Table) 11/07/23 16:34 Nasal Screen MRSA/MSSA - Final Nasal Swab Assessment and Plan Assessment: Coronary artery disease with left main disease Hypertension Hyperlipidemia Peripheral vascular disease with previous aortobifemoral bypass Obstructive sleep apnea on home CPAP Diabetes mellitus type 2 Prostate cancer in 2019 status post radiation Current tobacco use and dependence Plan: Continue patient's home cardiac medications Patient is status post CABG x 2 with VERGARA to LAD and left radial artery to obtuse marginal, endovascular radial artery harvest, DALILA by anesthesia, POD #1 -- Patient was successfully extubated last night -Thoracic surgery recommending to start low-dose oral calcium channel shelly for radial artery spasm prophylaxis; titrate beta-blockers as tolerated; patient will remain on aspirin, statins, Plavix and beta-shelly
[2023-11-10 20:16] LABS: Glucose,Whole Blood 126 mg/dL (70-110)
[2023-11-11 05:41] LABS: Glucose,Whole Blood 119 mg/dL (70-110)
[2023-11-11 06:08] LABS: Basophils % (A) 0 %; Eosinophils # (A) 0.1 k/uL (0-0.7); Eosinophils % (A) 2 %; HGB 13.5 gm/dL (13.0-17.5); Lymphocytes % (A) 11 %; MCH 33.6 pg (25.0-35.0); MCHC 32.9 g/dL (31.0-37.0); Macrocytosis Slight; Mean Platelet Volume 7.5; Monocytes # (A) 0.8 k/uL (0-1.0); Monocytes % (A) 9 %; Neutrophils # (A) 6.8 k/uL (1.3-7.7); Neutrophils % (A) 76 %; Platelet Count 147 k/uL (150-450); RBC 4.01 m/uL (4.30-5.90); RDW 13.4 % (11.5-15.5)
[2023-11-11 06:21] LABS: ALT 13 U/L (4-49); AST 41 U/L (17-59); African American GFR (CKD) >90 (>60 ml/min/1.73 sqM); Albumin 2.8 g/dL (3.5-5.0); Alkaline Phosphatase 63 U/L (38-126); Anion Gap 5 mmol/L; Blood Urea Nitrogen 12 mg/dL (9-20); Calcium 8.1 mg/dL (8.4-10.2); Carbon Dioxide 22 mmol/L (22-30); Chloride 109 mmol/L (98-107); Glucose 123 mg/dL (74-99); Magnesium 1.8 mg/dL (1.6-2.3); Non-African American GFR(CKD) >90 (>60 ml/min/1.73 sqM); Potassium 3.6 mmol/L (3.5-5.1); Sodium 136 mmol/L (137-145); Total Bilirubin 0.7 mg/dL (0.2-1.3); Total Protein 5.3 g/dL (6.3-8.2)
--- NOTE | 2023-11-11 07:26 | XR ---
EXAMINATION TYPE: XR chest 2V DATE OF EXAM: 11/11/2023 6:32 AM CLINICAL INDICATION:Male, 68 years old with history of post cardiac surgery; COMPARISON: Chest radiograph from one day prior. TECHNIQUE: XR chest 2V Frontal view of the chest. FINDINGS: Lungs/Pleura: There is no evidence of pleural effusion, focal consolidation, or pneumothorax. Pulmonary vascularity: Unremarkable. Heart/mediastinum: Cardiomediastinal silhouette is unremarkable. Post valve repair changes. Musculoskeletal: No acute osseous pathology. Midline sternotomy wires are noted. IMPRESSION: Improved aeration of the lungs.
--- NOTE | 2023-11-11 07:32 | P.PN ---
Subjective Progress Note Date: 11/11/23 Principal diagnosis: Coronary artery disease. Pulmonary consult dated November 08, 2023. 68-year-old male who was seen by cardiology, for chest discomfort. The patient has a history of diabetes, chronic tobacco use, hyperlipidemia, and peripheral vascular disease. He had a previous aortobifemoral bypass. The patient had a stress test, for preoperative clearance, and was noted to have ST-T wave changes. For that reason, the patient underwent cardiac catheterization, was found to have significant coronary disease. The patient is scheduled for bypass grafting, with Dr. Rosales today. The patient is a smoker, having smoked for 52 years. I did look at his lung function. His FEV1 is 1.80 L which is 53% of predicted. Hence, he has moderately severe COPD. He does have shortness of breath on exertion. Currently he is on room air. He is getting saline at 75 cc an hour. His cardiac catheterization, revealed a calcified left main coronary artery, severe distal left main stenosis involving the ostium of the LAD and left circumflex, and mild disease in the right coronary artery. Chest CT showed extensive three-vessel coronary artery calcification. There is also changes of COPD/emphysema. Most recent labs include a white count 7.1, hemoglobin 15.6, hematocrit 48.2, and a platelet count of 194,000. Sodium 138, potassium 3.9, chlorides 110, CO2 23, BUN 17, creatinine 0.59. Glucose is 91. Progress note dated 11/09/2023. 68-year-old male postop day #1, status post two-vessel bypass surgery. Currently, the patient is seen in room 267. He appears to be doing relatively well. He is currently on 4 L of oxygen. Is getting saline at 40 mL an hour, insulin drip at 0.5 units an hour.Current labs include a white count 11.6, he will 14.6, hematocrit 44.8, and a platelet count of 152,000. Sodium 135, potassium 3.9, chloride 107, bicarbonate 20, BUN 10, creatinine 0.5. The rest of the comprehensive metabolic profile looks good.Chest x-ray shows bibasilar atelectasis, small pleural effusions, and some mild interstitial edema. Progress note dated November 10, 2023. 68-year-old male who is seen today in room 267. He is status post two-vessel bypass surgery, postop day number, #2. The patient appears to be doing relatively well. Currently, he is on 2 L of oxygen. He is getting saline at KVO. He is on an insulin drip at 1.5 units an hour. According to the nurse, Roula, he had an uneventful night. Current laboratory data includes a white count 11.4, hemoglobin 15.5, hematocrit 48.4, and a platelet count of 142,000. Sodium 133, potassium 4.2, chlorides 107, CO2 19, BUN and creatinine were 14 and 0.62. Glucose 155. Albumin 3.3. Chest x-ray shows trace bilateral pleural effusions. Progress note dated November 11, 2023. 68-year-old male seen today in room 370. The patient is currently on 2 L of oxygen. No IV fluids. The patient is doing well, without any particular complaints. The patient is postoperative day #3. Current labs include a white count of 9, hemoglobin 13.5, hematocrit 41, and a platelet count of 147,000. Sodium 136, potassium 3.6, chlorides 109, CO2 22, BUN 12, creatinine 0.63. Glucose is 123. Calcium 8.1. Albumin 2.8. Chest x-ray shows improved lung aeration. Objective - Vital Signs Vital signs: Vital Signs Temp 98.2 F 11/11/23 04:29 Pulse 75 11/11/23 04:29 Resp 22 11/11/23 04:29 BP 132/81 11/11/23 04:29 Pulse Ox 94 L 11/11/23 04:29 FiO2 40 11/08/23 21:21 Intake & Output 11/10/23 11/11/23 11/11/23 18:59 06:59 18:59 Intake Total 502 20 Output Total 745 600 Balance -243 -580 Intake: IV 184 20 Invasive Line 5 20 Sodium Chloride 0.9% 1, 160 000 ml @ 20 mls/hr IV . Q24H [facility] Rx#:[id number] pressure bag 24 Intake, IV Titration 200 Amount Insulin Regular 100 unit 0 In Sodium Chloride 0.9% 100 ml @ Per Protocol IV .Q0M [facility] Rx#:[id number] Magnesium Sulfate-D5w Pmx 200 1 gm In Dextrose/Water 1 100ml.bag @ 100 mls/hr IVPB Q1H [facility] Rx#: [id number] Oral 118 Output: Chest Tube Drainage 0 Chest Tube Left 0 Mediastinal 0 Urine 745 600 Other: Voiding Method Indwelling Catheter Toilet # Voids 1 ABP, PAP, CO, CI - Last Documented Arterial Blood Pressure 102/58 Pulmonary Artery Pressure 21/8 Cardiac Output 7.2 Cardiac Index 3.2 - Exam No acute distress, oriented 3.Currently on 2 L. Saturations are 94 %. HEENT examination is grossly unremarkable. Mucous membranes are moist. No oral lesions. Neck supple. Full range of motion. No adenopathy thyromegaly or neck vein distention. Cardiovascular examination reveals regular rhythm rate. S1-S2 normal. No S3 or S4. No discernible murmur noted. Heart rate 75 bpm. Lungs reveal scattered bilateral rhonchi. No wheezes or crackles. Breath sounds equal bilaterally. Abdomen soft bowel sounds are heard. No masses or tenderness. Extremities are intact. No cyanosis clubbing or edema. Skin is without rash or lesion. Neurologic examination is brief but nonfocal. - Labs CBC & Chem 7: 11/11/23 05:35 11/11/23 05:35 Labs: Abnormal Lab Results - Last 24 Hours (Table) 11/10/23 11/10/23 11/10/23 Range/Units 08:29 09:50 12:12 RBC (4.30-5.90) m/uL MCV (80.0-100.0) fL Plt Count (150-450) k/uL Sodium (137-145) mmol/L Chloride (98-107) mmol/L Creatinine (0.66-1.25) mg/dL Glucose (74-99) mg/dL POC Glucose (mg/dL) 156 H 155 H 125 H (70-110) mg/dL Calcium (8.4-10.2) mg/dL Total Protein (6.3-8.2) g/dL Albumin (3.5-5.0) g/dL 11/10/23 11/10/23 11/11/23 Range/Units 16:14 20:12 05:35 RBC 4.01 L (4.30-5.90) m/uL MCV 102.0 H (80.0-100.0) fL Plt Count 147 L (150-450) k/uL Sodium (137-145) mmol/L Chloride (98-107) mmol/L Creatinine (0.66-1.25) mg/dL Glucose (74-99) mg/dL POC Glucose (mg/dL) 155 H 126 H (70-110) mg/dL Calcium (8.4-10.2) mg/dL Total Protein (6.3-8.2) g/dL Albumin (3.5-5.0) g/dL 11/11/23 11/11/23 Range/Units 05:35 05:35 RBC (4.30-5.90) m/uL MCV (80.0-100.0) fL Plt Count (150-450) k/uL Sodium 136 L (137-145) mmol/L Chloride 109 H (98-107) mmol/L Creatinine 0.63 L (0.66-1.25) mg/dL Glucose 123 H (74-99) mg/dL POC Glucose (mg/dL) 119 H (70-110) mg/dL Calcium 8.1 L (8.4-10.2) mg/dL Total Protein 5.3 L (6.3-8.2) g/dL Albumin 2.8 L (3.5-5.0) g/dL Assessment and Plan Assessment: Postop day #3, status post two-vessel bypass grafting. Routine postoperative ventilator management. Significant coronary artery disease, with anticipated bypass surgery, November 08, 2023. 52 years of tobacco use, 1 pack a day, with moderately severe COPD, and an FEV1 percent that is 53. FEV1 that is 1.80 L, which predicts a no/low increased operative risk for general anesthesia. History of diabetes mellitus. History of hypertension. History of hyperlipidemia. Peripheral vascular occlusive disease. Plan: Plan dated November 08, 2023. The patient is seen on the general medical floor. He is seen today in room 369. He is planning to undergo surgery, later today. I looked at his lung function. His FEV1 percent is 53. That would mean that he has moderately severe COPD. He smoked for 52 years. His FEV1 was 1.80 L, putting him in the no low increased operative risk category. Today, we explained our role in patients undergoing bypass. Initially, the plan is to get him off the ventilator soon as possible. Secondly, to see him every day, and make sure that he does not develop any pulmonary issues, after surgery. In that regard, we pointed out to him that incentive spirometry is very important. Plan dated 11/09/2023. The patient is seen today in room 267. Ascending the chair next to his hospital bed. He is currently on 4 L of oxygen. Is also getting saline at 40 mL now, and insulin drip at 0.5 units an hour. He status post two-vessel bypass grafti ng. The patient appears be doing well. We recommend deep breathing, coughing, and clearing her secretions. We also recommend hourly use of the incentive spirometer. We will continue to follow the patient, make recommendations along the way. Prognosis is guarded. Plan dated November 10, 2023. The patient appears to be doing relatively well. He is seen today in room 267. He has been weaned down to 2 L. Saturations were in the mid to high 90s. He continues on saline at KVO. He is on an insulin drip at 1.5 units an hour. Labs, x-rays, and medications are reviewed. No additional recommendations are made at this time. We encourage deep breathing, coughing, clearing of secretions. We also recommend hourly use of the incentive spirometer. We will continue to follow the patient, make recommendations along the way. Plan dated November 11, 2023. The patient is seen today in room 370. He continues on 2 L of oxygen. No IV fluids. Clinically, he is doing much better. His insulin drip has been discontinued. Labs, x-rays, and medications are all reviewed. We will continue to follow make recommendations along the way. We again continue to encourage him to deep breathe, cough, clear secretions, and use the incentive spirometer, every hour. Time with Patient: Less than 30
--- NOTE | 2023-11-11 07:33 | P.PN ---
Subjective Progress Note Date: 11/11/23 Principal diagnosis: Coronary artery disease with left main disease, unstable angina. History of hypertension, hyperlipidemia, peripheral arterial disease with previous aorto bifemoral bypass, obstructive sleep apnea with home CPAP use, type 2 diabetes, prostate cancer in 2020 status post radiation, current tobacco dependence, arthritis, previous history of COVID POD #3 off-pump CABG x 2 with VERGARA to LAD and left radial artery to obtuse marginal, endovascular radial artery harvest, DALILA by anesthesia The patient was seen and examined this morning sitting up in a recliner on the cardiac stepdown unit in no acute distress. Remains in sinus rhythm, hemodynamically stable. States post surgical pain is better controlled today, rest of his lines and tubes were discontinued yesterday. Denies shortness of breath. Currently on 2 L nasal cannula with oxygen saturation in the mid 90s, able to achieve 1750 mL on his incentive spirometry. Patient has been ambulatory in the hallway, received first postsurgical shower this morning, tolerated well. No other new concerns. Objective - Vital Signs Vital signs: Vital Signs Temp 98.2 F 11/11/23 04:29 Pulse 75 11/11/23 04:29 Resp 22 11/11/23 04:29 BP 132/81 11/11/23 04:29 Pulse Ox 94 L 11/11/23 04:29 FiO2 40 11/08/23 21:21 Intake & Output 11/10/23 11/11/23 11/11/23 18:59 06:59 18:59 Intake Total 502 20 Output Total 745 600 Balance -243 -580 Intake: IV 184 20 Invasive Line 5 20 Sodium Chloride 0.9% 1, 160 000 ml @ 20 mls/hr IV . Q24H [facility] Rx#:[id number] pressure bag 24 Intake, IV Titration 200 Amount Insulin Regular 100 unit 0 In Sodium Chloride 0.9% 100 ml @ Per Protocol IV .Q0M [facility] Rx#:[id number] Magnesium Sulfate-D5w Pmx 200 1 gm In Dextrose/Water 1 100ml.bag @ 100 mls/hr IVPB Q1H [facility] Rx#: [id number] Oral 118 Output: Chest Tube Drainage 0 Chest Tube Left 0 Mediastinal 0 Urine 745 600 Other: Voiding Method Indwelling Catheter Toilet # Voids 1 ABP, PAP, CO, CI - Last Documented Arterial Blood Pressure 102/58 Pulmonary Artery Pressure 21/8 Cardiac Output 7.2 Cardiac Index 3.2 - Exam CONSTITUTIONAL: Appears comfortable, cooperative, no acute distress RESPIRATORY: Lungs sounds diminished bilaterally. Respirations even, nonlabored. Currently on 2 L nasal cannula with oxygen saturation 94%. Able to achieve 1750 mL on incentive spirometry. Strong cough. CARDIOVASCULAR: S1, S2 present. Regular rate and rhythm, sinus rhythm on telemetry. Sternum stable. Palpable peripheral pulses bilaterally. No edema present. No calf pain or tenderness noted. Heart hugger in place with patient demonstrating appropriate use. Antiembolism stockings, SCDs present. GASTROINTESTINAL: Abdomen soft, nontender, nondistended. Active bowel sounds present 4 quadrants. Tolerating diet. Positive flatus GENITOURINARY: Continues to void, per nursing patient did have some clots in his urine last night, not unexpected given his history of prostate cancer. Output 1345 mL in the last 24 hours INTEGUMENTARY: Skin is warm and dry with evidence of good perfusion. Anterior chest incision well approximated and covered with dry intact dressing. Left radial artery harvest site well approximated without redness or drainage. NEUROLOGIC: Cranial nerves II through XII intact MUSKULOSKELETAL: Able to move all extremities, strength equal bilaterally, gait normal PSYCHIATRIC: Alert and oriented to person place and time, appropriate affect, intact judgment and insight - Allied health notes Allied health notes reviewed: nursing - Labs CBC & Chem 7: 11/11/23 05:35 11/11/23 05:35 Labs: Abnormal Lab Results - Last 24 Hours (Table) 11/10/23 11/10/23 11/10/23 Range/Units 08:29 09:50 12:12 RBC (4.30-5.90) m/uL MCV (80.0-100.0) fL Plt Count (150-450) k/uL Sodium (137-145) mmol/L Chloride (98-107) mmol/L Creatinine (0.66-1.25) mg/dL Glucose (74-99) mg/dL POC Glucose (mg/dL) 156 H 155 H 125 H (70-110) mg/dL Calcium (8.4-10.2) mg/dL Total Protein (6.3-8.2) g/dL Albumin (3.5-5.0) g/dL 11/10/23 11/10/23 11/11/23 Range/Units 16:14 20:12 05:35 RBC 4.01 L (4.30-5.90) m/uL MCV 102.0 H (80.0-100.0) fL Plt Count 147 L (150-450) k/uL Sodium (137-145) mmol/L Chloride (98-107) mmol/L Creatinine (0.66-1.25) mg/dL Glucose (74-99) mg/dL POC Glucose (mg/dL) 155 H 126 H (70-110) mg/dL Calcium (8.4-10.2) mg/dL Total Protein (6.3-8.2) g/dL Albumin (3.5-5.0) g/dL 11/11/23 11/11/23 Range/Units 05:35 05:35 RBC (4.30-5.90) m/uL MCV (80.0-100.0) fL Plt Count (150-450) k/uL Sodium 136 L (137-145) mmol/L Chloride 109 H (98-107) mmol/L Creatinine 0.63 L (0.66-1.25) mg/dL Glucose 123 H (74-99) mg/dL POC Glucose (mg/dL) 119 H (70-110) mg/dL Calcium 8.1 L (8.4-10.2) mg/dL Total Protein 5.3 L (6.3-8.2) g/dL Albumin 2.8 L (3.5-5.0) g/dL - Imaging and Cardiology Chest x-ray: report reviewed, image reviewed Assessment and Plan Assessment: Coronary artery disease with left main disease, unstable angina, status post 2V off pump CABG Hypertension Hyperlipidemia, Treated, cholesterol 119, LDL 56 Peripheral arterial disease with previous aorto bifemoral bypass Obstructive sleep apnea with home CPAP use Type 2 diabetes, Preoperative hemoglobin A1c 7.5% Prostate cancer in 2020 status post radiation, currently on flomax outpatient Current tobacco dependence Moderate COPD, preoperative FEV1 53% of predicted Arthritis Previous history of COVID Plan: Continue to maximize medical therapy with aspirin, statin, Plavix, beta shelly. Will increase beta shelly therapy as tolerated Continue oral calcium channel shelly for radial artery spasm prophylaxis Wean oxygen as tolerated, encourage incentive spirometry use 10 times every hour while awake, bronchodilators per pulmonology Increase activity, ambulate as tolerated. PT/OT/cardiac rehab consulted Will monitor daily labs and x-rays, electrolyte replacement per protocol GI/DVT prophylaxis Insulin management per internal medicine Pain control per current medication regimen Continue to record strict accurate intake and output Continue home dose of Flomax Daily weights Smoking cessation counseling education provided, patient strongly encouraged complete smoking cessation. Will be provided with 1 [employer] quit now helpline upon discharge Discharge planning in progress, anticipate discharge to home with home care in the next 24 to 48 hours More recommendations to follow
[2023-11-11] MEDS: MAGNESIUM HYDROXIDE 2,400 MG/30 ML CUP PO PRN (08:13)
[2023-11-11] MEDS: POTASSIUM BICARBONATE/CIT AC 20 MEQ TABLET.EFF PO ONE (09:04)
[2023-11-11] MEDS: ALBUMIN HUMAN 25% 50 ML in EMPTY BAG 1 BAG IVPB ONE ×2 (10:27→10:28)
[2023-11-11] MEDS: ALBUMIN HUMAN 5% 500 ML in EMPTY BAG 1 BAG IVPB ONE ×6 (10:28→10:29)
[2023-11-11] MEDS: MANNITOL 25% 12.5 GM/50 ML VIAL IV ONE ×2 (10:29)
[2023-11-11] MEDS: CALCIUM CHLORIDE 100 MG/ML 10 ML SYRINGE IVP ONE (10:29)
[2023-11-11] MEDS: LACTATED RINGERS 1,000 ML IV SCH (10:30)
[2023-11-11] MEDS: CHLORHEXIDINE GLUCONATE 15 ML CUP MUCOUS MEM ONE (10:30)
[2023-11-11] MEDS: MAGNESIUM SULFATE 16.24 MEQ in EMPTY SYRINGE 1 SYR IV ONE (10:30)
[2023-11-11] MEDS: HEPARIN SODIUM 1,000 UN/ML (10ML VL) IV ONE (10:30)
[2023-11-11] MEDS: CLEVIDIPINE BUTYRATE 25 MG in EMPTY BAG 1 BAG IV SCH (10:30)
[2023-11-11] MEDS: PROTAMINE SULFATE 250 MG in EMPTY BAG 1 BAG IV ONE (10:31)
[2023-11-11] MEDS: SODIUM BICARB 8.4% 50 ML SYR (1 MEQ/ML) IV ONE (10:31)
[2023-11-11] MEDS: TRANEXAMIC ACID 2,000 MG in SODIUM CHLORIDE 0.9% 80 ML IV ONE ×2 (10:31)
[2023-11-11] MEDS: NITROGLYCERIN-D5W PMX 25 MG/250 ML BTL IV ONE (10:32)
[2023-11-11] MEDS: NITROGLYCERIN-D5W PMX 50 MG in DEXTROSE/WATER 1 250ML.BAG IV SCH (10:32)
[2023-11-11] MEDS: PHENYLEPHRINE 40 MG in SODIUM CHLORIDE 0.9% 250 ML IV ONE (10:32)
[2023-11-11] MEDS: PHENYLEPHRINE 10 MG/ML VIAL IV ONE (10:32)
[2023-11-11] MEDS: PROTAMINE SULFATE 10 MG/ML 25 ML VIAL IV ONE (10:32)
--- NOTE | 2023-11-11 11:19 | P.PN ---
Subjective Progress Note Date: 11/11/23 The patient is 68-year-old male with follows in the office with Dr. Boston with multiple comorbid conditions. The patient was being cleared for preoperative clearance prior to hip surgery and was found to have abnormal stress testing. He underwent coronary angiogram which showed calcified left main, severe distal left main stenosis involving the ostium of the LAD and left circumflex as well as mild disease in the right RCA. The patient therefore underwent off-pump CABG with VERGARA to LAD and left radial artery to obtuse marginal the patient has been downgraded to 3 S. He was interviewed and examined sitting up in the recliner chair. He states he has been able to walk the halls and is feeling well. His only complaint is back discomfort from the bed. GENERAL: Well-appearing, well-nourished and in no acute distress. NECK: Supple without JVD or thyromegaly. LUNGS: Breath sounds diminished to auscultation bilaterally. Respiration equal and unlabored. No wheezes, rales or rhonchi. HEART: Regular rate and rhythm without murmurs, rubs or gallops. S1 and S2 heard. EXTREMITIES: Normal range of motion, no edema. No clubbing or cyanosis. Peripheral pulses intact and strong. TELEMETRY: sinus rhythm overnight with no arrhythmias IMPRESSION: Coronary artery disease with left main disease Status post CABG 2 Hypertension Hyperlipidemia Peripheral vascular disease with previous aortobifemoral bypass Obstructive sleep apnea on home CPAP Diabetes mellitus type 2 Current tobacco use and dependence PLAN: continue supportive treatment follow-up with primary insurance producer Dr. Boston in one week post discharge I am dictating on behalf of Dr Wilman Noguera's history/physical and assessment/plan. Objective - Vital Signs Vital signs: Vital Signs Temp 97.4 F L 11/11/23 08:00 Pulse 84 11/11/23 11:11 Resp 20 11/11/23 08:00 BP 118/71 11/11/23 08:00 Pulse Ox 93 L 11/11/23 08:00 FiO2 40 11/08/23 21:21 Intake & Output 11/10/23 11/11/23 11/11/23 18:59 06:59 18:59 Intake Total 502 20 222 Output Total 745 600 100 Balance -243 -580 122 Intake: IV 184 20 Invasive Line 5 20 Sodium Chloride 0.9% 1, 160 000 ml @ 20 mls/hr IV . Q24H [facility] Rx#:[id number] pressure bag 24 Intake, IV Titration 200 Amount Insulin Regular 100 unit 0 In Sodium Chloride 0.9% 100 ml @ Per Protocol IV .Q0M [facility] Rx#:[id number] Magnesium Sulfate-D5w Pmx 200 1 gm In Dextrose/Water 1 100ml.bag @ 100 mls/hr IVPB Q1H [facility] Rx#: [id number] Oral 118 222 Output: Chest Tube Drainage 0 Chest Tube Left 0 Mediastinal 0 Urine 745 600 100 Other: Voiding Method Indwelling Catheter Toilet Urinal # Voids 1 ABP, PAP, CO, CI - Last Documented Arterial Blood Pressure 102/58 Pulmonary Artery Pressure 21/8 Cardiac Output 7.2 Cardiac Index 3.2 - Labs CBC & Chem 7: 11/11/23 05:35 11/11/23 05:35 Labs: Abnormal Lab Results - Last 24 Hours (Table) 11/10/23 11/10/23 11/10/23 Range/Units 12:12 16:14 20:12 RBC (4.30-5.90) m/uL MCV (80.0-100.0) fL Plt Count (150-450) k/uL Sodium (137-145) mmol/L Chloride (98-107) mmol/L Creatinine (0.66-1.25) mg/dL Glucose (74-99) mg/dL POC Glucose (mg/dL) 125 H 155 H 126 H (70-110) mg/dL Calcium (8.4-10.2) mg/dL Total Protein (6.3-8.2) g/dL Albumin (3.5-5.0) g/dL 11/11/23 11/11/23 11/11/23 Range/Units 05:35 05:35 05:35 RBC 4.01 L (4.30-5.90) m/uL MCV 102.0 H (80.0-100.0) fL Plt Count 147 L (150-450) k/uL Sodium 136 L (137-145) mmol/L Chloride 109 H (98-107) mmol/L Creatinine 0.63 L (0.66-1.25) mg/dL Glucose 123 H (74-99) mg/dL POC Glucose (mg/dL) 119 H (70-110) mg/dL Calcium 8.1 L (8.4-10.2) mg/dL Total Protein 5.3 L (6.3-8.2) g/dL Albumin 2.8 L (3.5-5.0) g/dL
[2023-11-11 11:26] LABS: Glucose,Whole Blood 124 mg/dL (70-110)
--- NOTE | 2023-11-11 15:00 | P.PN ---
Subjective Progress Note Date: 11/11/23 68-year old male patient, past medical history diabetes, tobacco use and dependence 1 pack/day, hyperlipidemia, peripheral vascular disease status post aortobifemoral bypass, obstructive sleep apnea with home CPAP, diabetes mellitus type 2, history of prostate cancer s/p radiation, history of DVT in the right leg many years ago. Patient was recently in the office for preop clearance for left total hip arthroplasty. Patient underwent a stress test as part of the workup and was found to have a poor exercise tolerance with more than [address] segment depression. Patient had no previous obstructive CAD. Patient was advised to undergo cardiac catheterization which was performed yesterday. Cardiac catheterization revealed calcified left main, severe distal left main stenosis involving the ostium of the LAD and left circumflex, mild disease in the mid right, elevated LVEDP. --Patient was advised for CABG and was evaluated by cardiothoracic surgery. Workup and surgery has been scheduled. Chest x-ray: Mid right lower lobe infiltrate. Correlate for atelectasis or pneumonia. COPD. Carotid Doppler revealed no evidence of hemodynamically significant stenosis. Laboratory studies: Hemoglobin 15.6. Sodium 138, potassium 3.9, BUN 17 creatinine 0.59. Hemoglobin A1c 7.5. Cholesterol 119, triglycerides 115, LDL 56 and HDL 39. TSH 1.49. Hepatitis negative. Patient is status post CABG; POD #2 11/11/2023 Patient is seen and evaluated and selective care unit; sitting up in the bedside chair; reports fair improvement and control of pain; no specific complaints repo rted Vital signs are stable with temperature of 98.2, pulse 75, respiration 22 and blood pressure 132/81 with O2 saturation 94% with FiO2 40% Lab review reveals a WBC of 9.0, hemoglobin of 13.5 and platelet count of 147, sodium 136, potassium of 3.6, BUNs/creatinine of 12/0.63 and blood glucose of 1 23 -Plan is to maximize medical therapy with aspirin, statin, Plavix and beta- blockers; plan to increase beta-shelly therapy as tolerated; continue with oral calcium channel blockers for radial artery spasm -- Patient to be evaluated by PT/OT/PMR Objective - Vital Signs Vital signs: Vital Signs Temp 97.4 F L 11/11/23 08:00 Pulse 75 11/11/23 08:00 Resp 20 11/11/23 08:00 BP 118/71 11/11/23 08:00 Pulse Ox 93 L 11/11/23 08:00 FiO2 40 11/08/23 21:21 Intake & Output 11/10/23 11/11/23 11/11/23 18:59 06:59 18:59 Intake Total 502 20 222 Output Total 745 600 100 Balance -243 -580 122 Intake: IV 184 20 Invasive Line 5 20 Sodium Chloride 0.9% 1, 160 000 ml @ 20 mls/hr IV . Q24H [facility] Rx#:[id number] pressure bag 24 Intake, IV Titration 200 Amount Insulin Regular 100 unit 0 In Sodium Chloride 0.9% 100 ml @ Per Protocol IV .Q0M [facility] Rx#:[id number] Magnesium Sulfate-D5w Pmx 200 1 gm In Dextrose/Water 1 100ml.bag @ 100 mls/hr IVPB Q1H [facility] Rx#: [id number] Oral 118 222 Output: Chest Tube Drainage 0 Chest Tube Left 0 Mediastinal 0 Urine 745 600 100 Other: Voiding Method Indwelling Catheter Toilet Urinal # Voids 1 ABP, PAP, CO, CI - Last Documented Arterial Blood Pressure 102/58 Pulmonary Artery Pressure 21/8 Cardiac Output 7.2 Cardiac Index 3.2 - Exam No acute distress, oriented 3. HEENT examination is grossly unremarkable. Mucous membranes are moist. No oral lesions. Neck supple. Full range of motion. No adenopathy thyromegaly or neck vein d istention. Cardiovascular examination reveals regular rhythm rate. S1-S2 normal. No S3 or S4. No discernible murmur noted. Heart rate 51 bpm. Lungs reveal clear breath sounds. Breath sounds are equal bilaterally. No adventitious lung sounds including wheezes rhonchi or crackles. Room air satu ration is 96%. Abdomen soft bowel sounds are heard. No masses or tenderness. Extremities are intact. No cyanosis clubbing or edema. Skin is without rash or lesion. Neurologic examination is brief but nonfocal. - Labs CBC & Chem 7: 11/11/23 05:35 11/11/23 05:35 Labs: Abnormal Lab Results - Last 24 Hours (Table) 11/10/23 11/10/23 11/10/23 Range/Units 12:12 16:14 20:12 RBC (4.30-5.90) m/uL MCV (80.0-100.0) fL Plt Count (150-450) k/uL Sodium (137-145) mmol/L Chloride (98-107) mmol/L Creatinine (0.66-1.25) mg/dL Glucose (74-99) mg/dL POC Glucose (mg/dL) 125 H 155 H 126 H (70-110) mg/dL Calcium (8.4-10.2) mg/dL Total Protein (6.3-8.2) g/dL Albumin (3.5-5.0) g/dL 11/11/23 11/11/23 11/11/23 Range/Units 05:35 05:35 05:35 RBC 4.01 L (4.30-5.90) m/uL MCV 102.0 H (80.0-100.0) fL Plt Count 147 L (150-450) k/uL Sodium 136 L (137-145) mmol/L Chloride 109 H (98-107) mmol/L Creatinine 0.63 L (0.66-1.25) mg/dL Glucose 123 H (74-99) mg/dL POC Glucose (mg/dL) 119 H (70-110) mg/dL Calcium 8.1 L (8.4-10.2) mg/dL Total Protein 5.3 L (6.3-8.2) g/dL Albumin 2.8 L (3.5-5.0) g/dL Assessment and Plan Assessment: Coronary artery disease with left main disease Hypertension Hyperlipidemia Peripheral vascular disease with previous aortobifemoral bypass Obstructive sleep apnea on home CPAP Diabetes mellitus type 2 Prostate cancer in 2020 status post radiation Current tobacco use and dependence Plan: Continue patient's home cardiac medications Patient is status post CABG x 2 with VERGARA to LAD and left radial artery to obtuse marginal, endovascular radial artery harvest, DALILA by anesthesia, POD #1 -- Patient was successfully extubated last night -Thoracic surgery recommending to start low-dose oral calcium channel shelly for radial artery spasm prophylaxis; titrate beta-blockers as tolerated; patient will remain on aspirin, statins, Plavix and beta-shelly
[2023-11-11 16:35] LABS: Glucose,Whole Blood 120 mg/dL (70-110)
[2023-11-11 19:53] LABS: Glucose,Whole Blood 121 mg/dL (70-110)
[2023-11-11] MEDS: ACETAMINOPHEN TAB 500 MG TAB PO PRN (20:32)
[2023-11-12 06:04] LABS: Glucose,Whole Blood 118 mg/dL (70-110)
--- NOTE | 2023-11-12 07:56 | XR ---
EXAMINATION TYPE: XR chest 2V DATE OF EXAM: 11/12/2023 COMPARISON: 11/11/2023 HISTORY: Shortness of breath TECHNIQUE: Frontal and lateral views of the chest are obtained. FINDINGS: Scattered senescent parenchymal changes noted. Hyperinflation compatible with COPD. No evidence for infiltrate. Linear atelectasis left lung base. Atelectasis right medial lung base. Th e lungs are otherwise essentially clear. Cardiac surgery changes. Heart size is stable. Mediastinal structures are stable and grossly unremarkable. No evidence for hilar prominence. Degenerative changes dorsal spine. IMPRESSION: 1. Linear atelectasis left lung base. Atelectasis right medial lung base. The lungs are otherwise ess entially clear. Cardiac surgery changes.
[2023-11-12 08:16] LABS: HGB 14.6 gm/dL (13.0-17.5); Hypochromasia Slight; MCH 33.3 pg (25.0-35.0); MCHC 31.8 g/dL (31.0-37.0); MCV 104.8 fL (80.0-100.0); Macrocytosis Slight; Mean Platelet Volume 7.7; Platelet Count 175 k/uL (150-450); RBC 4.39 m/uL (4.30-5.90); RDW 13.5 % (11.5-15.5); WBC 8.1 k/uL (3.8-10.6)
--- NOTE | 2023-11-12 08:17 | P.PN ---
Subjective Progress Note Date: 11/12/23 Principal diagnosis: Coronary artery disease with left main disease, unstable angina. History of hypertension, hyperlipidemia, peripheral arterial disease with previous aorto bifemoral bypass, obstructive sleep apnea with home CPAP use, type 2 diabetes, prostate cancer in 2020 status post radiation, current tobacco dependence, arthritis, previous history of COVID POD #4 off-pump CABG x 2 with VERGARA to LAD and left radial artery to obtuse marginal, endovascular radial artery harvest, DALILA by anesthesia The patient was seen and examined this morning sitting up in a recliner on the cardiac stepdown unit in no acute distress. Remains in sinus rhythm, hemodynamically stable. States post surgical pain is controlled. Denies shortness of breath. Currently on 2 L nasal cannula with oxygen saturation in the mid 90s, was 86% on room air, able to achieve 2500 mL on his incentive spirometry. Chest x-ray reviewed, labs pending. Patient has been ambulatory in the hallway. Would like to go home today. No other new concerns. Objective - Vital Signs Vital signs: Vital Signs Temp 98 F 11/12/23 04:00 Pulse 65 11/12/23 04:00 Resp 14 11/12/23 04:00 BP 97/58 11/12/23 04:00 Pulse Ox 91 L 11/12/23 04:00 FiO2 40 11/08/23 21:21 Intake & Output 11/11/23 11/12/23 11/12/23 18:59 06:59 18:59 Intake Total 702 120 Output Total 100 600 Balance 602 -480 Weight 104.6 kg 104.6 kg Intake: Oral 702 120 Output: Urine 100 600 Other: Voiding Method Urinal Toilet Urinal ABP, PAP, CO, CI - Last Documented Arterial Blood Pressure 102/58 Pulmonary Artery Pressure 21/8 Cardiac Output 7.2 Cardiac Index 3.2 - Exam CONSTITUTIONAL: Appears comfortable, cooperative, no acute distress RESPIRATORY: Lungs sounds diminished bilaterally. Respirations even, nonlabored. Currently on 2 L nasal cannula with oxygen saturation 91%. Able to achieve 2500 mL on incentive spirometry. Strong cough. CARDIOVASCULAR: S1, S2 present. Regular rate and rhythm, sinus rhythm on telemetry. Sternum stable. Palpable peripheral pulses bilaterally. Trace bilateral lower extremity edema present. No calf pain or tenderness noted. Heart hugger in place with patient demonstrating appropriate use. Antiembolism stockings, SCDs present. GASTROINTESTINAL: Abdomen soft, nontender, nondistended. Active bowel sounds present 4 quadrants. Tolerating diet. Positive flatus GENITOURINARY: Continues to void clear, yellow urine INTEGUMENTARY: Skin is warm and dry with evidence of good perfusion. Anterior chest incision well approximated. Left radial artery harvest site well approximated without redness or drainage. NEUROLOGIC: Cranial nerves II through XII intact MUSKULOSKELETAL: Able to move all extremities, strength equal bilaterally, gait normal PSYCHIATRIC: Alert and oriented to person place and time, appropriate affect, intact judgment and insight - Allied health notes Allied health notes reviewed: nursing - Labs CBC & Chem 7: 11/11/23 05:35 11/11/23 05:35 Labs: Abnormal Lab Results - Last 24 Hours (Table) 11/11/23 11/11/23 11/11/23 Range/Units 11:22 16:34 19:51 POC Glucose (mg/dL) 124 H 120 H 121 H (70-110) mg/dL 11/12/23 Range/Units 06:02 POC Glucose (mg/dL) 118 H (70-110) mg/dL - Imaging and Cardiology Chest x-ray: report reviewed, image reviewed Assessment and Plan Assessment: Coronary artery disease with left main disease, unstable angina, status post 2V off pump CABG Hypertension Hyperlipidemia, Treated, cholesterol 119, LDL 56 Peripheral arterial disease with previous aorto bifemoral bypass Obstructive sleep apnea with home CPAP use Type 2 diabetes, Preoperative hemoglobin A1c 7.5% Prostate cancer in 2019 status post radiation, currently on flomax outpatient Current tobacco dependence Moderate COPD, preoperative FEV1 53% of predicted Arthritis Previous history of COVID Plan: Continue to maximize medical therapy with aspirin, statin, Plavix, beta shelly. Will increase beta shelly therapy as tolerated Continue oral calcium channel shelly for radial artery spasm prophylaxis Wean oxygen as tolerated, encourage incentive spirometry use 10 times every hour while awake, bronchodilators per pulmonology Increase activity, ambulate as tolerated. PT/OT/cardiac rehab consulted Will monitor daily labs and x-rays, electrolyte replacement per protocol GI/DVT prophylaxis Insulin management per internal medicine Pain control per current medication regimen Continue to record strict accurate intake and output Continue home dose of Flomax Daily weights Smoking cessation counseling education provided, patient strongly encouraged complete smoking cessation. Will be provided with 1 800 quit now helpline upon discharge Discharge planning in progress, anticipate discharge to home with home care, erick sherwood this afternoon, may need oxygen at discharge due to COPD, room air oxygen saturation was 86% last night More recommendations to follow
--- NOTE | 2023-11-12 08:27 | P.PN ---
Subjective Progress Note Date: 11/12/23 The patient is a pleasant 68-year-old gentleman who was admitted to the hospital and underwent CABG electively. November 12, 2023 The patient was seen and evaluated. He is asymptomatic and he is hemodynamical ly stable. He is on maximized medical treatment. The pressure has been soft but above 90 mmHg systolic. The chest x-ray was reviewed. Blood work was reviewed as well. Overall the patient is doing well from a cardiovascular standpoint of view. The examination is remarkable for stable vital signs with soft blood pressure and clear breathing sounds bilaterally and no edema was noted in the lower extremities Assessment Status post CABG Multiple comorbid conditions Plan Continue the current medical regimen Possible discharge in next 12 to 24 hours Objective - Vital Signs Vital signs: Vital Signs Temp 98 F 11/12/23 04:00 Pulse 65 11/12/23 04:00 Resp 14 11/12/23 04:00 BP 97/58 11/12/23 04:00 Pulse Ox 91 L 11/12/23 04:00 FiO2 40 11/08/23 21:21 Intake & Output 11/11/23 11/12/23 11/12/23 18:59 06:59 18:59 Intake Total 702 120 Output Total 100 600 Balance 602 -480 Weight 104.6 kg 104.6 kg Intake: Oral 702 120 Output: Urine 100 600 Other: Voiding Method Urinal Toilet Urinal ABP, PAP, CO, CI - Last Documented Arterial Blood Pressure 102/58 Pulmonary Artery Pressure 21/8 Cardiac Output 7.2 Cardiac Index 3.2 - Labs CBC & Chem 7: 11/12/23 07:44 11/11/23 05:35 Labs: Abnormal Lab Results - Last 24 Hours (Table) 11/11/23 11/11/23 11/11/23 Range/Units 11:22 16:34 19:51 MCV (80.0-100.0) fL POC Glucose (mg/dL) 124 H 120 H 121 H (70-110) mg/dL 11/12/23 11/12/23 Range/Units 06:02 07:44 MCV 104.8 H (80.0-100.0) fL POC Glucose (mg/dL) 118 H (70-110) mg/dL
[2023-11-12 08:33] LABS: African American GFR (CKD) >90 (>60 ml/min/1.73 sqM); Anion Gap 7 mmol/L; Blood Urea Nitrogen 17 mg/dL (9-20); Calcium 8.5 mg/dL (8.4-10.2); Carbon Dioxide 21 mmol/L (22-30); Chloride 110 mmol/L (98-107); Glucose 108 mg/dL (74-99); Non-African American GFR(CKD) >90 (>60 ml/min/1.73 sqM); Sodium 138 mmol/L (137-145)
[2023-11-12 08:34] LABS: Magnesium 1.7 mg/dL (1.6-2.3); Potassium 4.2 mmol/L (3.5-5.1)
[2023-11-12] MEDS: FUROSEMIDE 10 MG/ML 2 ML VIAL IV ONE (08:54)
[2023-11-12] MEDS: MAGNESIUM OXIDE 400 MG TAB PO SCH (09:47)
[2023-11-12] MEDS: metFORMIN 500 MG TAB PO SCH (09:47)
[2023-11-12 11:06] VITALS: RESP 16; TEMP 98.1
[2023-11-12 11:37] LABS: Glucose,Whole Blood 137 mg/dL (70-110)
--- NOTE | 2023-11-12 11:56 | P.PN ---
Subjective Progress Note Date: 11/12/23 Principal diagnosis: Coronary artery disease. Pulmonary consult dated November 08, 2023. 68-year-old male who was seen by cardiology, for chest discomfort. The patient has a history of diabetes, chronic tobacco use, hyperlipidemia, and peripheral vascular disease. He had a previous aortobifemoral bypass. The patient had a stress test, for preoperative clearance, and was noted to have ST-T wave changes. For that reason, the patient underwent cardiac catheterization, was found to have significant coronary disease. The patient is scheduled for bypass grafting, with Dr. Rosales today. The patient is a smoker, having smoked for 52 years. I did look at his lung function. His FEV1 is 1.80 L which is 53% of predicted. Hence, he has moderately severe COPD. He does have shortness of breath on exertion. Currently he is on room air. He is getting saline at 75 cc an hour. His cardiac catheterization, revealed a calcified left main coronary artery, severe distal left main stenosis involving the ostium of the LAD and left circumflex, and mild disease in the right coronary artery. Chest CT showed extensive three-vessel coronary artery calcification. There is also changes of COPD/emphysema. Most recent labs include a white count 7.1, hemoglobin 15.6, hematocrit 48.2, and a platelet count of 194,000. Sodium 138, potassium 3.9, chlorides 110, CO2 23, BUN 17, creatinine 0.59. Glucose is 91. Progress note dated 11/09/2023. 68-year-old male postop day #1, status post two-vessel bypass surgery. Currently, the patient is seen in room 267. He appears to be doing relatively well. He is currently on 4 L of oxygen. Is getting saline at 40 mL an hour, insulin drip at 0.5 units an hour.Current labs include a white count 11.6, he will 14.6, hematocrit 44.8, and a platelet count of 152,000. Sodium 135, potassium 3.9, chloride 107, bicarbonate 20, BUN 10, creatinine 0.5. The rest of the comprehensive metabolic profile looks good.Chest x-ray shows bibasilar atelectasis, small pleural effusions, and some mild interstitial edema. Progress note dated November 10, 2023. 68-year-old male who is seen today in room 267. He is status post two-vessel bypass surgery, postop day number, #2. The patient appears to be doing relatively well. Currently, he is on 2 L of oxygen. He is getting saline at KVO. He is on an insulin drip at 1.5 units an hour. According to the nurse, Roula, he had an uneventful night. Current laboratory data includes a white count 11.4, hemoglobin 15.5, hematocrit 48.4, and a platelet count of 142,000. Sodium 133, potassium 4.2, chlorides 107, CO2 19, BUN and creatinine were 14 and 0.62. Glucose 155. Albumin 3.3. Chest x-ray shows trace bilateral pleural effusions. Progress note dated November 11, 2023. 68-year-old male seen today in room 370. The patient is currently on 2 L of oxygen. No IV fluids. The patient is doing well, without any particular complaints. The patient is postoperative day #3. Current labs include a white count of 9, hemoglobin 13.5, hematocrit 41, and a platelet count of 147,000. Sodium 136, potassium 3.6, chlorides 109, CO2 22, BUN 12, creatinine 0.63. Glucose is 123. Calcium 8.1. Albumin 2.8. Chest x-ray shows improved lung aeration. Progress note dated November 12, 2023. 68-year-old male seen today in room 370. He currently is on 2 L of oxygen. Saturation is 96%. Is not receiving any IV fluids. He is postoperative day #4. He is hoping to be discharged home later today. He has no specific complaints. He denies any chest pain or pressure. He also denies any shortness of breath, cough, wheezing, chest tightness, or phlegm production. Labs showed a white count 8.1, hemoglobin 14.6, hematocrit 46, and a normal platelet count. Sodium 138, potassium 4.2, chlorides 110, CO2 21, BUN 17, creatinine 0.56. Glucose 137. Calcium 8.5, magnesium 1.7. Chest x-ray shows some bibasilar atelectasis, and postoperative changes. Objective - Vital Signs Vital signs: Vital Signs Temp 98.1 F 11/12/23 08:20 Pulse 76 11/12/23 09:19 Resp 16 11/12/23 08:20 BP 118/66 11/12/23 08:20 Pulse Ox 96 11/12/23 09:05 FiO2 40 11/08/23 21:21 Intake & Output 11/11/23 11/12/23 11/12/23 18:59 06:59 18:59 Intake Total 702 120 Output Total 515 162 7989 Balance 602 -480 -1300 Weight 104.6 kg 104.6 kg Intake: Oral 702 120 Output: Urine 828 643 1882 Other: Voiding Method Urinal Toilet Toilet Urinal Urinal # Voids 1 ABP, PAP, CO, CI - Last Documented Arterial Blood Pressure 102/58 Pulmonary Artery Pressure 21/8 Cardiac Output 7.2 Cardiac Index 3.2 - Exam No acute distress, oriented 3.Currently on 2 L. Saturations are 96 %. HEENT examination is grossly unremarkable. Mucous membranes are moist. No oral lesions. Neck supple. Full range of motion. No adenopathy thyromegaly or neck vein distention. Cardiovascular examination reveals regular rhythm rate. S1-S2 normal. No S3 or S4. No discernible murmur noted. Heart rate 76 bpm. Lungs reveal scattered bilateral rhonchi. No wheezes or crackles. Breath sounds equal bilaterally. Abdomen soft bowel sounds are heard. No masses or tenderness. Extremities are intact. No cyanosis clubbing or edema. Skin is without rash or lesion. Neurologic examination is brief but nonfocal. - Labs CBC & Chem 7: 11/12/23 07:44 11/12/23 07:44 Labs: Abnormal Lab Results - Last 24 Hours (Table) 11/11/23 11/11/23 11/12/23 Range/Units 16:34 19:51 06:02 MCV (80.0-100.0) fL Chloride (98-107) mmol/L Carbon Dioxide (22-30) mmol/L Creatinine (0.66-1.25) mg/dL Glucose (74-99) mg/dL POC Glucose (mg/dL) 120 H 121 H 118 H (70-110) mg/dL 11/12/23 11/12/23 11/12/23 Range/Units 07:44 07:44 11:35 MCV 104.8 H (80.0-100.0) fL Chloride 110 H (98-107) mmol/L Carbon Dioxide 21 L (22-30) mmol/L Creatinine 0.56 L (0.66-1.25) mg/dL Glucose 108 H (74-99) mg/dL POC Glucose (mg/dL) 137 H (70-110) mg/dL Assessment and Plan Assessment: Postop day #4, status post two-vessel bypass grafting. Routine postoperative ventilator management. Significant coronary artery disease, with anticipated bypass surgery, November 08, 2023. 52 years of tobacco use, 1 pack a day, with moderately severe COPD, and an FEV1 percent that is 53. FEV1 that is 1.80 L, which predicts a no/low increased operative risk for general anesthesia. History of diabetes mellitus. History of hypertension. History of hyperlipidemia. Peripheral vascular occlusive disease. Plan: Plan dated November 08, 2023. The patient is seen on the general medical floor. He is seen today in room 369. He is planning to undergo surgery, later today. I looked at his lung function. His FEV1 percent is 53. That would mean that he has moderately severe COPD. He smoked for 52 years. His FEV1 was 1.80 L, putting him in the no low increased operative risk category. Today, we explained our role in patients un dergoing bypass. Initially, the plan is to get him off the ventilator soon as possible. Secondly, to see him every day, and make sure that he does not develop any pulmonary issues, after surgery. In that regard, we pointed out to him that incentive spirometry is very important. Plan dated 11/09/2023. The patient is seen today in room 267. Ascending the chair next to his hospital bed. He is currently on 4 L of oxygen. Is also getting saline at 40 mL now, and insulin drip at 0.5 units an hour. He status post two-vessel bypass grafting. The patient appears be doing well. We recommend deep breathing, coughing, and clearing her secretions. We also recommend hourly use of the incentive spirometer. We will continue to follow the patient, make recommendations along the way. Prognosis is guarded. Plan dated November 10, 2023. The patient appears to be doing relatively well. He is seen today in room 267. He has been weaned down to 2 L. Saturations were in the mid to high 90s. He continues on saline at KVO. He is on an insulin drip at 1.5 units an hour. Labs, x-rays, and medications are reviewed. No additional recommendations are made at this time. We encourage deep breathing, coughing, clearing of secretions. We also recommend hourly use of the incentive spirometer. We will continue to follow the patient, make recommendations along the way. Plan dated November 11, 2023. The patient is seen today in room 370. He continues on 2 L of oxygen. No IV fluids. Clinically, he is doing much better. His insulin drip has been discontinued. Labs, x-rays, and medications are all reviewed. We will continue to follow make recommendations along the way. We again continue to encourage him to deep breathe, cough, clear secretions, and use the incentive spirometer, every hour. Plan dated November 12, 2023. The patient appears to be doing relatively well. The patient has no specific complaints today. We will continue to follow the patient, make recommendations along the way. We encourage deep breathing, coughing, clearing of secretions. We also recommend hourly use of the incentive spirometer. Should he be discharged home today, he should take the incentive spirometer with him. No additional recommendations are made. Labs, x-rays, and all medications have bee n reviewed. Time with Patient: Less than 30
[2023-11-12 13:46] VITALS: BP 136/74; PULSE 75
--- NOTE | 2023-11-12 14:22 | P.DS ---
Providers Date of admission: 11/08/23 11:29 Expected date of discharge: 11/12/23 Attending physician: Jeremias Rosales Consults: 11/07/23 12:43 Consult Physician Routine Consulting Provider: Jeremias Rosales Consult Reason/Comments: cabg Do you want consulting provider notified?: Already Contacted 11/07/23 15:41 Consult Physician Routine Consulting Provider: Swapnil Daniel Consult Reason/Comments: pulm clearance for open heart 11/08/23 Do you want consulting provider notified?: Yes Consult to Anesthesia Routine Consulting Provider: Anesthesia,Services Consult Reason/Comments: Cardiac Surgery Pre-Op 11/07/23 15:59 Consult Physician Routine Consulting Provider: Unique Lepe Consult Reason/Comments: med natalee; Yung Champion patient Do you want consulting provider notified?: Yes 11/08/23 18:17 Consult Physician Routine Consulting Provider: Wilman Noguera Consult Reason/Comments: Position Classifier Consult: post cardiac surgery Do you want consulting provider notified?: Yes Primary care physician: Abdullahi Champion [facility] Course: FINAL DIAGNOSIS: Coronary artery disease with left main disease, unstable angina Hypertension Hyperlipidemia, Treated, cholesterol 119, LDL 56 Peripheral arterial disease with previous aorto bifemoral bypass Obstructive sleep apnea with home CPAP use Type 2 diabetes, Preoperative hemoglobin A1c 7.5% Prostate cancer in 2020 status post radiation, currently on flomax outpatient Current tobacco dependence Moderate COPD, preoperative FEV1 53% of predicted Arthritis Previous history of COVID PRINCIPAL PROCEDURE: Off-pump CABG x 2 with VERGARA to LAD and left radial artery to obtuse marginal Endovascular radial artery harvest DALILA by anesthesia HISTORY OF PRESENT ILLNESS:[This is a 68-year-old gentleman who follows outpatient with Dr. Abdullahi Champion for primary care as well as Dr. Boston for cardiology. This gentleman needs a left total hip arthroplasty and underwent stress testing for cardiac clearance. Unfortunately his treadmill stress test indicated ischemic changes so he was sent to cardiology for workup. The patient denied any chest pain, shortness of breath, or any other symptomatology of angina. In the cardiology office he had an echocardiogram completed demonstrating normal left ventricular systolic function with EF 55-60%, no regional wall motion abnormalities, mild mitral regurgitation mild aortic stenosis, and mild tricuspid regurgitation. He was recommended to wear undergo heart catheterization which was completed by Dr. Boston and which revealed distal left main stenosis 70 to 80%, ostial LAD stenosis 95% as well as ostial left circumflex stenosis 80 to 90%. Due to these findings consultation was placed to Dr. Rosales from cardiothoracic surgery for revascularization recommendations. He was recommended to undergo surgical myocardial revascularization. The usual perioperative course was discussed in detail with the patient and his family, all risks and benefits were explained, all questions were answered, and consent was obtained to proceed with surgery. The patient was kept inpatient for urgent surgery due to the nature of his disease process. HOSPITAL COURSE: The patient was brought to the preoperative area 11/08/23, prepared in the usual fashion, and subsequently taken to the operating room where Dr. Rosales performed two-vessel off-pump CABG. Upon completion of surgery the patient was transferred to the cardiovascular intensive care unit where he was recovered and monitored hemodynamically. He was extubated, all lines, tubes, and drips were discontinued when appropriate, and he was transferred to 3 S. cardiac stepdown unit for further monitoring and rehabilitation. His oxygen was titrated down, he continued to work with physical and occupational therapy, he was tolerating oral diet, his pain was controlled, and he was ready to be discharged to home with [facility] on postoperative day #4. He received written and verbal instruction regarding his medications, activity restrictions, signs and symptoms requiring physician notification, and follow-up appointments. Patient Condition at Discharge: Stable Plan - Discharge Summary Discharge Rx Participant: No New Discharge Prescriptions: New Metoprolol Tartrate [Lopressor] 25 mg PO BID #60 tab amLODIPine [Norvasc] 5 mg PO DAILY@1200 #30 tab Pantoprazole [Protonix] 40 mg PO AC-BRKFST #30 tab Sennosides-Docusate Sodium [Senokot-S] 2 each PO HS #10 tab Atorvastatin [Lipitor] 40 mg PO DAILY #30 tab Clopidogrel [Plavix] 75 mg PO DAILY #30 tab Acetaminophen Tab [Tylenol] 1,000 mg PO Q6HR PRN tab PRN Reason: Fever And/ Or Pain Continue buPROPion HCL [buPROPion HCL Xl] 150 mg PO HS metFORMIN HCL 500 mg PO DAILY Tamsulosin HCl [Flomax] 0.4 mg PO HS Pioglitazone [Actos] 15 mg PO DAILY Changed Aspirin 325 mg PO DAILY #0 Discontinued Atorvastatin [Lipitor] 10 mg PO HS Metoprolol Succinate [Metoprolol Succinate ER] 25 mg PO DAILY Discharge Medication List Tamsulosin HCl [Flomax] 0.4 mg PO HS 04/04/22 [History] buPROPion HCL [buPROPion HCL Xl] 150 mg PO HS 04/04/22 [History] Pioglitazone [Actos] 15 mg PO DAILY 10/23/23 [History] metFORMIN HCL 500 mg PO DAILY 10/23/23 [History] Acetaminophen Tab [Tylenol] 1,000 mg PO Q6HR PRN tab 11/12/23 [Rx] Aspirin 325 mg PO DAILY #0 11/12/23 [Rx] Atorvastatin [Lipitor] 40 mg PO DAILY #30 tab 11/12/23 [Rx] Clopidogrel [Plavix] 75 mg PO DAILY #30 tab 11/12/23 [Rx] Metoprolol Tartrate [Lopressor] 25 mg PO BID #60 tab 11/12/23 [Rx] Pantoprazole [Protonix] 40 mg PO AC-BRKFST #30 tab 11/12/23 [Rx] Sennosides-Docusate Sodium [Senokot-S] 2 each PO HS #10 tab 11/12/23 [Rx] amLODIPine [Norvasc] 5 mg PO DAILY@1200 #30 tab 11/12/23 [Rx] Follow up Appointment(s)/Referral(s): Radha Boston MD [STAFF PHYSICIAN] - 11/20/23 10:00 am () [facility] [NON-STAFF] - 4 Weeks (You will receive a phone call in approximately 4-6 weeks for evaluation for cardiac rehab) Jeremias Rosales MD [STAFF PHYSICIAN] - 11/29/23 2:00 pm Doe Chatman NPC [Nurse Practitioner] - 11/20/23 11:30 am (You will be seen in the surgeon's office behind the hospital in [facility], [address] Office phone number is ) Swapnil Daniel DO [Doctor of Osteopathic Medicine] - 12/07/23 9:00 am [facility] [NON-STAFF] - 1 Week ([facility] will call you to arrange a visit) Abdullahi Champion MD [Primary Care Provider] - 11/21/23 9:30 am Ambulatory/Diagnostic Orders: Complete Blood Count w/diff [LAB.AMB] Time Frame: 3 Days, Location: None Selected Comprehensive Metabolic Panel [LAB.AMB] Time Frame: 3 Days, Location: None Selected Activity/Diet/Wound Care/Special Instructions: DISCHARGE INSTRUCTIONS: 1. No driving for 4 weeks, or until physician gives their ok. 2. The patient should sleep in their own bed, no medical bed needed. 3. Stairs are not an issue. If the bedroom is upstairs, it is advised that the patient go up at night and down in the morning for the first week. Go slowly, using handrail and take 1 step at a time. 4. ARTEMIO hose are to be worn for 30 days post surgery or until physician discontinues. 5. Heart hugger is to be worn 100% of the time until physician discontinues.(except when showering) 6. No lifting, pushing, or pulling more than 10 pounds for 12 weeks. The physician will advise of any restriction changes. 7. The patient is expected to continue the prescribed walking program. 8. Continue pain control per as needed orders. 9. Continue with incentive spirometry and splinting/heart hugger until otherwise directed by the physician. 10. Must shower daily using liquid antibacterial soap 11. Routine sternal incision care. No powders, lotions, ointments on incisions. No dressings are necessary on incisions unless they are draining. Dermabond tape is to remain on sternal incision until surgeon follow-up. 12. Please call surgeon/[employer] OPERATOR for temp greater than 101 F or purulent drainage from incisions. 13. You should weigh yourself daily, record and bring log with you to follow up appointments. 14. All prescriptions given by surgeon for 30 days. Refills need to be filled through communications designer/primary care physician. 15. A Red armband has been placed on the patient. It should be worn for 30 days post discharge from surgery and will be removed by the cardiac surgeons. If an ER visit is necessary, please make sure the number on the Red armband is called before going to ER. 16. You have been referred to and are expected to begin Cardiac Rehab in approximately 4-6 weeks. 17. Quitting smoking is the most important step you can take to improve your health. For additional information and assistance to quit smoking, please call the [employer] tobacco quit line (2-741-IANP-NOW/ ) or online: [email or web address]-to-qu it-tobacco HOME HEALTH SERVICES TO PROVIDE: RN SKILLED HOME CARE SERVICES FOR POST-OP SURGICAL PATIENTS WITH THE FOLLOWING: Coronary Artery Bypass Surgery (CABG), Mitral Valve Replacement/Repair ( MVR), Aortic Valve Replacement/Repair (AVR) RN TO CONTINUE EDUCATION FROM ``ROAD TO A HEALTH HEART PATIENT EDUCATION MANUAL (GIVEN TO PATIENT IN THE HOSPITAL) MEDICATION RECONCILIATION WITH EDUCATION NEEDED ON FIRST HOME VISIT EMPHASIZE IMPORTANCE OF WEARING BREAST SUPPORT/HEART HUGGER ENCOURAGE USE OF INCENTIVE SPIROMETER 10 X EVERY HOUR WHILE AWAKE ENCOURAGE UTILIZATION OF LOWER EXTREMITY COMPRESSION STOCKINGS/ARTEMIO HOSE and ELEVATE LEGS ABOVE LEVEL OF HEART WHILE AT REST. ENCOURAGE AMBULATION 3-5x/day INCREASING TOLERATES, WHILE AVOIDING EXTREMES IN TEMPERATURE FREQUENCY: RN TO OPEN THE PATIENT WITHIN 24 HOURS OF DISCHARGE FROM THE HOSPITAL WITH [place]HEALTH [place] [facility] VISIT 2-3 X A WEEK FOR 4 WEEKS ESTABLISHED BY PATIENT NEEDS. LABORATORY: CBC, CMP TO BE DRAWN ON THE THIRD DAY HOME, (RAN STAT) FAX RESULTS TO [phone]. TELEHEALTH PARAMETERS: WEIGHT: NOTIFY MD OF WEIGHT GAIN OF 2 LBS IN 24 HOURS OR 5 LBS IN ONE WEEK HR: NOTIFY MD OF HR <55 BPM OR HR>100 BPM BP: NOTIFY MD IF BP <90/55 OR BP>140/100 O2 SAT: NOTIFY MD IF PO2<93% ON ROOM AIR SEND TELEHEALTH REPORT TO HOUSEKEEPING ASSISTANT AND CARDIOVASCULAR SURGEON THE FIRST WEEK OF CARE AND THEN BI-WEEKLY. PLEASE ADDITIONALLY COMMUNICATE ANY ABNORMALS AND NEW FINDINGS TO THE SURGEONS OFFICE. Discharge Disposition: HOME WITH HOME HEALTH SERVICES
== END 2023-11-12 15:34 | disposition home health service (06) | DRG 236 ==
LOC: CATHCVL 10:41 → 3SCARD 12:24 → 2SICU 11-08 11:24 → CATHCVL 11-08 11:29 → 2SICU 11-08 11:29 → 3SCARD 11-10 15:18
PROVIDERS: ADMIT Thoracic Surgery (Cardiothoracic Vascular Surgery); ATTEND Thoracic Surgery (Cardiothoracic Vascular Surgery)
PROC: 03BC4ZZ Excision of Left Radial Artery, Percutaneous Endoscopic Approach (ICD-10-PCS; 2023-11-08)
PROC: B24BZZ4 Ultrasonography of Heart with Aorta, Transesophageal (ICD-10-PCS; 2023-11-08)
PROC: 02100Z9 Bypass Coronary Artery, One Artery from Left Internal Mammary, Open Approach (ICD-10-PCS; principal; 2023-11-08 07:30)
PROC: 02100A3 Bypass Coronary Artery, One Artery from Coronary Artery with Autologous Arterial Tissue, Open Approach (ICD-10-PCS; 2023-11-08 07:30)
DX: I25.110 Atherosclerotic heart disease of native coronary artery with unstable angina pectoris (principal); E11.51 Type 2 diabetes mellitus with diabetic peripheral angiopathy without gangrene; E05.00 Thyrotoxicosis with diffuse goiter without thyrotoxic crisis or storm; I70.203 Unspecified atherosclerosis of native arteries of extremities, bilateral legs; J43.9 Emphysema, unspecified; I10 Essential (primary) hypertension; M16.12 Unilateral primary osteoarthritis, left hip; E78.5 Hyperlipidemia, unspecified; F17.210 Nicotine dependence, cigarettes, uncomplicated; I08.3 Combined rheumatic disorders of mitral, aortic and tricuspid valves; G47.33 Obstructive sleep apnea (adult) (pediatric); Z95.820 Peripheral vascular angioplasty status with implants and grafts; Z92.3 Personal history of irradiation; Z86.16 Personal history of COVID-19; Z79.84 Long term (current) use of oral hypoglycemic drugs; Z79.82 Long term (current) use of aspirin; Z86.718 Personal history of other venous thrombosis and embolism; Z79.899 Other long term (current) drug therapy; Z85.46 Personal history of malignant neoplasm of prostate
CPT/HCPCS: 71045; 71046; 71250; 80048; 80053; 80061; 80074; 82330; 82805; 83036; 83735; 84443; 85025; 85027; 85520; 85610; 85730; 86850; 86891; 86900; 86901; 86920; 87070; 93458; 93880; 93970; 94002; 94150; 94640; 94760

== ENCOUNTER 2023-12-12 08:19 | Inpatient (IN) | payer MEDICARE, OTHER ==
[2023-12-12] MEDS ORDERED: SODIUM CHLORIDE 0.9% 1,000 ML BAG ONE (09:20)
[2023-12-12] MEDS ORDERED: MAGNESIUM SULFATE-D5W PMX 100 ML IVPB ONE (10:34)
[2023-12-12] MEDS ORDERED: MORPHINE SULFATE 4 MG/ML SYRINGE ONE (13:01)
[2023-12-13] MEDS ORDERED: ASPIRIN 81 MG ONE (11:53)
[2023-12-13] MEDS ORDERED: ACETAMINOPHEN TAB 325 MG TAB ONE ×2 (11:54→20:51)
[2023-12-13] MEDS ORDERED: METOPROLOL TARTRATE 25 MG TAB ONE ×2 (11:54→20:51)
[2023-12-13] MEDS ORDERED: FAMOTIDINE 20 MG TAB ONE (11:54)
[2023-12-13] MEDS ORDERED: ATORVASTATIN 20 MG TAB ONE (13:23)
[2023-12-13] MEDS ORDERED: ATORVASTATIN 40 MG TAB ONE (13:25)
[2023-12-13] MEDS ORDERED: TAMSULOSIN 0.4 MG CAP.ER.24H PO ONE (20:51)
[2023-12-13] MEDS ORDERED: PIOGLITAZONE 15 MG TAB ONE (23:59)
[2023-12-13] MEDS ORDERED: PHENAZOPYRIDINE 200 MG TAB ONE (23:59)
[2023-12-13] MEDS ORDERED: buPROPion XL 150 MG TAB.ER.24H PO ONE (23:59)
[2023-12-13] MEDS ORDERED: amLODIPine 2.5 MG TAB ONE (23:59)
[2023-12-14] MEDS ORDERED: ACETAMINOPHEN TAB 325 MG TAB ONE ×2 (05:26→18:44)
[2023-12-14] MEDS ORDERED: FAMOTIDINE 20 MG TAB ONE (08:09)
[2023-12-14] MEDS ORDERED: amLODIPine 5 MG TAB ONE (08:10)
[2023-12-14] MEDS ORDERED: ASPIRIN 81 MG ONE (08:12)
[2023-12-14] MEDS ORDERED: ATORVASTATIN 40 MG TAB ONE (08:12)
[2023-12-14] MEDS ORDERED: METOPROLOL TARTRATE 25 MG TAB ONE ×2 (08:12→23:59)
[2023-12-14] MEDS ORDERED: METOPROLOL SUCCINATE (ER) 25 MG TAB.ER.24H PO ONE (20:10)
[2023-12-14] MEDS ORDERED: TAMSULOSIN 0.4 MG CAP.ER.24H PO ONE (20:10)
[2023-12-14] MEDS ORDERED: PIOGLITAZONE 15 MG TAB ONE (23:59)
[2023-12-14] MEDS ORDERED: buPROPion XL 150 MG TAB.ER.24H PO ONE (23:59)
[2023-12-14] MEDS ORDERED: PHENAZOPYRIDINE 200 MG TAB ONE (23:59)
[2023-12-15] MEDS ORDERED: ATORVASTATIN 40 MG TAB ONE (08:02)
[2023-12-15] MEDS ORDERED: METOPROLOL SUCCINATE (ER) 25 MG TAB.ER.24H PO ONE (08:02)
[2023-12-15] MEDS ORDERED: FAMOTIDINE 20 MG TAB ONE (08:02)
[2023-12-15] MEDS ORDERED: ASPIRIN 81 MG ONE (08:02)
[2023-12-15] MEDS ORDERED: amLODIPine 5 MG TAB ONE (08:03)
[2023-12-15] MEDS ORDERED: METOPROLOL TARTRATE 25 MG TAB ONE ×2 (08:21→20:48)
[2023-12-15] MEDS ORDERED: ACETAMINOPHEN TAB 325 MG TAB ONE ×2 (08:32→20:48)
[2023-12-15] MEDS ORDERED: TAMSULOSIN 0.4 MG CAP.ER.24H PO ONE (20:48)
[2023-12-15] MEDS ORDERED: PHENAZOPYRIDINE 200 MG TAB ONE (23:59)
[2023-12-15] MEDS ORDERED: PIOGLITAZONE 15 MG TAB ONE (23:59)
[2023-12-15] MEDS ORDERED: buPROPion XL 150 MG TAB.ER.24H PO ONE (23:59)
[2023-12-16] MEDS ORDERED: ACETAMINOPHEN TAB 325 MG TAB PO PRN
[2023-12-16 06:19] LABS: African American GFR (CKD) >90 (>60 ml/min/1.73 sqM); Anion Gap 9 mmol/L; Blood Urea Nitrogen 24 mg/dL (9-20); Carbon Dioxide 23 mmol/L (22-30); Chloride 105 mmol/L (98-107); Glucose 121 mg/dL (74-99); Non-African American GFR(CKD) >90 (>60 ml/min/1.73 sqM); Potassium 4.1 mmol/L (3.5-5.1); Sodium 137 mmol/L (137-145)
[2023-12-16 06:33] LABS: HCT 39.6 % (39.0-53.0); HGB 12.8 gm/dL (13.0-17.5); MCH 33.2 pg (25.0-35.0); MCHC 32.3 g/dL (31.0-37.0); MCV 102.5 fL (80.0-100.0); Macrocytosis Slight; Mean Platelet Volume 7.9; Platelet Count 330 k/uL (150-450); RBC 3.86 m/uL (4.30-5.90); RDW 13.9 % (11.5-15.5); WBC 8.2 k/uL (3.8-10.6)
[2023-12-16] MEDS: PIOGLITAZONE 15 MG TAB PO SCH (08:06)
[2023-12-16] MEDS: FAMOTIDINE 20 MG TAB PO SCH (08:06)
[2023-12-16] MEDS: ATORVASTATIN 40 MG TAB PO SCH (08:06)
[2023-12-16] MEDS: METOPROLOL TARTRATE 25 MG TAB PO SCH (08:06)
[2023-12-16] MEDS: ASPIRIN 81 MG PO SCH (08:06)
[2023-12-16] MEDS ORDERED: amLODIPine 2.5 MG TAB PO SCH (09:00)
[2023-12-16 12:07] LABS: Glucose,Whole Blood 125 mg/dL (70-110)
--- NOTE | 2023-12-16 13:44 | P.DS ---
Providers Date of admission: 12/12/23 08:19 Attending physician: Jarrod Sweet MD Consults: 12/16/23 04:05 Consult Physician Routine Consulting Provider: Elliot Yun Consult Reason/Comments: Bladder mass, hematuria Do you want consulting provider notified?: Already Contacted Placement Type Exists?: Yes 12/16/23 04:07 Consult Physician Routine Consulting Provider: Radha Boston Consult Reason/Comments: cardiac clearance Do you want consulting provider notified?: Already Contacted Placement Type Exists?: Yes Primary care physician: [facility] Course: addendum: Please note Electronic system was down up to 12/15/2023 and everything was documented on paper chart. This is a pleasant 68 years old male with past medical history of multiple medical problems including coronary artery disease status post CABG about 1 month ago where he was discharged on aspirin and Plavix. Presents this time with hematuria.CAT scan showed possible blood in the urinary bladder but cannot exclude renal mass. On admission Plavix was held and continued on aspirin and has been evaluated by urologist and field crop farming supervisor. Patient did well and his symptoms improved. His hematuria and passing clots has completely resolved. His urine is clearing up is yellow/orange. No more blood or clots. Bladder scan is 0 checked yesterday and today after discontinuing of the Alvarenga catheter. Patient with no dysuria or suprapubic pain or tenderness. No flank pain. Patient denies any other complaint. Patient wants to go home. Patient was cleared for discharge by both field crop farming supervisor and neurologist. His field crop farming supervisor Dr. Boston is okay with him holding Plavix and he is going to follow-up with him in 1 to 2 weeks after discharge I talked to the patient himself and his daughter over the phone Ms. Brown/Grayson swanson and discussed the possibility of urinary bladder cancer and the need for cystoscopy in his outpatient, both agree with this plan. Actually the patient himself called urology office on Sunday and they told him they going to call him back in 7 to 10 days for appointment Risk of urine and bladder cancer is in explained for the patient and he agrees with the plan Problems and management plan were discussed with the patient and he verbalized understanding and acceptance Patient was found stable and can be discharged home in guarded prognosis however he needs follow-up as an outpatient. Patient was instructed to follow up with PCP with Dr. Champion within one week and patient agrees Follow-up with your field crop farming supervisor Dr. Boston in 1 week after discharge Follow-up with urologist Dr. Zimmerman/Dr. yun in 1 weeks after discharge Physical exam Gen: patient is a AAOx3, no distress CVS: S1-S2, RRR, no murmur Lungs: B/L CTA, no wheezing Abdomen: soft, no distention, no tenderness, positive bowel sounds Extremity: no leg edema or induration Time spent more than 35 minutes Plan - Discharge Summary New Discharge Prescriptions: Continue buPROPion HCL [buPROPion HCL Xl] 150 mg PO HS metFORMIN HCL 500 mg PO DAILY Sennosides-Docusate Sodium [Senokot-S] 2 each PO HS #10 tab Aspirin 325 mg PO DAILY #0 Metoprolol Tartrate [Lopressor] 25 mg PO BID #60 tab amLODIPine [Norvasc] 5 mg PO DAILY@1200 #30 tab Pantoprazole [Protonix] 40 mg PO AC-BRKFST #30 tab Tamsulosin HCl [Flomax] 0.4 mg PO HS Pioglitazone [Actos] 15 mg PO DAILY Atorvastatin [Lipitor] 40 mg PO DAILY #30 tab Acetaminophen Tab [Tylenol] 1,000 mg PO Q6HR PRN tab PRN Reason: Fever And/ Or Pain Discontinued Clopidogrel [Plavix] 75 mg PO DAILY #30 tab Discharge Medication List Tamsulosin HCl [Flomax] 0.4 mg PO HS 04/04/22 [History] buPROPion HCL [buPROPion HCL Xl] 150 mg PO HS 04/04/22 [History] Pioglitazone [Actos] 15 mg PO DAILY 10/23/23 [History] metFORMIN HCL 500 mg PO DAILY 10/23/23 [History] Acetaminophen Tab [Tylenol] 1,000 mg PO Q6HR PRN tab 11/12/23 [Rx] Aspirin 325 mg PO DAILY #0 11/12/23 [Rx] Atorvastatin [Lipitor] 40 mg PO DAILY #30 tab 11/12/23 [Rx] Sennosides-Docusate Sodium [Senokot-S] 2 each PO HS #10 tab 11/12/23 [Rx] Metoprolol Tartrate [Lopressor] 25 mg PO BID #60 tab 08/25/24 [Rx] Pantoprazole [Protonix] 40 mg PO AC-BRKFST #30 tab 12/16/23 [Rx] amLODIPine [Norvasc] 5 mg PO DAILY@1200 #30 tab 12/16/23 [Rx] Follow up Appointment(s)/Referral(s): Radha Boston MD [STAFF PHYSICIAN] - 1 Week Elliot Yun MD [STAFF PHYSICIAN] - 1 Week Abdullahi Champion MD [Primary Care Provider] - 1 Week Activity/Diet/Wound Care/Special Instructions: heart healthy diet activity is restricted till you see your doctor
[2023-12-16 13:50] VITALS: BP 108/68; PULSE 69; RESP 18; TEMP 97.8
[2023-12-16] MEDS ORDERED: buPROPion XL 150 MG TAB.ER.24H PO SCH (21:00)
[2023-12-16] MEDS ORDERED: TAMSULOSIN 0.4 MG CAP.ER.24H PO SCH (21:00)
--- NOTE | 2024-01-01 13:07 | CT ---
Patient: Won Deleon Ordering Physician: Unknown, Unknown ID: [id number] Phone, Pager: Phone: N /A Pager: N/A : 1955 Age/Gender: 68Y, M Primary Location: N/A Procedure: CT abdomen pelvis wo con Study Date: 12/12/2023 9:57:00 AM EXAMINATION TYPE: CT abdomen pelvis w con DATE OF EXAM: 12/12/2023 COMPARISON: 05/17/2018, ultrasound 12/12/2023 INDICATION: Gross hematuria right flank pain DLP: 746 mGycm, Automated exposure control for dose reduction was used. CONTRAST: 0 mL of Isovue 300. Study performed without Oral Contrast TECHNIQUE: Axial images were obtained from above the diaphragm to the pubic rami in the axial plane a t 5 mm thick sections. Reconstructed images are reviewed on the computer in the coronal plane. FINDINGS: Limited CT sections are obtained the lung bases. Small bilateral pleural effusions are present. Some minimal compressive atelectasis may be present. Minimal pericardial effusion may be present. CT ABDOMEN: Liver: Normal Spleen: Normal Pancreas: Normal Adrenal glands: The adrenal glands are normal. Gallbladder: Normal Kidneys: There is a 3.5 cm cyst at the superior pole left kidney tiny cortical renal cysts may be a m id to inferior pole lateral left kidney measuring 0.6 cm. There appears to be a cortical renal cyst r ight posterior upper pole kidney measuring 2.0 cm and 3 Hounsfield units. No masses are evident. Bila teral marked hydronephrosis is present. Hydroureter is present extending to the urinary bladder. Aorta: Vascular calcification is within the aorta. There appears to be an aortic bypass to the left of the [place] aorta. Inferior vena cava: Normal. CT PELVIS: Loops of bowel within the abdomen and pelvis are normal. Study is performed without oral contrast material and bowel attenuation. Small amount of bowel extends into a broad anterior abdominal wall. Umbilical hernia. Appendix: Normal as visualized. Urinary bladder: There is a large hyperdense mass extending across the posterior urinary bladder like ly obstructing the distal ureters bilaterally. This measures 4.5 x 7.8 cm. Workup for urinary bladder neoplasm recommended. This area correlates with the ultrasound findings. Genitourinary structures: Prostate is somewhat prominent and contains calcification. Osseous structures: No suspicious lytic or sclerotic lesions. Degenerative disc changes in the lower lumbar spine. IMPRESSION: 1. Large intraurinary bladder mass. Workup for neoplasm is recommended. 2. No suspicious changes to suggest metastatic disease. 3. Marked bilateral hydronephrosis and hydroureter.
--- NOTE | 2024-01-09 15:04 | US ---
Patient: Won Deleon Ordering Physician: Unknown, Unknown ID: [id number] Phone, Pager: Phone: N/A Pager: N/A : 1955 Age/Gender: 68Y, M Primary Location: N/A Procedure: Renal Study Date: 12/11 9:31:00 AM EXAMINATION TYPE: US renals and bladder DATE OF EXAM: 12/12/2023 COMPARISON: NONE CLINICAL INDICATION: Unknown, old with history of ; Rt kidney measuring 12.4 x 5.3 x 7.2cm. Moderate hydronephrosis seen Lt kidney measuring 13.0 x 5.6 x 7.1cm. Moderate hydro seen. Simple cyst seen in sup pole Bladder has a large avascular echogenic area measuring 5.7cm There is no evidence for hydronephrosis at this point in time. No nephrolithiasis is seen. No dilia s are identified. The urinary bladder is anechoic. Bilateral ureteral jets are seen. IMPRESSION: 1. Probable blood byproducts within the urinary bladder. Underlying mass is not excluded. 2. Bilateral moderate hydronephrosis.
--- NOTE | 2024-01-18 14:52 | CONS ---
CONSULTATION CHIEF COMPLAINT: Gross hematuria, urinary retention. HISTORY OF PRESENT ILLNESS: This is a 68-year-old male with history of prostate cancer, treated with radiation back in 2019. He is in remission since that time. He is a patient, well known to Dr. Zimmerman. He is status post CABG by Dr. Rosales approximately 4 weeks ago. He presented to the hospital with a sudden onset of gross hematuria and difficulty voiding. He indicated he noticed significant amount of gross hematuria and was having urinary frequency and difficulty initiating his stream. Denies any previous history of gross hematuria, no previous urological surgeries. Denies any history of kidney stones or UTIs. In the ER, he underwent a CT abdomen and pelvis that showed evidence of per report possible bladder mass versus bilateral hydronephrosis. Attempt to place a Alvarenga catheter by the ER staff was successful but multiple catheters were clotted. PAST MEDICAL HISTORY: Significant for prostate cancer, hypertension, and coronary artery disease. PAST SURGICAL HISTORY: CABG. FAMILY HISTORY: Negative for malignancies. REVIEW OF SYSTEMS: GENERAL: Negative. RESPIRATORY: Negative. CARDIOVASCULAR: Negative. ABDOMEN: Negative. : Positive for gross hematuria and difficulty urination. PSYCH: Negative. NEUROLOGIC: Negative. PHYSICAL EXAMINATION: GENERAL: No acute distress, having moderate pain along the abdomen. RESPIRATORY: Unlabored breathing, normal chest expansion. CARDIOVASCULAR: Regular rate and rhythm. ABDOMEN: Soft, tenderness along the suprapubic area with a palpable bladder. : Circumcised phallus with bilateral descended testicles, normal to palpation. NEUROLOGIC: Alert and oriented x3. ASSESSMENT AND PLAN: This is a 68-year-old male with gross hematuria, I reviewed his CT scan. On CT it appears to be finding in the bladder more consistent with a blood clot rather than a bladder mass but difficult to completely exclude a mass. There is evidence of hydroureter to the level of proximal ureter but no dilation of the distal or mid ureter with evidence of extrarenal pelvis. No lymphadenopathy appreciated. Per my end at this point, I recommended holding the Plavix given his gross hematuria. I recommended evaluation by cardiology and cardiovascular surgery. A 22-Tajik hematuria catheter was placed and the bladder was irrigated and after irrigation, I removed approximately 200 cc of clot, the urine was light red following irrigation. RECOMMENDATIONS: Recommended to continue to irrigate the catheter every 3 to 4 hours with normal saline. We will reassess tomorrow. MMODL / IJN: [id number] / MTDD
--- NOTE | 2024-01-18 14:58 | PN ---
PROGRESS NOTE DATE OF SERVICE: 12/13/2023 SUBJECTIVE: Urine is light red with minimal clots at this time, catheter is draining without problems. The patient denies any abdominal pain. OBJECTIVE: ABDOMEN: Soft, nontender. RESPIRATORY: Nonlabored breathing. Normal chest expansion. : Catheter is light red with minimal clots. ASSESSMENT AND PLAN: This is a 68-year-old male admitted to the hospital with clot retention, urine is clearing up. CT showed possible mass versus a large clot in the bladder. At this time, we will keep the Alvarenga catheter in place, irrigate every 4 hours. We will reassess tomorrow. MMODL / IJN: [id number] /
--- NOTE | 2024-01-18 14:58 | PN ---
PROGRESS NOTE DATE OF SERVICE: 12/14/2023 SUBJECTIVE: Urine is clear this morning. He denies any abdominal pain. Catheter is draining without any issues. OBJECTIVE: ABDOMEN: Soft, nontender. RESPIRATORY: Nonlabored breathing. Normal chest expansion. ASSESSMENT AND PLAN: This is a 68-year-old male admitted to the hospital with clot retention, urine is clear this morning. Alvarenga catheter can be removed. If he is able to void, he can be discharged from Urology standpoint. He will need to follow up as an outpatient for cystoscopy in 1 to 2 weeks. MMODL / IJN: [id number] /
== END 2023-12-16 15:30 | disposition home or self-care (01) | DRG 699 ==
LOC: UNDOADMIN 08:19 → 5NMEDONC 08:19 → UNDODISIN 12-13 00:27
PROVIDERS: ADMIT Internal Medicine; ATTEND Internal Medicine
PROC: 3C1ZX8Z Irrigation of Indwelling Device using Irrigating Substance, External Approach (ICD-10-PCS; principal; 2023-12-12)
DX: N32.89 Other specified disorders of bladder (principal); N13.30 Unspecified hydronephrosis; R31.9 Hematuria, unspecified; I25.10 Atherosclerotic heart disease of native coronary artery without angina pectoris; I10 Essential (primary) hypertension; E78.5 Hyperlipidemia, unspecified; E11.9 Type 2 diabetes mellitus without complications; Z79.02 Long term (current) use of antithrombotics/antiplatelets; Z85.46 Personal history of malignant neoplasm of prostate; Z92.3 Personal history of irradiation; Z95.1 Presence of aortocoronary bypass graft; Z79.899 Other long term (current) drug therapy; Z79.82 Long term (current) use of aspirin
CPT/HCPCS: 51798; 74176; 76770; 80048; 85027; 86850; 86900; 86901; 93005; 96361; 96365; 99285

== ENCOUNTER → 2024-02-07 | Outpatient (CLI) | payer MEDICARE, OTHER ==
[2024-02-07 20:00] LABS: ALT 12 U/L (10-49); AST 17 U/L (14-35); Albumin 4.1 g/dL (3.8-4.9); Albumin/Globulin Ratio 1.24 Ratio (1.60-3.17); Alkaline Phosphatase 123 U/L (41-126); Blood Urea Nitrogen 14.8 mg/dL (9.0-27.0); Calcium 9.5 mg/dL (8.7-10.3); Carbon Dioxide 25.1 mmol/L (21.6-31.8); Chloride 102 mmol/L (96-109); Chol/HDL Ratio 3.09 Ratio; Globulin 3.3 g/dL (1.6-3.3); Glucose 102 mg/dL (70-110); LDL Cholesterol,Calculated 73.2 mg/dL (0.0-131.0); Potassium 4.8 mmol/L (3.5-5.5); Sodium 140 mmol/L (135-145); Total Bilirubin 0.3 mg/dL (0.3-1.2); Total Protein 7.4 g/dL (6.2-8.2); VLDL Calculation 19.52 mg/dL (5.00-40.00)
== END | disposition home or self-care (01) ==
LOC: LABWHC1 12:19
PROVIDERS: ATTEND Internal Medicine Interventional Cardiology
DX: E78.2 Mixed hyperlipidemia (principal)
CPT/HCPCS: 36415; 80053; 80061

== ENCOUNTER 2024-03-25 10:55 | Emergency (ER) | payer MEDICARE, OTHER ==
[2024-03-25 11:01] VITALS: RESP 18; TEMP 97.7
--- NOTE | 2024-03-25 11:19 | ED ---
General Adult HPI - General Chief complaint: Urogenital Stated complaint: blood in urine Time Seen by Provider: 03/25/24 11:00 Source: patient, RN notes reviewed, old records reviewed Mode of arrival: ambulatory Limitations: no limitations - History of Present Illness Initial comments: This is a 68-year-old male who presents to the emergency department stating he has had prostate cancer in the past. Patient states he had radiation years ago. Patient states he comes in today for hematuria. Patient states that in the past he had hematuria but he was on blood thinners then he is not on blood thinners now. Patient states the first episode happened at 6:00 this morning and it was bright red. Patient states he also had some clots that were passed. Patient denies any dysuria. Patient denies any suprapubic pain. Patient states last time he got clotted off such that he was having urinary retention and quite a bit of pain. Patient denies any fever chills. Patient [place] any back pain. - Related Data Home Medications Medication Instructions Recorded Confirmed Tamsulosin HCl [Flomax] 0.4 mg PO HS 04/04/22 11/01/23 buPROPion HCL [buPROPion HCL XL] 150 mg PO HS 04/04/22 11/01/23 Pioglitazone [Actos] 15 mg PO DAILY 10/23/23 11/07/23 metFORMIN HCL 500 mg PO DAILY 10/23/23 11/07/23 Previous Rx's Medication Instructions Recorded Acetaminophen Tab [Tylenol] 1,000 mg PO Q6HR PRN tab 11/12/23 Aspirin 325 mg PO DAILY #0 11/12/23 Atorvastatin [Lipitor] 40 mg PO DAILY #30 tab 11/12/23 Sennosides-Docusate Sodium 2 each PO HS #10 tab 11/12/23 [Senokot-S] Metoprolol Tartrate [Lopressor] 25 mg PO BID #60 tab 12/16/23 Pantoprazole [Protonix] 40 mg PO AC-BRKFST #30 tab 12/16/23 amLODIPine [Norvasc] 5 mg PO DAILY@1200 #30 tab 12/16/23 Sulfamethox-Tmp 800-160Mg [Bactrim 1 each PO Q12HR #14 tab 03/25/24 DS 800-160 mg] Allergies Allergy/AdvReac Type Severity Reaction Status Date / Time No Known Allergies Allergy Verified 11/08/23 11:31 Review of Systems ROS Statement: Those systems with pertinent positive or pertinent negative responses have been documented in the HPI. ROS Other: All systems not noted in ROS Statement are negative. Past Medical History Past Medical History: Coronary Artery Disease (CAD), Cancer, Diabetes Mellitus, Deep Vein Thrombosis (DVT), Hyperlipidemia, Hypertension, Sleep A pnea/CPAP/BIPAP, Thyroid Disorder Additional Past Medical History / Comment(s): Prostate CA-received radiation, 2017 dvt rt leg 30 yrs ago,uses cpap, thyroid 4-5 yrs Graves disease, peripheral arterial disease History of Any Multi-Drug Resistant Organisms: None Reported Additional Past Surgical History / Comment(s): Aortobifemoral bypass, right eye surgery due to Graves., Past Anesthesia/Blood Transfusion Reactions: No Reported Reaction Past Psychological History: No Psychological Hx Reported Smoking Status: Current every day smoker Past Alcohol Use History: None Reported Past Drug Use History: None Reported - Past Family History Mother Family Medical History: No Reported History Additional Family Medical History / Comment(s): "Bad legs." General Exam - General Exam Comments Initial Comments: GENERAL: Patient is well-developed and well-nourished. Patient is nontoxic and well- hydrated and is in no acute distress. ENT: Neck is soft and supple. No significant lymphadenopathy is noted. Oropharynx is clear. Moist mucous membranes. Neck has full range of motion without eliciting any pain. EYES: The sclera were anicteric and conjunctiva were pink and moist. Extraocular movements were intact and pupils were equal round and reactive to light. Eyelids were unremarkable. PULMONARY: Unlabored respirations. Good breath sounds bilaterally. No audible rales rhonchi or wheezing was noted. CARDIOVASCULAR: There is a regular rate and rhythm without any murmurs gallops or rubs. ABDOMEN: Soft and nontender with normal bowel sounds. SKIN: Skin is clear with no lesions or rashes and otherwise unremarkable. NEUROLOGIC: Patient is alert and oriented x3. Cranial nerves II through XII are grossly intact. Motor and sensory are also intact. Normal speech, volume and content. Symmetrical smile. MUSCULOSKELETAL: Normal extremities with adequate strength and full range of motion. No lower extremity swelling or edema. No calf tenderness. Patient has no CVA tenderness LYMPHATICS: No significant lymphadenopathy is noted PSYCHIATRIC: Normal psychiatric evaluation. Limitations: no limitations Course Vital Signs 03/25/24 10:59 Temperature 97.7 F Pulse Rate 58 L Respiratory 18 Rate Blood Pressure 151/67 O2 Sat by Pulse 95 Oximetry Medical Decision Making - Medical Decision Making Was pt. sent in by a medical professional or institution ([facility], [employer], urgent care, hospital, or residential...) When possible be specific @ -No Did you speak to anyone other than the patient for history (EMS, parent, family, police, friend...)? What history was obtained from this source @ -No Did you review nursing and triage notes (agree or disagree)? Why? @ -I reviewed and agree with nursing and triage notes Were old charts reviewed (outside hosp., previous admission, EMS record, old EKG, old radiological studies, urgent care reports/EKG's, residential records)? Report findings @ -No old charts were reviewed Differential Diagnosis? @ -Urinary tract infection, pyelonephritis, cystitis, this is not an all- inclusive list EKG interpreted by me (3pts min.). @ -As above X-rays interpreted by me (1pt min.). @ -None done CT interpreted by me (1pt min.). @ -None done U/S interpreted by me (1pt. min.). @ -None done What testing was considered but not performed or refused? (CT, X-rays, U/S, labs)? Why? @ -None What meds were considered but not given or refused? Why? @ -None Did you discuss the management of the patient with other professionals (professionals i.e. [facility], [employer], lab, RT, psych nurse, addiction social worker, arts and sciences dean, teacher, deputy juvenile officer, case picker)? Give summary @ -I spoke with Dr. Zimmerman he wanted the patient to get some antibiotics for possible urinary tract infection until the urine culture comes back. Was smoking cessation discussed for >3mins.? @ -No Was critical care preformed (if so, how long)? @ -No Were there social determinants of health that impacted care today? How? (Homelessness, low income, unemployed, alcoholism, drug addiction, transpor tation, low edu. Level, literacy, decrease access to med. care, care home, rehab)? @ -No Was there de-escalation of care discussed even if they declined (Discuss DNR or withdrawal of care, Hospice)? DNR status @ -No What co-morbidities impacted this encounter? (DM, HTN, Smoking, COPD, CAD, Cancer, CVA, ARF, Chemo, Hep., AIDS, mental health diagnosis, sleep apnea, morbid obesity)? @ -None Was patient admitted / discharged? Hospital course, mention meds given and route, prescriptions, significant lab abnormalities, going to OR and other pertinent info. @ -Patient received 2 g of Rocephin in the emergency department and will go home on antibiotics. Patient is told to increase his fluid intake so that he does not have as much chance of the blood clotting off in his urine. Patient also is told him to stop aspirin if cardiology allows Undiagnosed new problem with uncertain prognosis? @ -No Drug Therapy requiring intensive monitoring for toxicity (Heparin, Nitro, Insulin, Cardizem)? @ -No Were any procedures done? @ -No Diagnosis/symptom? @ -Hematuria Acute, or Chronic, or Acute on Chronic? @ -Acute Uncomplicated (without systemic symptoms) or Complicated (systemic symptoms)? @ -Complicated Side effects of treatment? @ -No Exacerbation, Progression, or Severe Exacerbation? @ -No Poses a threat to life or bodily function? How? (Chest pain, [place], [place], pneumonia, PE, COPD, DKA, ARF, appy, cholecystitis, CVA, Diverticulitis, Homicidal, Suicidal, threat to staff... and all critical care pts) @ -No - Lab Data Result diagrams: 03/25/24 11:30 03/25/24 11:30 Lab Results 03/25/24 03/25/24 03/25/24 Range/Units 11:30 11:30 11:30 WBC 6.8 (3.8-10.6) k/uL RBC 4.88 (4.30-5.90) m/uL Hgb 15.8 (13.0-17.5) gm/dL Hct 47.8 (39.0-53.0) % MCV 98.0 (80.0-100.0) fL MCH 32.5 (25.0-35.0) pg MCHC 33.1 (31.0-37.0) g/dL RDW 15.0 (11.5-15.5) % Plt Count 264 (150-450) k/uL MPV 7.6 Neutrophils % 58 % Lymphocytes % 27 % Monocytes % 8 % Eosinophils % 4 % Basophils % 1 % Neutrophils # 3.9 (1.3-7.7) k/uL Lymphocytes # 1.9 (1.0-4.8) k/uL Monocytes # 0.6 (0-1.0) k/uL Eosinophils # 0.2 (0-0.7) k/uL Basophils # 0.0 (0-0.2) k/uL PT 10.8 (10.0-12.5) sec INR 1.0 (<1.2) APTT 25.0 (22.0-30.0) sec Sodium (137-145) mmol/L Potassium (3.5-5.1) mmol/L Chloride (98-107) mmol/L Carbon Dioxide (22-30) mmol/L Anion Gap mmol/L BUN (9-20) mg/dL Creatinine (0.66-1.25) mg/dL Est GFR (CKD-EPI)AfAm (>60 ml/min/1.73 sqM) Est GFR (CKD-EPI)NonAf (>60 ml/min/1.73 sqM) Glucose (74-99) mg/dL Calcium (8.4-10.2) mg/dL Total Bilirubin (0.2-1.3) mg/dL AST (17-59) U/L ALT (4-49) U/L Alkaline Phosphatase (38-126) U/L Total Protein (6.3-8.2) g/dL Albumin (3.5-5.0) g/dL Urine Color Red Urine Appearance Bloody (Clear) Urine RBC >182 H (0-5) /hpf Urine WBC 47 H (0-5) /hpf 03/25/24 Range/Units 11:30 WBC (3.8-10.6) k/uL RBC (4.30-5.90) m/uL Hgb (13.0-17.5) gm/dL Hct (39.0-53.0) % MCV (80.0-100.0) fL MCH (25.0-35.0) pg MCHC (31.0-37.0) g/dL RDW (11.5-15.5) % Plt Count (150-450) k/uL MPV Neutrophils % % Lymphocytes % % Monocytes % % Eosinophils % % Basophils % % Neutrophils # (1.3-7.7) k/uL Lymphocytes # (1.0-4.8) k/uL Monocytes # (0-1.0) k/uL Eosinophils # (0-0.7) k/uL Basophils # (0-0.2) k/uL PT (10.0-12.5) sec INR (<1.2) APTT (22.0-30.0) sec Sodium 139 (137-145) mmol/L Potassium 4.5 (3.5-5.1) mmol/L Chloride 105 (98-107) mmol/L Carbon Dioxide 27 (22-30) mmol/L Anion Gap 7 mmol/L BUN 20 (9-20) mg/dL Creatinine 0.71 (0.66-1.25) mg/dL Est GFR (CKD-EPI)AfAm >90 (>60 ml/min/1.73 sqM) Est GFR (CKD-EPI)NonAf >90 (>60 ml/min/1.73 sqM) Glucose 162 H (74-99) mg/dL Calcium 9.3 (8.4-10.2) mg/dL Total Bilirubin 0.3 (0.2-1.3) mg/dL AST 22 (17-59) U/L ALT 23 (4-49) U/L Alkaline Phosphatase 110 (38-126) U/L Total Protein 7.5 (6.3-8.2) g/dL Albumin 4.3 (3.5-5.0) g/dL Urine Color Urine Appearance (Clear) Urine RBC (0-5) /hpf Urine WBC (0-5) /hpf Disposition Clinical Impression: Hematuria Disposition: HOME SELF-CARE Instructions (If sedation given, give patient instructions): Hematuria (ED) Prescriptions: Sulfamethox-Tmp 800-160Mg [Bactrim DS 800-160 mg] 1 each PO Q12HR #14 tab Is patient prescribed a controlled substance at d/c from ED?: No Referrals: Abdullahi Champion MD [Primary Care Provider] - 1-2 days Time of Disposition: 13:41
[2024-03-25 11:44] LABS: Basophils % (A) 1 %; Eosinophils # (A) 0.2 k/uL (0-0.7); Eosinophils % (A) 4 %; HCT 47.8 % (39.0-53.0); HGB 15.8 gm/dL (13.0-17.5); Lymphocytes # (A) 1.9 k/uL (1.0-4.8); Lymphocytes % (A) 27 %; MCH 32.5 pg (25.0-35.0); MCHC 33.1 g/dL (31.0-37.0); Mean Platelet Volume 7.6; Monocytes # (A) 0.6 k/uL (0-1.0); Monocytes % (A) 8 %; Neutrophils # (A) 3.9 k/uL (1.3-7.7); Neutrophils % (A) 58 %; Platelet Count 264 k/uL (150-450); RBC 4.88 m/uL (4.30-5.90); WBC 6.8 k/uL (3.8-10.6)
[2024-03-25 11:56] LABS: ALT 23 U/L (4-49); AST 22 U/L (17-59); African American GFR (CKD) >90 (>60 ml/min/1.73 sqM); Albumin 4.3 g/dL (3.5-5.0); Alkaline Phosphatase 110 U/L (38-126); Anion Gap 7 mmol/L; Blood Urea Nitrogen 20 mg/dL (9-20); Calcium 9.3 mg/dL (8.4-10.2); Carbon Dioxide 27 mmol/L (22-30); Chloride 105 mmol/L (98-107); Glucose 162 mg/dL (74-99); Non-African American GFR(CKD) >90 (>60 ml/min/1.73 sqM); Potassium 4.5 mmol/L (3.5-5.1); Sodium 139 mmol/L (137-145); Total Bilirubin 0.3 mg/dL (0.2-1.3); Total Protein 7.5 g/dL (6.3-8.2)
[2024-03-25 11:59] LABS: Prothrombin Time 10.8 sec (10.0-12.5)
[2024-03-25 12:23] LABS: RBC,Urine >182 /hpf (0-5); WBC,Urine 47 /hpf (0-5)
[2024-03-25 12:26] LABS: Appearance,Urine Bloody (Clear); Color,Urine Red
[2024-03-25] MEDS: cefTRIAXone IN SWFI 1,000 MG/10 ML SYRINGE IVP STA (14:02)
[2024-03-25 14:11] VITALS: BP 163/80; PULSE 60
== END 2024-03-25 14:12 | disposition home or self-care (01) ==
LOC: EC 10:55
DX: R31.9 Hematuria, unspecified (principal); F17.200 Nicotine dependence, unspecified, uncomplicated
CPT/HCPCS: 36415; 80053; 85025; 85610; 85730; 81001; 87086; 99283; J0696

== ENCOUNTER 2024-03-30 13:05 | Observation (INO) | payer MEDICARE, OTHER ==
--- NOTE | 2024-03-30 14:18 | ED ---
Male Urogenital HPI - General Chief complaint: Urogenital Stated complaint: Hematuria Time Seen by Provider: 03/30/24 13:17 Source: patient, RN notes reviewed Mode of arrival: ambulatory Limitations: no limitations - History of Present Illness Initial comments: This is a 68-year-old male who presents to the emergency department for hematuria. Patient states that it started about 6 days ago. He was evaluated here 5 days ago and had blood work and a urine sample sent. He was started on antibiotics, but ended up stopping them. States that since then he has had intermittent bouts of hematuria. However, today he has been unable to urinate for the last 5 to 6 hours. He is now having increasing suprapubic discomfort. States that the last time this happened he required a Alvarenga catheter. He does have an appointment with urology tomorrow. - Related Data Home Medications Medication Instructions Recorded Confirmed buPROPion HCL [buPROPion HCL XL] 150 mg PO HS 04/04/22 03/30/24 Pioglitazone [Actos] 15 mg PO HS 10/23/23 03/30/24 metFORMIN HCL 500 mg PO HS 10/23/23 03/30/24 Aspirin EC [Ecotrin Low Dose] 81 mg PO HS 03/30/24 03/30/24 Metoprolol Tartrate [Lopressor] 25 mg PO HS 03/30/24 03/30/24 amLODIPine [Norvasc] 2.5 mg PO HS 03/30/24 03/30/24 Allergies Allergy/AdvReac Type Severity Reaction Status Date / Time No Known Allergies Allergy Verified 03/30/24 13:13 Review of Systems ROS Statement: Those systems with pertinent positive or pertinent negative responses have been documented in the HPI. ROS Other: All systems not noted in ROS Statement are negative. Past Medical History Past Medical History: Coronary Artery Disease (CAD), Cancer, Diabetes Mellitus, Deep Vein Thrombosis (DVT), Hyperlipidemia, Hypertension, Sleep Apnea/CPAP/BIPAP, Thyroid Disorder Additional Past Medical History / Comment(s): Prostate CA-received radiation, 2017 dvt rt leg 30 yrs ago,uses cpap, thyroid 4-5 yrs Graves disease, peripheral arterial disease History of Any Multi-Drug Resistant Organisms: None Reported Additional Past Surgical History / Comment(s): Aortobifemoral bypass, right eye surgery due to Graves., Past Anesthesia/Blood Transfusion Reactions: No Reported Reaction Past Psychological History: No Psychological Hx Reported Smoking Status: Current every day smoker Past Alcohol Use History: None Reported Past Drug Use History: None Reported - Past Family History Mother Family Medical History: No Reported History Additional Family Medical History / Comment(s): "Bad legs." General Exam Limitations: no limitations General appearance: alert, in no apparent distress Head exam: Present: atraumatic, normocephalic, normal inspection Respiratory exam: Present: normal lung sounds bilaterally. Absent: respiratory distress, wheezes, rales, rhonchi, stridor Cardiovascular Exam: Present: regular rate, normal rhythm, normal heart sounds. Absent: systolic murmur, diastolic murmur, rubs, gallop, clicks GI/Abdominal exam: Present: distended, tenderness Neurological exam: Present: alert, oriented X3, CN II-XII intact Psychiatric exam: Present: normal affect, normal mood Skin exam: Present: warm, dry, intact, normal color. Absent: rash Course Vital Signs 03/30/24 03/30/24 13:10 14:46 Temperature 97.4 F L Pulse Rate 70 60 Respiratory 16 16 Rate Blood Pressure 154/84 132/73 O2 Sat by Pulse 98 94 L Oximetry Medical Decision Making - Medical Decision Making This is a 68-year-old male who presents to the emergency department for urinary retention and hematuria. Was pt. sent in by a medical professional or institution? @ -No Did you speak to anyone other than the patient for history? @ -No Did you review nursing and triage notes? @ -Yes, and I agree, it is accurate with regards to the patient's symptoms. Were old charts reviewed? @ -No Differential Diagnosis? @ -UTI, blood clot, malignancy, BPH, this is not meant to be an all-inclusive list. EKG interpreted by me (3pts min.)? @ -Not obtained X-rays interpreted by me (1pt min.)? @ -Not obtained CT interpreted by me (1pt min.)? @ -Not obtained U/S interpreted by me (1pt. min.)? @ -Pending at the time of admission What testing was considered but not performed? (CT, X-rays, U/S, labs)? Why? @ -None What meds were considered but not given? Why? @ -None Did you discuss the management of the patient with other professionals? @ -Yes, Celeste Singh with [facility], who accepts the patient for admission Did you reconcile home meds? @ -Yes Was smoking cessation discussed for >3mins.? @ -No Was critical care preformed (if so, how long)? @ -No Were there social determinants of health that impacted care today? How? (Homelessness, low income, unemployed, alcoholism, drug addiction, transportation, low edu. Level, literacy, decrease access to med. care, senior care, rehab)? @ -No Was there de-escalation of care discussed even if they declined? (Discuss DNR or withdrawal of care, Hospice)? @ -No What co-morbidities impacted this encounter? (DM, HTN, Smoking, COPD, CAD, Cancer, CVA, Hep., AIDS, mental health diagnosis, sleep apnea, morbid obesity)? @ -Hx of prostate cancer Was patient admitted / discharged? @ -Admitted. On arrival bladder scan was performed demonstrating an estimated 781 mL of urine. Alvarenga catheter subsequently inserted. Greater than 1200 mL of urine was drained. Patient had significant relief in symptoms. Urinalysis obtained revealing blood but is not suggestive of infection. We then planned on discharging the patient home, as he had an appointment to follow-up with his urologist tomorrow. However, he then became concerned that it would continue to clot and he would experience the same issue where he would be unable to urinate. Patient was educated by nursing staff on how to irrigate this if it were to occur. However, he was not comfortable doing this at home. Patient was subsequently monitored in the emergency department for several hours and required the Alvarenga to be irrigated fairly frequently due to a buildup of clots. Patient reports admission over the summer for a similar issue. Patient subsequently admitted to medicine for hematuria and urinary retention. Consult placed for urology. Renal ultrasound ordered with results pending at the time of admission. Case discussed with ED attending Dr. Hayes. Undiagnosed new problem with uncertain prognosis? @ -None Drug Therapy requiring intensive monitoring for toxicity (Heparin, Nitro, Insulin, Cardizem)? @ -None Were any procedures done? @ -None Diagnosis/symptom? @ -Hematuria, urinary retention Acute, or Chronic, or Acute on Chronic? @ -Acute Uncomplicated (without systemic symptoms) or Complicated (systemic symptoms)? @ -Uncomplicated Side effects of treatment? @ -None Exacerbation, Progression, or Severe Exacerbation] @ -Not applicable Poses a threat to life or bodily function? @ -No - Lab Data Result diagrams: 03/30/24 21:48 03/30/24 21:48 Lab Results 03/30/24 03/30/24 03/30/24 Range/Units 14:07 21:48 21:48 WBC 8.5 (3.8-10.6) k/uL RBC 4.41 (4.30-5.90) m/uL Hgb 14.2 (13.0-17.5) gm/dL Hct 43.0 (39.0-53.0) % MCV 97.3 (80.0-100.0) fL MCH 32.1 (25.0-35.0) pg MCHC 33.0 (31.0-37.0) g/dL RDW 15.1 (11.5-15.5) % Plt Count 217 (150-450) k/uL MPV 7.2 Neutrophils % 64 % Lymphocytes % 22 % Monocytes % 8 % Eosinophils % 3 % Basophils % 0 % Neutrophils # 5.5 (1.3-7.7) k/uL Lymphocytes # 1.9 (1.0-4.8) k/uL Monocytes # 0.7 (0-1.0) k/uL Eosinophils # 0.3 (0-0.7) k/uL Basophils # 0.0 (0-0.2) k/uL PT 12.0 (10.0-12.5) sec INR 1.1 (<1.2) APTT 25.6 (22.0-30.0) sec Sodium (137-145) mmol/L Potassium (3.5-5.1) mmol/L Chloride (98-107) mmol/L Carbon Dioxide (22-30) mmol/L Anion Gap mmol/L BUN (9-20) mg/dL Creatinine (0.66-1.25) mg/dL Est GFR (CKD-EPI)AfAm (>60 ml/min/1.73 sqM) Est GFR (CKD-EPI)NonAf (>60 ml/min/1.73 sqM) Glucose (74-99) mg/dL Calcium (8.4-10.2) mg/dL Total Bilirubin (0.2-1.3) mg/dL AST (17-59) U/L ALT (4-49) U/L Alkaline Phosphatase (38-126) U/L Total Protein (6.3-8.2) g/dL Albumin (3.5-5.0) g/dL Urine Color Red Urine Appearance Bloody (Clear) Urine RBC >182 H (0-5) /hpf Urine WBC 5 (0-5) /hpf 03/30/24 Range/Units 21:48 WBC (3.8-10.6) k/uL RBC (4.30-5.90) m/uL Hgb (13.0-17.5) gm/dL Hct (39.0-53.0) % MCV (80.0-100.0) fL MCH (25.0-35.0) pg MCHC (31.0-37.0) g/dL RDW (11.5-15.5) % Plt Count (150-450) k/uL MPV Neutrophils % % Lymphocytes % % Monocytes % % Eosinophils % % Basophils % % Neutrophils # (1.3-7.7) k/uL Lymphocytes # (1.0-4.8) k/uL Monocytes # (0-1.0) k/uL Eosinophils # (0-0.7) k/uL Basophils # (0-0.2) k/uL PT (10.0-12.5) sec INR (<1.2) APTT (22.0-30.0) sec Sodium 135 L (137-145) mmol/L Potassium 4.2 (3.5-5.1) mmol/L Chloride 108 H (98-107) mmol/L Carbon Dioxide 22 (22-30) mmol/L Anion Gap 5 mmol/L BUN 15 (9-20) mg/dL Creatinine 0.80 (0.66-1.25) mg/dL Est GFR (CKD-EPI)AfAm >90 (>60 ml/min/1.73 sqM) Est GFR (CKD-EPI)NonAf >90 (>60 ml/min/1.73 sqM) Glucose 149 H (74-99) mg/dL Calcium 8.8 (8.4-10.2) mg/dL Total Bilirubin 0.5 (0.2-1.3) mg/dL AST 29 (17-59) U/L ALT 25 (4-49) U/L Alkaline Phosphatase 109 (38-126) U/L Total Protein 6.9 (6.3-8.2) g/dL Albumin 4.0 (3.5-5.0) g/dL Urine Color Urine Appearance (Clear) Urine RBC (0-5) /hpf Urine WBC (0-5) /hpf Disposition Clinical Impression: Hematuria, Urinary retention Disposition: ADMITTED IP TO THIS HOSP Referrals: Abdullahi Champion MD [Primary Care Provider] - 1-2 days Time of Disposition: 14:57
[2024-03-30 14:36] LABS: RBC,Urine >182 /hpf (0-5); WBC,Urine 5 /hpf (0-5)
[2024-03-30 14:38] LABS: Appearance,Urine Bloody (Clear); Color,Urine Red
[2024-03-30 21:56] LABS: Basophils % (A) 0 %; Eosinophils # (A) 0.3 k/uL (0-0.7); Eosinophils % (A) 3 %; HGB 14.2 gm/dL (13.0-17.5); Lymphocytes # (A) 1.9 k/uL (1.0-4.8); Lymphocytes % (A) 22 %; MCH 32.1 pg (25.0-35.0); MCV 97.3 fL (80.0-100.0); Mean Platelet Volume 7.2; Monocytes # (A) 0.7 k/uL (0-1.0); Monocytes % (A) 8 %; Neutrophils # (A) 5.5 k/uL (1.3-7.7); Neutrophils % (A) 64 %; Platelet Count 217 k/uL (150-450); RBC 4.41 m/uL (4.30-5.90); RDW 15.1 % (11.5-15.5); WBC 8.5 k/uL (3.8-10.6)
[2024-03-30 22:08] LABS: ALT 25 U/L (4-49); AST 29 U/L (17-59); African American GFR (CKD) >90 (>60 ml/min/1.73 sqM); Alkaline Phosphatase 109 U/L (38-126); Anion Gap 5 mmol/L; Blood Urea Nitrogen 15 mg/dL (9-20); Calcium 8.8 mg/dL (8.4-10.2); Carbon Dioxide 22 mmol/L (22-30); Chloride 108 mmol/L (98-107); Glucose 149 mg/dL (74-99); Non-African American GFR(CKD) >90 (>60 ml/min/1.73 sqM); Potassium 4.2 mmol/L (3.5-5.1); Sodium 135 mmol/L (137-145); Total Bilirubin 0.5 mg/dL (0.2-1.3); Total Protein 6.9 g/dL (6.3-8.2)
[2024-03-30 22:14] LABS: INR 1.1 (<1.2); Partial Thromboplastin Time 25.6 sec (22.0-30.0)
[2024-03-30] MEDS ORDERED: HYDROcodone/APAP 5-325MG 1 EACH TAB PO PRN (22:52)
[2024-03-30] MEDS ORDERED: ONDANSETRON 4 MG/2 ML VIAL IVP PRN (22:52)
[2024-03-30] MEDS ORDERED: NALOXONE 0.4 MG/ML 1 ML VIAL IV PRN (22:52)
[2024-03-30] MEDS ORDERED: ACETAMINOPHEN TAB 325 MG TAB PO PRN (22:52)
[2024-03-30] MEDS ORDERED: MORPHINE SULFATE 4 MG/ML SYRINGE IV PRN (22:52)
--- NOTE | 2024-03-31 00:26 | US ---
EXAM: US Retroperitoneal Limited, Renal CLINICAL HISTORY: ITS.REASON US Reason: Hematuria TECHNIQUE: Real-time limited ultrasound of the retroperitoneum with image documentation. COMPARISON: No previous studies. FINDINGS: Right kidney: Moderate right hydronephrosis is noted. No stones. Right kidney measures 12.2 x 0.2 x 7.1 cm. Left kidney: Moderate to severe left hydronephrosis. A 3.1 x 3.5 x 3. 4 cm simple cyst at the upper pole region of the left kidney is noted. No stones. Left kidney measures 13.4 x 6.6 x 7.7 cm. Bladder: Bladder is in a partially contracted state containing a Alvarenga catheter. Ureteral jets are not visualized. IMPRESSION: 1. Bilateral hydronephrosis of uncertain etiology. CT imaging of the abdomen pelvis renal stone protocol is advised to follow. 2. Alvarenga catheter within the bladder.
[2024-03-31] MEDS: PANTOPRAZOLE 40 MG/10 ML VIAL IV SCH (09:06)
[2024-03-31] MEDS: TAMSULOSIN 0.4 MG CAP.ER.24H PO SCH (10:29)
--- NOTE | 2024-03-31 14:09 | P.HPIM ---
History of Present Illness H&P Date: 03/31/24 History of present illness; Patient is 68-year-old male with CAD, diabetes mellitus, history of DVT, hyperlipidemia, hypertension, DERRICK on CPAP, thyroid disease, history of prostate cancer with radiation presenting with hematuria. Patient was seen in the ER 6 days ago and also presented with hematuria at that time and also has history of hematuria with urinary retention prior to last week in summer. He was discharged on Bactrim for potential UTI and stopped taking antibiotics after 2 days. Initially he had suprapubic tenderness and developed urinary retention. He has no other associated symptoms. Bladder scan was completed and found 781 mL of urine and Alvarenga catheter was subsequently inserted with greater than 1200 mL of urine drained with symptomatic relief. Will Alvarenga catheter was then in ED continuous irrigation to prevent buildup of clots. Initial labs WBC 8.5, hemoglobin 14.2, platelets 217, APTT 25.6, sodium 135, potassium 4.2, chloride 108, bicarb 22, gap 5, BUN 15, creatinine 0.80, glucose 149, urine with RBC> 182 and bloody. Abdominal bladder ultrasound findings of bilateral hydronephrosis Spoke with the ER physician, patient admission was accepted by internal medicine service for treatment. REVIEW OF SYSTEMS: Pertinent positives and negatives noted in HPI. PHYSICAL EXAMINATION: Vitals reviewed GENERAL: No acute distress. Well developed, well nourished. Alvarenga catheter in place with bloody fluid noted. HEENT: Pupils are round and equally reacting to light. EOMI. No scleral icterus. Normocephalic, atraumatic. No pharyngeal erythema. No thyromegaly. CARDIOVASCULAR: S1 and S2 present. No murmurs, rubs, or gallops. PULMONARY: Chest is clear to auscultation, no wheezing, rhonchi, or crackles. ABDOMEN: Soft, nontender, nondistended, normoactive bowel sounds. No palpable organomegaly. MUSCULOSKELETAL: No apparent joint swelling and deformities. EXTREMITIES: No apparent cyanosis, clubbing, or pedal edema. NEUROLOGICAL: The patient is alert and oriented x3, Gross neurological examination did not reveal any focal deficits. SKIN: No apparent rashes. Assessment and plan Patient is 68-year-old male with CAD, diabetes mellitus, history of DVT, hyperlipidemia, hypertension, DERRICK on CPAP, thyroid disease, history of prostate cancer with numerous sessions of radiation presenting with hematuria and urinary retention. 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 Resume oral medications #Coronary artery disease - Resume home Aspirin - Resume home Statin - Resume home Metoprolol #Anxiety/Depression - Resume home appropriate #DERRICK on CPAP Resume home CPAP HS F: P.o. E: Replete as needed N: Heart healthy diet DVT ppx: Holding due to hematuria Code status: Full code Anticipated discharge place: Home tomorrow tomorrow Anticipated discharge time: Tomorrow Dictation was produced using [employer] dictation software. Please excuse any gra mmatical, word or spelling errors. Past Medical History Past Medical History: Coronary Artery Disease (CAD), Cancer, Diabetes Mellitus, Deep Vein Thrombosis (DVT), Hyperlipidemia, Hypertension, Sleep Apnea/CPAP/BIPAP, Thyroid Disorder Additional Past Medical History / Comment(s): Prostate CA-received radiation, 2017 dvt rt leg 30 yrs ago,uses cpap, thyroid 4-5 yrs Graves disease, peripheral arterial disease History of Any Multi-Drug Resistant Organisms: None Reported Additional Past Surgical History / Comment(s): Aortobifemoral bypass, right eye surgery due to Graves., Past Anesthesia/Blood Transfusion Reactions: No Reported Reaction Past Psychological History: No Psychological Hx Reported Smoking Status: Current every day smoker Past Alcohol Use History: None Reported Additional Past Alcohol Use History / Comment(s): Smokes 1 ppd since age 15. Past Drug Use History: None Reported - Past Family History Mother Family Medical History: No Reported History Additional Family Medical History / Comment(s): "Bad legs." Medications and Allergies Home Medications Medication Instructions Recorded Confirmed Type buPROPion HCL [buPROPion HCL XL] 150 mg PO HS 04/04/22 03/30/24 History Pioglitazone [Actos] 15 mg PO HS 10/23/23 03/30/24 History metFORMIN HCL 500 mg PO HS 10/23/23 03/30/24 History Aspirin EC [Ecotrin Low Dose] 81 mg PO HS 03/30/24 03/30/24 History Metoprolol Tartrate [Lopressor] 25 mg PO HS 03/30/24 03/30/24 History amLODIPine [Norvasc] 2.5 mg PO HS 03/30/24 03/30/24 History Allergies Allergy/AdvReac Type Severity Reaction Status Date / Time No Known Allergies Allergy Verified 03/30/24 13:13 Physical Exam Vitals: Vital Signs Temp Pulse Pulse Resp BP BP Pulse Ox 03/31/24 07:00 97.9 F 87 17 127/74 95 03/31/24 02:00 98.0 F 94 18 162/92 97 03/31/24 00:49 86 16 114/76 97 03/30/24 23:42 82 16 115/62 94 L 03/30/24 14:46 60 16 132/73 94 L Intake and Output 03/30/24 03/31/24 03/31/24 22:59 06:59 14:59 Intake Total 118 Output Total 200 1325 Balance -200 -1325 118 Intake: Oral 118 Output: Urine 200 1325 Uretheral (Alvarenga) 200 Other: Voiding Method Indwelling Catheter Self-Catheterization Weight 106.594 kg Results CBC & Chem 7: 03/30/24 21:48 03/30/24 21:48 Labs: Abnormal Lab Results - Last 24 Hours (Table) 03/30/24 03/30/24 Range/Units 14:07 21:48 Sodium 135 L (137-145) mmol/L Chloride 108 H (98-107) mmol/L Glucose 149 H (74-99) mg/dL Urine RBC >182 H (0-5) /hpf
[2024-03-31] MEDS: PIOGLITAZONE 15 MG TAB PO SCH (19:39)
[2024-03-31] MEDS: amLODIPine 5 MG TAB PO SCH (19:39)
[2024-03-31] MEDS: buPROPion XL 150 MG TAB.ER.24H PO SCH (19:40)
[2024-03-31] MEDS: metFORMIN 500 MG TAB PO SCH (19:40)
[2024-03-31] MEDS: METOPROLOL TARTRATE 25 MG TAB PO SCH (19:40)
[2024-03-31] MEDS: ASPIRIN 81 MG PO SCH (19:40)
--- NOTE | 2024-03-31 21:06 | P.GSCN ---
History of Present Illness Consult date: 03/31/24 Reason for Consult: Gross hematuria, urinary retention History of present illness: This is a 68-year-old male history of prostate cancer currently in remission previously treated with radiation therapy. Presented to the hospital with difficulty voiding associated with gross hematuria with clots. Subsequently a 20 Citizen [place] Alvarenga catheter was placed in the ER for his urinary retention. He did have a hospital admission in November with similar complaints, at that point underwent a CT abdomen pelvis which showed bilateral hydronephrosis, and a bladder mass versus a clot, subsequently underwent an office cystoscopy by Dr. Zimmerman which showed evidence of radiation cystitis but no masses were visualized. He is hemoglobin is stable at 14.2. He is not on any blood thinners. He was previously on Flomax but he discontinued, and indicated prior to this event he was not having no difficulty voiding. His creatinine is stable at 0.8 Review of Systems - Constitutional Denies fever, Denies weight loss - Cardiovascular Denies chest pain, Denies shortness of breath - Respiratory Denies cough, Denies 7 - Gastrointestinal Reports as per HPI - Genitourinary Reports hematuria, Reports urinary retention, Denies dysuria Past Medical History Past Medical History: Coronary Artery Disease (CAD), Cancer, Diabetes Mellitus, Deep Vein Thrombosis (DVT), Hyperlipidemia, Hypertension, Sleep Apnea/CPAP/BIPAP, Thyroid Disorder Additional Past Medical History / Comment(s): Prostate CA-received radiation, 2017 dvt rt leg 30 yrs ago,uses cpap, thyroid 4-5 yrs Graves disease, peripheral arterial disease History of Any Multi-Drug Resistant Organisms: None Reported Additional Past Surgical History / Comment(s): Aortobifemoral bypass, right eye surgery due to Graves., Past Anesthesia/Blood Transfusion Reactions: No Reported Reaction Past Psychological History: No Psychological Hx Reported Smoking Status: Current every day smoker Past Alcohol Use History: None Reported Additional Past Alcohol Use History / Comment(s): Smokes 1 ppd since age 15. Past Drug Use History: None Reported - Past Family History Mother Family Medical History: No Reported History Additional Family Medical History / Comment(s): "Bad legs." Medications and Allergies Home Medications Medication Instructions Recorded Confirmed Type buPROPion HCL [buPROPion HCL XL] 150 mg PO HS 04/04/22 03/30/24 History Pioglitazone [Actos] 15 mg PO HS 10/23/23 03/30/24 History metFORMIN HCL 500 mg PO HS 10/23/23 03/30/24 History Aspirin EC [Ecotrin Low Dose] 81 mg PO HS 03/30/24 03/30/24 History Metoprolol Tartrate [Lopressor] 25 mg PO HS 03/30/24 03/30/24 History amLODIPine [Norvasc] 2.5 mg PO HS 03/30/24 03/30/24 History Allergies Allergy/AdvReac Type Severity Reaction Status Date / Time No Known Allergies Allergy Verified 03/30/24 13:13 Surgical - Exam Vital Signs Temp Pulse Resp BP Pulse Ox 97.4 F L 70 16 154/84 98 03/30/24 13:10 03/30/24 13:10 03/30/24 13:10 03/30/24 13:10 03/30/24 13:10 - General no distress, no pain - Eyes normal ocular movement, no pale - ENT normal nares, normal mucosa - Respiratory normal expansion, normal respiratory effort - Abdomen Abdomen: soft, non tender, no distended - Psychiatric oriented to time, oriented to person, oriented to place Results - Labs 03/30/24 21:48 03/30/24 21:48 Abnormal Lab Results - Last 24 Hours (Table) 03/30/24 Range/Units 21:48 Sodium 135 L (137-145) mmol/L Chloride 108 H (98-107) mmol/L Glucose 149 H (74-99) mg/dL Diabetes panel 03/30/24 Range/Units 21:48 Sodium 135 L (137-145) mmol/L Potassium 4.2 (3.5-5.1) mmol/L Chloride 108 H (98-107) mmol/L Carbon Dioxide 22 (22-30) mmol/L BUN 15 (9-20) mg/dL Creatinine 0.80 (0.66-1.25) mg/dL Glucose 149 H (74-99) mg/dL Calcium 8.8 (8.4-10.2) mg/dL AST 29 (17-59) U/L ALT 25 (4-49) U/L Alkaline Phosphatase 109 (38-126) U/L Total Protein 6.9 (6.3-8.2) g/dL Albumin 4.0 (3.5-5.0) g/dL Calcium panel 03/30/24 Range/Units 21:48 Calcium 8.8 (8.4-10.2) mg/dL Albumin 4.0 (3.5-5.0) g/dL Pituitary panel 03/30/24 Range/Units 21:48 Sodium 135 L (137-145) mmol/L Potassium 4.2 (3.5-5.1) mmol/L Chloride 108 H (98-107) mmol/L Carbon Dioxide 22 (22-30) mmol/L BUN 15 (9-20) mg/dL Creatinine 0.80 (0.66-1.25) mg/dL Glucose 149 H (74-99) mg/dL Calcium 8.8 (8.4-10.2) mg/dL Adrenal panel 03/30/24 Range/Units 21:48 Sodium 135 L (137-145) mmol/L Potassium 4.2 (3.5-5.1) mmol/L Chloride 108 H (98-107) mmol/L Carbon Dioxide 22 (22-30) mmol/L BUN 15 (9-20) mg/dL Creatinine 0.80 (0.66-1.25) mg/dL Glucose 149 H (74-99) mg/dL Calcium 8.8 (8.4-10.2) mg/dL Total Bilirubin 0.5 (0.2-1.3) mg/dL AST 29 (17-59) U/L ALT 25 (4-49) U/L Alkaline Phosphatase 109 (38-126) U/L Total Protein 6.9 (6.3-8.2) g/dL Albumin 4.0 (3.5-5.0) g/dL Assessment and Plan Assessment: 68-year-old male history of gross hematuria secondary to radiation cystitis. Admitted to the hospital for gross hematuria and clot retention, currently has a 20 [place] Alvarenga catheter that is draining hematuric urine. -Catheter can be irrigated as needed -If urine starts clearing up we will plan on removing the catheter while inpatient -Will restart Flomax
[2024-04-01 07:31] VITALS: BP 127/77; PULSE 69; RESP 17; TEMP 97.4
[2024-04-01 08:45] LABS: Basophils # (A) 0.05 X 10*3/uL (0.00-0.10); Basophils % (A) 0.6 %; Eosinophils # (A) 0.26 X 10*3/uL (0.04-0.35); Eosinophils % (A) 3.3 %; HCT 45.9 % (39.6-50.0); HGB 14.6 g/dL (13.0-17.0); Lymphocytes # (A) 2.03 X 10*3/uL (0.90-5.00); Lymphocytes % (A) 25.7 %; MCHC 31.8 g/dL (32.0-37.0); MCV 97.5 FL (80.0-97.0); Mean Platelet Volume 9.8 FL (9.5-12.2); Monocytes # (A) 0.91 X 10*3/uL (0.20-1.00); Monocytes % (A) 11.5 %; NRBC Per 100 WBC 0 X 10*3/uL (0.00-0.01); Neutrophils % (A) 58.4 %; Platelet Count 242 X 10*3/uL (140-440); RBC 4.71 X 10*6/uL (4.40-5.60); RDW 15.9 % (11.5-14.5); WBC 7.89 X 10*3/uL (4.50-10.00)
[2024-04-01 08:50] LABS: BUN/Creat Ratio 14.22 Ratio (12.00-20.00); Blood Urea Nitrogen 12.8 mg/dL (9.0-27.0); Calcium 9.1 mg/dL (8.7-10.3); Carbon Dioxide 24.6 mmol/L (21.6-31.8); Chloride 102 mmol/L (96-109); Glucose 136 mg/dL (70-110); Potassium 4.9 mmol/L (3.5-5.5); Sodium 138 mmol/L (135-145)
--- NOTE | 2024-04-01 09:27 | P.PN ---
Subjective Progress Note Date: 04/01/24 No acute overnight event, urine is clear this morning Objective - Vital Signs Vital signs: Vital Signs Temp 97.4 F L 04/01/24 07:00 Pulse 69 04/01/24 07:00 Resp 17 04/01/24 07:00 BP 127/77 04/01/24 07:00 Pulse Ox 97 04/01/24 07:00 FiO2 21 04/01/24 03:51 Intake & Output 03/31/24 04/01/24 04/01/24 18:59 06:59 18:59 Intake Total 354 118 Output Total 800 900 Balance -446 -900 118 Intake: Oral 354 118 Output: Urine 800 900 Other: Voiding Method Self-Catheterization Indwelling Catheter Indwelling Catheter - Constitutional General appearance: Present: no acute distress - Gastrointestinal General gastrointestinal: Present: soft. Absent: distended, tenderness - Psychiatric Psychiatric: Present: A&O x's 3 - Labs CBC & Chem 7: 04/01/24 05:25 04/01/24 05:25 Labs: Abnormal Lab Results - Last 24 Hours (Table) 04/01/24 04/01/24 Range/Units 05:25 05:25 MCV 97.5 H (80.0-97.0) FL MCHC 31.8 L (32.0-37.0) g/dL RDW 15.9 H (11.5-14.5) % Glucose 136 H (70-110) mg/dL Assessment and Plan Assessment: 68-year-old male history of gross hematuria secondary to radiation cystitis. Admitted to the hospital for gross hematuria and clot retention, currently has a 20 [place] Alvarenga catheter. Urine is clear this morning -Alvarenga catheter can be removed, if postvoid residuals less than 400 mL he can be discharged home without the catheter, if greater than 400 and catheter can be reinserted and he can be discharged home with a Alvarenga catheter with an outpatient follow-up with Dr. Zimmerman in 1 week -Continue Flomax, advised patient to continue taking the Flomax as an outpatient
--- NOTE | 2024-04-01 13:28 | P.DS ---
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 New medication tamsulosin 0.4 mg daily. He may continue on aspirin for now, however if he continues to have hematuria or urinary retention consider discontinuing. He is discharged without need for Alvarenga catheter at this time. Patient is to follow-up with his PCP and Dr. Zimmerman in 1 week. History of present illness; Patient is 68-year-old male with CAD, diabetes mellitus, history of DVT, hyperlipidemia, hypertension, DERRICK on CPAP, thyroid disease, history of prostate cancer with radiation presenting with hematuria. Patient was seen in the ER 6 days ago and also presented with hematuria at that time and also has history of hematuria with urinary retention prior to last week in summer. He was discharged on Bactrim for potential UTI and stopped taking antibiotics after 2 days. Initially he had suprapubic tenderness and developed urinary retention. He has no other associated symptoms. Bladder scan was completed and found 781 mL of urine and Alvarenga catheter was subsequently inserted with greater than 1200 mL of urine drained with symptomatic relief. Will Alvarenga catheter was then in ED continuous irrigation to prevent buildup of clots. Initial labs WBC 8.5, hemoglobin 14.2, platelets 217, APTT 25.6, sodium 135, potassium 4.2, chloride 108, bicarb 22, gap 5, BUN 15, creatinine 0.80, glucose 149, urine with RBC> 182 and bloody. Abdominal bladder ultrasound findings of bilateral hydronephrosis. While inpatient patient treated for hematuria and urinary retention. Likely has underlying radiation cystitis. While inpatient he was followed by urology. Patient had Alvarenga cath inserted which was in place for 1 day and remained without blood or clotting. Alvarenga catheter removed and patient was able to urinate well and bladder scan showed <10 mL bladder volume postvoid. PHYSICAL EXAMINATION: Vitals reviewed GENERAL: No acute distress. Well developed, well nourished. Alvarenga catheter in place with bloody fluid noted. HEENT: Pupils are round and equally reacting to light. EOMI. No scleral icterus. Normocephalic, atraumatic. No pharyngeal erythema. No thyromegaly. CARDIOVASCULAR: S1 and S2 present. No murmurs, rubs, or gallops. PULMONARY: Chest is clear to auscultation, no wheezing, rhonchi, or crackles. ABDOMEN: Soft, nontender, nondistended, normoactive bowel sounds. No palpable or ganomegaly. MUSCULOSKELETAL: No apparent joint swelling and deformities. EXTREMITIES: No apparent cyanosis, clubbing, or pedal edema. NEUROLOGICAL: The patient is alert and oriented x3, Gross neurological examination did not reveal any focal deficits. SKIN: No apparent rashes. Dictation was produced using [employer] dictation software. please excuse any grammatical, word or spelling errors. Patient Condition at Discharge: Stable Plan - Discharge Summary New Discharge Prescriptions: New Tamsulosin [Flomax] 0.4 mg PO PC-BRKFST #30 cap Continue buPROPion HCL [buPROPion HCL XL] 150 mg PO HS metFORMIN HCL 500 mg PO HS Aspirin EC [Ecotrin Low Dose] 81 mg PO HS Pioglitazone [Actos] 15 mg PO HS amLODIPine [Norvasc] 2.5 mg PO HS Metoprolol Tartrate [Lopressor] 25 mg PO HS Discharge Medication List buPROPion HCL [buPROPion HCL XL] 150 mg PO HS 04/04/22 [History] Pioglitazone [Actos] 15 mg PO HS 10/23/23 [History] metFORMIN HCL 500 mg PO HS 10/23/23 [History] Aspirin EC [Ecotrin Low Dose] 81 mg PO HS 03/30/24 [History] Metoprolol Tartrate [Lopressor] 25 mg PO HS 03/30/24 [History] amLODIPine [Norvasc] 2.5 mg PO HS 03/30/24 [History] Tamsulosin [Flomax] 0.4 mg PO PC-BRKFST #30 cap 04/01/24 [Rx] Follow up Appointment(s)/Referral(s): Danny Zimmerman MD [STAFF PHYSICIAN] - 1 Week Abdullahi Champion MD [Primary Care Provider] - 1-2 days Patient Instructions/Handouts: Urinary Retention in Men (ED), Hematuria (ED) Discharge Disposition: HOME SELF-CARE
== END 2024-04-01 12:55 | disposition home or self-care (01) ==
LOC: EC 13:05 → 6NMEDSUR 23:39
PROVIDERS: ADMIT Hospitalist; ATTEND Hospitalist
DX: N30.41 Irradiation cystitis with hematuria (principal); R33.8 Other retention of urine; Y84.2 Radiological procedure and radiotherapy as the cause of abnormal reaction of the patient, or of later complication, without mention of misadventure at the time of the procedure; Y78.1 Therapeutic (nonsurgical) and rehabilitative radiological devices associated with adverse incidents; E11.65 Type 2 diabetes mellitus with hyperglycemia; I25.10 Atherosclerotic heart disease of native coronary artery without angina pectoris; E78.5 Hyperlipidemia, unspecified; I10 Essential (primary) hypertension; E11.51 Type 2 diabetes mellitus with diabetic peripheral angiopathy without gangrene; G47.33 Obstructive sleep apnea (adult) (pediatric); F32.A Depression, unspecified; F41.9 Anxiety disorder, unspecified; F17.200 Nicotine dependence, unspecified, uncomplicated; Z85.46 Personal history of malignant neoplasm of prostate; Z86.718 Personal history of other venous thrombosis and embolism; Z92.3 Personal history of irradiation; Z79.82 Long term (current) use of aspirin; Z79.84 Long term (current) use of oral hypoglycemic drugs; Z79.899 Other long term (current) drug therapy
CPT/HCPCS: 96374; 99284; 51798; 36415; 94660; 80053; 80048; 85025 ×2; 85610; 85730; 81001; 76770; G0378 ×3; J2470

== ENCOUNTER 2024-04-17 12:23 | Day surgery (SDC) | payer MEDICARE, OTHER ==
[~2024-04-17 12:23] MED LIST changes: -ALPRAZolam 0.25 MG TAB PO PRN; -ALPRAZolam 0.5 MG TAB PO PRN; -HEPARIN SODIUM,PORCINE (1 ML) 2,500 UNIT in SODIUM CHLORIDE 0.9% 250 ML IRRIGATION PRN; -HEPARIN SODIUM,PORCINE 10,000 UNIT in SODIUM CHLORIDE 0.9% 1,000 ML IRRIGATION PRN; +HYDROmorphone 0.5 MG/0.5 ML SYRINGE IVP PRN; +LIDOCAINE 1% (10MG/ML) FOR IV START INTRADERMA PRN; -NITROGLYCERIN SL TABS 0.4 MG TAB SUBLINGUAL PRN; +droPERidol 5 MG/2 ML VIAL IVP PRN
--- NOTE | 2024-04-17 13:12 | P.GSHP ---
History of Present Illness H&P Date: 04/17/24 Chief Complaint: Hydronephrosis The patient is a 68-year-old white male with a history of prostate cancer, treated with radiation therapy in 2018. He experiences occasional gross hematuria due to radiation cystitis. He was hospitalized earlier this month for this. Renal ultrasound showed moderate right hydronephrosis, and moderate to severe left hydronephrosis. CT scan in November 2023 showed bilateral hydroureteronephrosis. He now comes for further evaluation. - Cardiovascular Cardiovascular: Reports high blood pressure - Genitourinary (Male) Genitourinary: Reports hematuria, Reports incontinence, Denies flank pain Past Medical History Past Medical History: Coronary Artery Disease (CAD), Cancer, Diabetes Mellitus, Deep Vein Thrombosis (DVT), Hyperlipidemia, Hypertension, Sleep Apnea/CPAP/BIPAP, Thyroid Disorder Additional Past Medical History / Comment(s): Prostate CA-received radiation, 2016 dvt rt leg 30 yrs ago,uses cpap, thyroid 4-5 yrs Graves disease, peripheral arterial disease History of Any Multi-Drug Resistant Organisms: None Reported Additional Past Surgical History / Comment(s): Aortobifemoral bypass, right eye surgery due to Graves., Past Anesthesia/Blood Transfusion Reactions: No Reported Reaction Smoking Status: Current every day smoker - Past Family History Mother Family Medical History: No Reported History Additional Family Medical History / Comment(s): "Bad legs." Medications and Allergies Home Medications Medication Instructions Recorded Confirmed Type buPROPion HCL [buPROPion HCL XL] 150 mg PO HS 04/04/22 04/14/24 History Pioglitazone [Actos] 15 mg PO HS 10/23/23 04/14/24 History metFORMIN HCL 500 mg PO HS 10/23/23 04/14/24 History Aspirin EC [Ecotrin Low Dose] 81 mg PO HS 03/30/24 04/14/24 History Metoprolol Tartrate [Lopressor] 25 mg PO HS 03/30/24 04/14/24 History amLODIPine [Norvasc] 2.5 mg PO HS 03/30/24 04/14/24 History Atorvastatin [Lipitor] 40 mg PO HS 04/14/24 04/14/24 History Tamsulosin [Flomax] 0.4 mg PO HS 04/14/24 04/14/24 History Allergies Allergy/AdvReac Type Severity Reaction Status Date / Time No Known Allergies Allergy Verified 04/14/24 10:07 Surgical - Exam - General well developed, well nourished, no distress - Respiratory normal respiratory effort - Abdomen Abdomen: soft, non tender, no guarding, no rigid, no rebound - Genitourinary normal penis with no external lesions, testicles non-tender - Psychiatric oriented to time, oriented to person, oriented to place, speech is normal, memory intact Assessment and Plan (1) Unspecified hydronephrosis Current Visit: Yes Status: Acute Code(s): N13.30 - UNSPECIFIED HYDRONEPHROSIS SNOMED Code(s): 36786687 Plan: Cystoscopy, bilateral retrograde pyelograms, possible ureteroscopy, possible ureteral stent insertion. The procedure has been reviewed in detail with the patient, as well as the rationale for the procedure. He is aware of potential risks, which include anesthesia, bleeding, infection, and ureteral injury.
[2024-04-17 13:45] LABS: Glucose,Whole Blood 97 mg/dL (70-110)
[2024-04-17] MEDS: LACTATED RINGERS 1,000 ML IV ONE (13:45)
[2024-04-17] MEDS: LACTATED RINGERS 1,000 ML IV SCH (13:45)
[2024-04-17] MEDS: ONDANSETRON 4 MG/2 ML VIAL IVP ONE (13:45)
[2024-04-17] MEDS: DEXAMETHASONE SOD PHOSPHATE 4 MG/ML 1 ML VIAL IV ONE (13:45)
[2024-04-17] MEDS ORDERED: MIDAZOLAM 2 MG/2 ML VIAL ONE (14:23)
[2024-04-17] MEDS ORDERED: SUCCINYLCHOLINE CHLORIDE 200 MG/10 ML VIAL IV ONE (14:23)
[2024-04-17] MEDS ORDERED: GLYCOPYRROLATE 0.2 MG/ML 2 ML VIAL ONE (14:23)
[2024-04-17] MEDS ORDERED: PROPOFOL 10 MG/ML 20 ML VIAL IV ONE (14:23)
[2024-04-17] MEDS ORDERED: ROCURONIUM 10 MG/ML (5 ML VIAL) IV ONE (14:23)
[2024-04-17] MEDS ORDERED: NEOSTIGMINE 1 MG/ML 10 ML VIAL ONE (14:23)
[2024-04-17] MEDS: IOPAMIDOL-370 100ML BTL MISCELLANE ONE (14:57)
--- NOTE | 2024-04-17 15:07 | P.OP ---
Date of Procedure: 04/17/24 Preoperative Diagnosis: Bilateral hydroureteronephrosis Postoperative Diagnosis: Same Procedure(s) Performed: Cystoscopy, bilateral retrograde pyelograms Anesthesia: JOHANA Surgeon: Danny Zimmerman Estimated Blood Loss (ml): 0 IV fluids (ml): 200 Pathology: none sent Condition: stable Disposition: PACU Indications for Procedure: The patient is a 68-year-old white male with a history of prostate cancer, treated with radiation therapy in 2019. He experiences occasional gross hematuria due to radiation cystitis. He was hospitalized earlier this month for this. Renal ultrasound showed moderate right hydronephrosis, and moderate to severe left hydronephrosis. CT scan in November 2023 showed bilateral hydroureteronephrosis. He now comes for further evaluation. Operative Findings: Bilateral hydroureteronephrosis down to the level of the sacrum, where the ureters are medially deviated. 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 Description of Procedure: The patient was taken to the operating room and placed in the dorsolithotomy position, with legs supported in Royce stirrups. The external genitalia was prepped and draped sterilely. The 30 lens was used to introduce the 22-Micronesian Stortz cystoscopic sheath through the urethra and into the bladder under direct vision. The prostatic urethra showed evidence of mild lateral lobe enlargement. The bladder was examined in its entirety. Both ureteral orifices were of normal anatomic location and configuration, and clear urine effluxed from both. No tumors or foreign bodies were seen. Using a 12 Micronesian cone-tip catheter, bilateral retrograde pyelograms were performed. The distal ureters appeared normal bilaterally. Both of the ureters were deviated medially at the level of the sacrum. Proximal to this, the ureters were dilated and tortuous. The bladder was emptied and the cystoscope removed. The patient tolerated the procedure well and was taken to the recovery room in stable condition.
[2024-04-17 15:17] VITALS: TEMP 97.4
--- NOTE | 2024-04-17 15:39 | FL ---
EXAMINATION TYPE: FL urography retrograde DATE OF EXAM: 04/17/2024 FLUOROSCOPY dap 11.834 fl 54.5 sec fl time used anni retrogrades 10 images submitted [facility], , 04/17/2024 3:36 PM
[2024-04-17 16:23] VITALS: BP 131/67; PULSE 72; RESP 20
== END 2024-04-17 16:25 | disposition home or self-care (01) ==
LOC: OR 12:23
PROVIDERS: ATTEND Urology
DX: N13.30 Unspecified hydronephrosis (principal); N30.41 Irradiation cystitis with hematuria; I25.10 Atherosclerotic heart disease of native coronary artery without angina pectoris; E11.9 Type 2 diabetes mellitus without complications; E78.5 Hyperlipidemia, unspecified; I10 Essential (primary) hypertension; I73.9 Peripheral vascular disease, unspecified; E05.00 Thyrotoxicosis with diffuse goiter without thyrotoxic crisis or storm; G47.33 Obstructive sleep apnea (adult) (pediatric); F17.210 Nicotine dependence, cigarettes, uncomplicated; Z85.46 Personal history of malignant neoplasm of prostate; Z92.3 Personal history of irradiation; Z79.899 Other long term (current) drug therapy; Z98.890 Other specified postprocedural states; Z86.718 Personal history of other venous thrombosis and embolism; Z79.84 Long term (current) use of oral hypoglycemic drugs; Z95.1 Presence of aortocoronary bypass graft; Z79.82 Long term (current) use of aspirin
CPT/HCPCS: 74420; 52000; J1100; J0690; J2405; Q9967